=== PATIENT | male | born 1955 | race Caucasian/White ===

== ENCOUNTER 2019-11-29 09:51 | Emergency (ER) | payer MEDICARE, BC ==
[2019-11-29] MEDS: Sodium Chloride 0.9% 1,000 ML IV ONE (10:30)
--- NOTE | 2019-11-29 10:36 | EDM.PDOC ---
ED HPI GENERAL MEDICAL PROBLEM - General Chief Complaint: General Stated Complaint: NAUSEA Time Seen by Provider: 11/29/19 10:25 Source of Information: Reports: Patient History Limitations: Reports: No Limitations - History of Present Illness INITIAL COMMENTS - FREE TEXT/NARRATIVE: Comes into the emergency department with complaint of nausea secondary to chemotherapy. Patient states he had chemotherapy on Friday and started having significant amount of nausea after. He states he has had this happen before and waited approximately a week before seeking treatment however he states that he did not want to wait that long again. He does have Zofran at home and was using that however has not had any relief. He states that he is not able to keep any sort of liquid or food particles down without vomiting them up. Patient states that he concerned that he may become dehydrated so he wanted to be evaluated and nausea under control. Patient denies having any fever, cough, headache, peripheral edema or chest pain. 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 He states most of the treatments have gone fairly well however severe nausea has been 1 of the major side effects at times. Denies any COVID -19 symptoms. Has been relatively healthy throughout the whole course of his cancer diagnosis Onset: Sudden - Related Data Allergies Allergy/AdvReac Type Severity Reaction Status Date / Time No Known Allergies Allergy Verified 11/10/14 06:42 Home Meds: Home Meds Acetaminophen [Tylenol Extra Strength] 500 - 1,000 mg PO Q4H PRN 11/03/14 [ History] Acetaminophen/Diphenhydramine [Tylenol Pm Ex-Strength Caplet] 2 each PO BEDTIME PRN 11/03/14 [History] Cholecalciferol (Vitamin D3) [Vitamin D3] 2,000 unit PO DAILY 11/03/14 [History] Docusate Sodium [Colace] 100 - 200 mg PO DAILY PRN 11/03/14 [History] FLUoxetine [PROzac] 40 mg PO DAILY 11/03/14 [History] Lisinopril 40 mg PO DAILY 11/03/14 [History] Meloxicam [Mobic] 7.5 mg PO DAILY 11/03/14 [History] Metoclopramide [Reglan] 5 mg PO TIDAC 11/03/14 [History] Multivit,Calc,Mins/Iron/Folic [Thera-M] 1 each PO DAILY 11/03/14 [History] Simvastatin [Zocor] 80 mg PO BEDTIME 11/03/14 [History] Warfarin [Coumadin] 7.5 mg PO DAILY 11/03/14 [History] glipiZIDE [Glipizide Xl] 2.5 mg PO DAILY 11/03/14 [History] metFORMIN [Glucophage] 1,000 mg PO BIDMEALS 11/03/14 [History] ED ROS GENERAL - Review of Systems Review Of Systems: See Below Constitutional: Reports: Decreased Appetite. Denies: Fever, Chills HEENT: Reports: No Symptoms Respiratory: Reports: No Symptoms Cardiovascular: Reports: No Symptoms Endocrine: Reports: No Symptoms GI/Abdominal: Reports: Nausea, Vomiting : Reports: No Symptoms Musculoskeletal: Reports: No Symptoms Skin: Reports: No Symptoms Neurological: Reports: No Symptoms Psychiatric: Reports: No Symptoms Hematologic/Lymphatic: Reports: No Symptoms ED EXAM, GENERAL - Physical Exam Exam: See Below Exam Limited By: No Limitations General Appearance: Alert, WD/WN, No Apparent Distress Eye Exam: Bilateral Eye: EOMI, PERRL Throat/Mouth: Normal Inspection, Normal Lips, Normal Voice Head: Atraumatic, Normocephalic Neck: Normal Inspection, Supple, Non-Tender, Full Range of Motion Respiratory/Chest: No Respiratory Distress, Lungs Clear, Normal Breath Sounds, No Accessory Muscle Use, Chest Non-Tender Cardiovascular: Normal Peripheral Pulses, Regular Rate, Rhythm, No Edema, No Murmur GI/Abdominal: Normal Bowel Sounds, Soft, Non-Tender, No Distention, No Mass Back Exam: Normal Inspection, Full Range of Motion Extremities: Normal Inspection, Normal Range of Motion, Non-Tender, Normal Capillary Refill Neurological: Alert, Oriented, CN II-XII Intact, Normal Gait Psychiatric: Normal Affect, Normal Mood Skin Exam: Warm, Dry, Intact, Normal Color, No Rash Course - Orders/Labs/Meds Labs: Laboratory Tests 11/29/19 11/29/19 Range/Units 10:25 10:25 WBC 8.4 (4.0-10.0) x10^3/uL RBC 5.09 (4.5-6.0) x10^6/uL Hgb 14.9 (14.0-18.0) g/dL Hct 43.0 (40.0-52.0) % MCV 84.5 (78.0-93.0) fL MCH 29.3 (26.0-32.0) pg MCHC 34.7 (32.0-36.0) g/dL RDW Coeff of Phuc 15.5 H (10.0-15.0) % Plt Count 290 (130-400) x10^3/uL Neut % (Auto) 89.1 H (50.0-80.0) % Lymph % (Auto) 9.4 L (25.0-50.0) % [place] % (Auto) 0.8 L (2.0-11.0) % Eos % (Auto) 0.1 (0.0-4.0) % Baso % (Auto) 0.6 (0.2-1.2) % Sodium 132 L (136-145) mmol/L Potassium 3.8 (3.5-5.1) mmol/L Chloride 90 L (98-107) mmol/L Carbon Dioxide 28 (21-32) mmol/L Anion Gap 17.8 (10-20) mmol/L BUN 16 (7-18) mg/dL Creatinine 1.1 (0.70-1.30) mg/dL Est Cr Clr Drug Dosing TNP Estimated GFR (MDRD) > 60 Glucose 392 H (74-106) mg/dL Calcium 9.1 (8.5-10.1) mg/dL Corrected Calcium 9.42 (8.5-10.1) mg/dL Total Bilirubin 0.7 (0.2-1.0) mg/dL AST 49 H (15-37) U/L ALT 32 (16-63) U/L Alkaline Phosphatase 98 (46-116) U/L Creatine Kinase 181 (39-308) U/L Total Protein 7.4 (6.4-8.2) g/dL Albumin 3.6 (3.4-5.0) g/dL Globulin 3.8 Albumin/Globulin Ratio 0.95 Meds: Medications Discontinued Medications Generic Name Dose Route Start Last Admin Trade Name Freq PRN Reason Stop Dose Admin Diphenhydramine HCl 25 mg 11/29/19 11:27 11/29/19 11:41 Benadryl IVPUSH 11/29/19 11:28 25 mg ONETIME ONE Administration Sodium Chloride 1,000 mls @ 1,000 mls/hr 11/29/19 10:30 11/29/19 10:30 Normal Saline IV 11/29/19 11:29 1,000 mls/hr ONETIME ONE Administration Metoclopramide HCl 10 mg 11/29/19 11:10 11/29/19 11:15 Reglan IVPUSH 11/29/19 11:11 10 mg ONETIME ONE Administration Prochlorperazine Edisylate 10 mg 11/29/19 10:30 11/29/19 10:38 Compazine IV 11/29/19 10:31 10 mg ONETIME ONE Administration Departure - Departure Time of Disposition: 12:00 Disposition: Home, Self-Care 01 Clinical Impression: Chemotherapy induced nausea and vomiting - Discharge Information *PRESCRIPTION DRUG MONITORING PROGRAM REVIEWED*: Not Applicable *COPY OF PRESCRIPTION DRUG MONITORING REPORT IN PATIENT VIELKA: Not Applicable Instructions: Nausea and Vomiting, Adult, [id number] Forms: ED Department Discharge Additional Instructions: 1. rest 2. increase your water intake 3. Continue all at home medications 4. Activity and diet as tolerated 5. Can take over the counter Tylenol or ibuprofen for any pain or discomfort 6. Follow up with PCP if symptoms continue, return, or progress 7. Call with any questions or concerns Sepsis Event Note - Focused Exam Date Exam was Performed: 11/29/19 Time Exam was Performed: 12:00 - Assessment/Plan Assessment:: 1. chemotherapy induced nausea and vomiting Plan: 1. Compazine, Reglan and Benadryl IV given in the ER. 2. IV initiated in the emergency department 3. IV fluids provided 4. Labs completed in the the ER results reviewed with the patient 5. Patient and nursing staff was updated regarding the plan of care 6. Education provided the patient regarding activity, diet, rest, over-the- counter medication modalities, and follow-up care was provided 7. Patient and family are agreeable to the above plan of care 8. All questions and concerns were addressed with the patient and family prior to discharge
[2019-11-29] MEDS: Prochlorperazine 10 MG/2 ML SDV IV ONE (10:38)
[2019-11-29 11:06] LABS: ANION GAP 17.8 mmol/L (10-20); CHLORIDE,CL 90 mmol/L (98-107); SODIUM,NA 132 mmol/L (136-145)
[2019-11-29] MEDS: Metoclopramide 10 MG/2 ML SDV IVPUSH ONE (11:15)
[2019-11-29] MEDS: diphenhydrAMINE 50 MG/ML SDV IVPUSH ONE (11:41)
[2019-11-29 13:36] VITALS: BP 124/80; PULSE 90
== END 2019-11-29 12:10 | disposition home or self-care (01) ==
LOC: VM.ED 09:51
DX: R11.2 Nausea with vomiting, unspecified (principal); T45.1X5A Adverse effect of antineoplastic and immunosuppressive drugs, initial encounter; Z79.899 Other long term (current) drug therapy; Z79.01 Long term (current) use of anticoagulants
CPT/HCPCS: 80053; 82550; 85025; 96361; 96374; 96375; 99283-GF; 99284-25; J0780; J1200; J2765; J7030

== ENCOUNTER 2020-03-06 12:58 | Inpatient (IN) | payer MEDICARE, BC, MEDICAID ==
[2020-03-06] MEDS ORDERED: Acetaminophen/Diphenhydramine 500-25 MG Tab PO PRN (15:05)
[2020-03-06] MEDS ORDERED: OLANZapine 5 MG Tab PO PRN (15:05)
[2020-03-06] MEDS ORDERED: LORazepam 1 MG Tab PO PRN (15:05)
--- NOTE | 2020-03-06 15:12 | PCM.HP.2 ---
H&P History of Present Illness - General Date of Service: 03/06/20 Admit Problem/Dx: Admission Diagnosis/Problem Admission Diagnosis/Problem Carcinoma of prostate Source of Information: Patient History Limitations: Reports: No Limitations - History of Present Illness Initial Comments - Free Text/Narative: Mr. Mian is a 65 yo male with PMH of metastatic prostate cancer, HTN, h/o TIA, HLD, diabetes, obesity, and depression who is admitted to swing bed for strengthening after an acute hospitalization last week at [facility]. He was hospitalized for symptom (pain, nausea) control as well as to receive his next round of chemotherapy. His medications were adjusted and he was given the chemotherapy. Symptoms were controlled and he was discharged home at the end of last week in stable condition. By the following morning, he could tell that it was not going to go well at home. He noted significant weakness and difficulty ambulating secondary to the weakness as well as to poor balance. He has a friend that has been helping him at home but he has basically been requiring 24/7 cares over the weekend so he had reached out to see if swing bed was an option. He has had some nausea but this has been overall controlled. He has vomited a couple times today but had not been vomiting since discharge otherwise. He has some pain in his back and hip but rates this at 3/10 and says it is well controlled on the morphine. He has had some constipation with the morphine and states that his last BM was last week sometime but he cannot remember the day. He generally has a BM every day to every other day. He has not really had any bloating or abdominal pain related to this. ROS is otherwise negative. He is hoping to get stronger and increase his independence at home. - Related Data Allergies/Adverse Reactions: Allergies Allergy/AdvReac Type Severity Reaction Status Date / Time No Known Allergies Allergy Verified 11/29/19 12:39 Home Medications: Home Meds Acetaminophen [Tylenol Extra Strength] 500 - 1,000 mg PO Q4H PRN 11/03/14 [History] Acetaminophen/Diphenhydramine [Tylenol Pm Ex-Strength Caplet] 2 each PO BEDTIME PRN 11/03/14 [History] Cholecalciferol (Vitamin D3) [Vitamin D3] 2,000 unit PO DAILY 11/03/14 [History] FLUoxetine [PROzac] 40 mg PO DAILY 11/03/14 [History] Multivit,Calc,Mins/Iron/Folic [Thera-M] 1 tab PO DAILY 11/03/14 [History] Warfarin [Coumadin] 7.5 mg PO DAILY 11/03/14 [History] Calcium Carbonate/Vitamin D3 [Os-[place] 500+D] 1 each PO BID 11/29/19 [History] Insulin Degludec [Tresiba] 62 unit SQ DAILY 11/29/19 [History] LORazepam [Ativan] 1 mg PO DAILY PRN 11/29/19 [History] atorvaSTATin [Lipitor] 40 mg PO BEDTIME 11/29/19 [History] Docusate Sodium/Sennosides [Senna Plus] 1 tab PO BID PRN 03/06/20 [History] Morphine [MS Contin] 30 mg PO BID 03/06/20 [History] Naproxen Sodium [Aleve] 220 - 440 mg PO DAILY PRN 03/06/20 [History] OLANZapine [Zyprexa] 5 mg PO BEDTIME PRN 03/06/20 [History] Ondansetron [Zofran] 8 mg PO TID PRN 03/06/20 [History] Oxybutynin [Oxybutynin ER] 5 mg PO DAILY 03/06/20 [History] Phytonadione [Vitamin K] 100 mcg PO DAILY 03/06/20 [History] Prochlorperazine Maleate [Compazine] 10 mg PO QID PRN 03/06/20 [History] lisinopriL [Lisinopril] 20 mg PO DAILY 03/06/20 [History] metFORMIN [Glucophage XR] 1,000 mg PO BID 03/06/20 [History] oxyCODONE HCl [Oxycodone HCL] 10 mg PO Q6H PRN 03/06/20 [History] Past Medical History HEENT History: Reports: Other (See Below) Other HEENT History: presybyopia, astigmatism, disorder of refraction and accommodation, psychophysical visual disturbances. Cardiovascular History: Reports: Blood Clots/VTE/DVT, High Cholesterol, Hypertension Respiratory History: Reports: None Gastrointestinal History: Reports: None Genitourinary History: Reports: Prostate Disorder Musculoskeletal History: Reports: Other (See Below) Other Musculoskeletal History: DJD, plantar fasciitis Neurological History: Reports: CVA Psychiatric History: Reports: Anxiety, Depression Endocrine/Metabolic History: Reports: Diabetes, Type II, Obesity/BMI 30+ Oncologic (Cancer) History: Reports: Bone, Metastatic, Prostate - Past Surgical History Male Surgical History: Reports: Other (See Below) (hydrocelectomy) Neurological Surgical History: Reports: Lumbar Spine Musculoskeletal Surgical History: Reports: Knee Replacement Social & Family History - Family History Cardiac: Reports: Heart Failure Neurological: Reports: CVA - Tobacco Use Smoking Status *Q: Former Smoker Used Tobacco, but Quit: Yes Month/Year Tobacco Last Used: 01/2010 - Caffeine Use Caffeine Use: Reports: None - Alcohol Use Alcohol Use History: No Alcohol Use in Last Twelve Months: No - Recreational Drug Use Recreational Drug Use: Yes Drug Use in Last 12 Months: Yes Recreational Drug Type: Reports: Marijuana/Hashish Recreational Drug Use Frequency: Daily - Living Situation & Occupation Living situation: Reports: Single, Alone 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 Denies: Fever, Chills HEENT: Reports: No Symptoms Pulmonary: Reports: No Symptoms Cardiovascular: Reports: No Symptoms Gastrointestinal: Reports: No Symptoms Genitourinary: Reports: No Symptoms Musculoskeletal: Reports: Back Pain, Leg Pain Skin: Reports: No Symptoms Psychiatric: Reports: No Symptoms Neurological: Reports: No Symptoms Exam - Exam Exam: See Below - Vital Signs Vital Signs: Last Vital Signs Temp 36.6 C 03/06/20 14:38 Pulse 108 H 03/06/20 14:38 Resp 16 03/06/20 14:38 BP 98/63 03/06/20 14:38 Pulse Ox 90 L 03/06/20 14:38 Weight: 127.732 kg - Exam General: Alert, Oriented, Cooperative HEENT: Conjunctiva Clear, Mucosa Moist & [place], Posterior Pharynx Clear, Pupils Equal, Pupils Reactive Neck: Supple, Trachea Midline Lungs: Clear to Auscultation, Normal Respiratory Effort Cardiovascular: Regular Rate, Regular Rhythm, Normal S1, Normal S2 GI/Abdominal Exam: Normal Bowel Sounds, Soft, Non-Tender, No Organomegaly, No Distention, No Mass Extremities: Normal Inspection, No Pedal Edema, Normal Capillary Refill Peripheral Pulses: 2+: Radial (L), Radial (R) Skin: Warm, Dry, Intact Sepsis Event Note - Evaluation Sepsis Screening Result: No Definite Risk - Focused Exam Vital Signs: Vital Signs Temp Pulse Resp BP Pulse Ox 03/06/20 14:38 36.6 C 108 H 16 98/63 90 L *Q Meaningful Use (ADM) - VTE *Q VTE Anticoagulation Contraindications: Med/TX Not Indicated/Need - Problem List (1) Generalized weakness SNOMED Code(s): 62406516 ICD Code: R53.1 - WEAKNESS Status: Acute Current Visit: Yes (2) Prostate cancer metastatic to bone SNOMED Code(s): 879066794 ICD Code: C61 - MALIGNANT NEOPLASM OF PROSTATE; C79.51 - SECONDARY MALIGNANT NEOPLASM OF BONE Status: Chronic Current Visit: Yes (3) Constipation SNOMED Code(s): 11186399 ICD Code: K59.00 - CONSTIPATION, UNSPECIFIED Status: Acute Current Visit: Yes Qualifiers: Constipation type: drug induced constipation Qualified Code(s): K59.03 - Drug induced constipation (4) Hypertension SNOMED Code(s): 21039626 ICD Code: I10 - ESSENTIAL (PRIMARY) HYPERTENSION Status: Chronic Current Visit: Yes Qualifiers: Hypertension type: essential hypertension Qualified Code(s): I10 - Essential (primary) hypertension (5) Diabetes SNOMED Code(s): 81614032 ICD Code: E11.9 - TYPE 2 DIABETES MELLITUS WITHOUT COMPLICATIONS Status: Chronic Current Visit: Yes Qualifiers: Diabetes mellitus type: type 2 Diabetes mellitus 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 insulin use: with mcfp use Diabetes mellitus complication status: without complication Qualified Code(s): E11.9 - Type 2 diabetes mellitus without complications; Z79.4 - 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 (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) use of insulin (6) Hyperlipidemia SNOMED Code(s): 15829073 ICD Code: E78.5 - HYPERLIPIDEMIA, UNSPECIFIED Status: Chronic Current Visit: Yes Qualifiers: Hyperlipidemia type: unspecified Qualified Code(s): E78.5 - Hyperlipidemia, unspecified (7) Hx TIA/stroke w/o resid SNOMED Code(s): 661847637, 363069201, 470311620 ICD Code: Z86.73 - PRSNL HX OF TIA (TIA), AND CEREB INFRC W/O RESID DEFICITS Status: Chronic Current Visit: Yes (8) Depression SNOMED Code(s): 42828880 ICD Code: F32.9 - MAJOR DEPRESSIVE DISORDER, SINGLE EPISODE, UNSPECIFIED Status: Chronic Current Visit: Yes Qualifiers: Depression Type: unspecified Qualified Code(s): F32.9 - Major depressive disorder, single episode, unspecified Problem List Initiated/Reviewed/Updated: Yes Orders Last 24hrs: Active Orders 24 hr Category Date Time Status Admission Status [Patient Status] [ADT] Routine ADT 03/06/20 13:29 Active Notify Provider Vital Signs [RC] ASDIRECTED Care 03/06/20 15:04 Ordered Oxygen Therapy [RC] PRN Care 03/06/20 15:04 Ordered Up With Assistance [RC] ASDIRECTED Care 03/06/20 15:04 Ordered VTE/DVT Education [RC] PER UNIT ROUTINE Care 03/06/20 15:04 Ordered Vital Signs [RC] PER UNIT ROUTINE Care 03/06/20 15:04 Ordered Consult to Case Management/Fire Battalion Chief [CONS] Cons 03/06/20 14:42 Active Routine OT Evaluation and Treatment [CONS] Routine Cons 03/06/20 15:04 Ordered PT Evaluation and Treatment [CONS] Routine Cons 03/06/20 15:04 Ordered Regular Diet [DIET] Diet 03/06/20 Dinner Ordered Acetaminophen [Tylenol Extra Strength] Med 03/06/20 15:05 Ordered 500 mg PO Q4H PRN Acetaminophen/Diphenhydramine [Tylenol Pm Ex-Strength Med 03/06/20 15:05 Ordered Caplet] 2 each PO BEDTIME PRN Calcium Carbonate/Vitamin D3 [Os-[place] 500+D] Med 03/06/20 20:00 Ordered 1 each PO BID Cholecalciferol (Vitamin D3) [Vitamin D3] Med 03/07/20 08:00 Ordered 2,000 unit PO DAILY Docusate Sodium/Sennosides [Senna Plus] Med 03/06/20 20:00 Ordered 1 tab PO BID FLUoxetine [PROzac] Med 03/07/20 08:00 Ordered 40 mg PO DAILY Insulin Degludec [Tresiba] Med 03/07/20 08:00 Ordered 62 unit SQ DAILY LORazepam [Ativan] Med 03/06/20 15:05 Ordered 1 mg PO DAILY PRN Morphine [MS Contin] Med 03/06/20 20:00 Ordered 30 mg PO BID Multivit,Calc,Mins/Iron/Folic [Thera-M] Med 03/07/20 08:00 Ordered 1 tab PO DAILY Naproxen Sodium [Aleve] Med 03/06/20 15:05 Ordered 220 mg PO DAILY PRN OLANZapine [Zyprexa] Med 03/06/20 15:05 Ordered 5 mg PO BEDTIME PRN Ondansetron Med 03/06/20 15:05 Ordered 8 mg PO TID PRN Oxybutynin [Oxybutynin ER] Med 03/07/20 08:00 Ordered 5 mg PO DAILY Phytonadione [Vitamin K] Med 03/07/20 08:00 Ordered 100 mcg PO DAILY Prochlorperazine Maleate [Compazine] Med 03/06/20 15:05 Ordered 10 mg PO QID PRN Warfarin Med 03/07/20 08:00 Ordered 7.5 mg PO DAILY atorvaSTATin [Lipitor] Med 03/06/20 20:00 Ordered 40 mg PO BEDTIME lisinopriL [Lisinopril] Med 03/07/20 08:00 Ordered 20 mg PO DAILY oxyCODONE HCl Med 03/06/20 15:05 Ordered 10 mg PO Q6H PRN Anticoagulation Contraindications VTE [AST] Routine Oth 03/06/20 15:04 Ordered Resuscitation Status Routine Resus Stat 03/06/20 15:04 Ordered Medication Orders Non-Formulary Medication (Morphine [Ms Contin]) 30 mg PO BID KENZIE Non-Formulary Medication (Oxycodone Hcl) 10 mg PO Q6H PRN PRN Reason: Pain (moderate 4-6) Non-Formulary Medication (Docusate Sodium/Sennosides [Senna Plus]) 1 tab PO BID KENZIE Non-Formulary Medication (Lisinopril [Lisinopril]) 20 mg PO DAILY KENZIE Non-Formulary Medication (Prochlorperazine Maleate [Compazine]) 10 mg PO QID PRN PRN Reason: Nausea Non-Formulary Medication (Warfarin) 7.5 mg PO DAILY KENZIE Non-Formulary Medication (Phytonadione [Vitamin K]) 100 mcg PO DAILY KENZIE Non-Formulary Medication (Oxybutynin [Oxybutynin Er]) 5 mg PO DAILY KENZIE Non-Formulary Medication (Lorazepam [Ativan]) 1 mg PO DAILY PRN PRN Reason: Anxiety Non-Formulary Medication (Naproxen Sodium [Aleve]) 220 mg PO DAILY PRN PRN Reason: Pain Non-Formulary Medication (Insulin Degludec [Tresiba]) 62 unit SQ DAILY KENZIE Non-Formulary Medication (Ondansetron) 8 mg PO TID PRN PRN Reason: Nausea Non-Formulary Medication (Olanzapine [Zyprexa]) 5 mg PO BEDTIME PRN PRN Reason: Nausea Non-Formulary Medication (Fluoxetine [Prozac]) 40 mg PO DAILY KENZIE Non-Formulary Medication (Atorvastatin [Lipitor]) 40 mg PO BEDTIME KENZIE Non-Formulary Medication (Calcium Carbonate/Vitamin D3 [Os-[place] 500+D]) 1 each PO BID KENZIE Non-Formulary Medication (Acetaminophen [Tylenol Extra Strength]) 500 mg PO Q4H PRN PRN Reason: Pain (mild 1-3) Non-Formulary Medication (Acetaminophen/Diphenhydramine [Tylenol Pm Ex-Strength Caplet]) 2 each PO BEDTIME PRN PRN Reason: Sleep Non-Formulary Medication (Cholecalciferol (Vitamin D3) [Vitamin D3]) 2,000 unit PO DAILY KENZIE Non-Formulary Medication (Multivit,Calc,Mins/Iron/Folic [Thera-M]) 1 tab PO DAILY KENZIE Assessment/Plan Comment:: 65 yo male admitted to swing bed for strengthening post inpatient hospitalization at [place] last week. #1 Generalized weakness #2 Metastatic prostate cancer #3 Drug induced constipation - PT/OT consults. - Patient has follow-ups scheduled with oncology for ongoing chemotherapy. - Continue current anti-emetics and current pain regimen. - Will schedule senna-s to help with constipation. If not effective in the next 1-2 days, will add miralax. #4 Hypertension #5 Diabetes #6 Hyperlipidemia #7 s/p TIA #8 Depression - Continue home medications. - Will check glucoses fasting once/day. - Recheck INR tomorrow as plan had been for today per anticoagulation clinic. Patient will be admitted to swing bed and will remain on swing bed as long as progression with therapy goals is demonstrated. Medications continued as per hospital discharge list. Code status is DNR/DNI - discussed with patient on admission. No indication for VTE prophylaxis as he is on warfarin.
[2020-03-06] MEDS: metFORMIN 500 MG Tab PO SCH (18:28)
[2020-03-06] MEDS ORDERED: Warfarin 2.5 MG Tab PO SCH (20:00)
[2020-03-06] MEDS: atorvaSTATin 40 MG Tab PO SCH (20:34)
[2020-03-06] MEDS: Morphine 30 MG Tab.ER PO SCH (20:34)
[2020-03-06] MEDS: Calcium Carbonate/Vitamin D3 1250 MG-200 Unit Tab PO SCH (20:34)
[2020-03-06] MEDS: Prochlorperazine 5 MG Tab PO PRN (20:39)
[2020-03-06] MEDS: INSULIN DEGLUDEC SQ SCH (20:57)
[2020-03-07] MEDS: Ondansetron 4 MG Tab.DIS PO PRN (05:17)
[2020-03-07] MEDS: Phytonadione 100 MCG Tab PO SCH (07:40)
[2020-03-07] MEDS: Cholecalciferol (Vitamin D3) 25 MCG Tab PO SCH (07:40)
[2020-03-07] MEDS: Calcium Carbonate/Vitamin D3 1250 MG-200 Unit Tab PO SCH ×2 (07:40→20:42)
[2020-03-07] MEDS: Lisinopril 20 MG Tab PO SCH (07:41)
[2020-03-07] MEDS: Morphine 30 MG Tab.ER PO SCH ×2 (07:41→20:43)
[2020-03-07] MEDS: Oxybutynin 5 MG Tab.ER PO SCH (07:41)
[2020-03-07] MEDS: metFORMIN 500 MG Tab PO SCH ×2 (07:41→17:02)
[2020-03-07] MEDS: FLUoxetine 20 MG Cap PO SCH (07:41)
[2020-03-07] MEDS: Multivitamins with Iron/Calcium/Folic Acid/Minerals Tab PO SCH (07:41)
[2020-03-07] MEDS ORDERED: [UNRECOGNIZED DRUG - REMARK] SCH (13:00)
[2020-03-07] MEDS: Prochlorperazine 5 MG Tab PO PRN ×2 (17:02→21:03)
[2020-03-07] MEDS: oxyCODONE 5 MG Tab PO PRN (17:03)
[2020-03-07] MEDS: atorvaSTATin 40 MG Tab PO SCH (20:42)
[2020-03-07] MEDS: Warfarin 2.5 MG Tab PO SCH (20:44)
[2020-03-07] MEDS: INSULIN DEGLUDEC SQ SCH (21:03)
[2020-03-08] MEDS: Prochlorperazine 5 MG Tab PO PRN ×3 (08:27→20:39)
[2020-03-08] MEDS: metFORMIN 500 MG Tab PO SCH ×2 (08:28→18:06)
[2020-03-08] MEDS: Morphine 30 MG Tab.ER PO SCH ×3 (08:29→20:45)
[2020-03-08] MEDS: FLUoxetine 20 MG Cap PO SCH (08:29)
[2020-03-08] MEDS: Oxybutynin 5 MG Tab.ER PO SCH (08:31)
[2020-03-08] MEDS: Calcium Carbonate/Vitamin D3 1250 MG-200 Unit Tab PO SCH ×2 (08:31→20:38)
[2020-03-08] MEDS: Multivitamins with Iron/Calcium/Folic Acid/Minerals Tab PO SCH (08:31)
[2020-03-08] MEDS: Phytonadione 100 MCG Tab PO SCH (08:31)
[2020-03-08] MEDS: Lisinopril 20 MG Tab PO SCH (08:31)
[2020-03-08] MEDS: Cholecalciferol (Vitamin D3) 25 MCG Tab PO SCH (08:31)
[2020-03-08] MEDS: Acetaminophen 500 MG Tab PO PRN (14:59)
[2020-03-08] MEDS: Polyethylene Glycol 3350 Powder 17 GM Packet PO SCH (14:59)
[2020-03-08] MEDS: oxyCODONE 5 MG Tab PO PRN ×2 (14:59→20:40)
[2020-03-08] MEDS: Ondansetron 4 MG Tab.DIS PO PRN (18:06)
[2020-03-08] MEDS: atorvaSTATin 40 MG Tab PO SCH (20:39)
[2020-03-08] MEDS: Warfarin 2.5 MG Tab PO SCH (20:40)
[2020-03-08] MEDS: INSULIN DEGLUDEC SQ SCH (20:45)
--- NOTE | 2020-03-08 21:29 | PCM.SN.2 ---
- Free Text/Narrative Note: S: Patient seen for follow-up after admission to swing bed 2 days ago. States that today is not a good day. Yesterday was a good day but today not so much. He is having more nausea but no vomiting. His strength is also not as good. He has not had a bowel movement yet. O: Vitals reviewed. Mucous membranes moist. Heart with RRR, normal S1 and S2. Lungs CTAB. Abdomen with normoactive bowel sounds, nontender, nondistended. Skin is warm and dry. A/P: #1 Generalized weakness - Continue PT and OT. #2 Constipation #3 Nausea - Suspect at least part of his nausea issue is the constipation. - Will add miralax today and reassess in 2 days. - No other medication changes. Continue swing bed cares. Will reassess later this week.
[2020-03-09] MEDS: oxyCODONE 5 MG Tab PO PRN ×3 (05:47→17:07)
[2020-03-09] MEDS: Ondansetron 4 MG Tab.DIS PO PRN ×3 (05:48→17:06)
[2020-03-09] MEDS: Prochlorperazine 5 MG Tab PO PRN ×3 (08:30→21:05)
[2020-03-09] MEDS: FLUoxetine 20 MG Cap PO SCH (08:30)
[2020-03-09] MEDS: Morphine 30 MG Tab.ER PO SCH ×2 (08:30→20:59)
[2020-03-09] MEDS: Phytonadione 100 MCG Tab PO SCH (08:32)
[2020-03-09] MEDS: metFORMIN 500 MG Tab PO SCH ×2 (08:32→18:53)
[2020-03-09] MEDS: Cholecalciferol (Vitamin D3) 25 MCG Tab PO SCH (08:32)
[2020-03-09] MEDS: Lisinopril 20 MG Tab PO SCH (08:33)
[2020-03-09] MEDS: Calcium Carbonate/Vitamin D3 1250 MG-200 Unit Tab PO SCH ×2 (08:33→21:00)
[2020-03-09] MEDS: Oxybutynin 5 MG Tab.ER PO SCH (08:33)
[2020-03-09] MEDS: Multivitamins with Iron/Calcium/Folic Acid/Minerals Tab PO SCH (08:33)
[2020-03-09] MEDS: Polyethylene Glycol 3350 Powder 17 GM Packet PO SCH (08:34)
[2020-03-09] MEDS: atorvaSTATin 40 MG Tab PO SCH (20:59)
[2020-03-09] MEDS: Warfarin 2.5 MG Tab PO SCH (20:59)
[2020-03-09] MEDS: INSULIN DEGLUDEC SQ SCH (21:02)
[2020-03-10] MEDS: Prochlorperazine 5 MG Tab PO PRN ×2 (05:53→16:27)
[2020-03-10] MEDS: oxyCODONE 5 MG Tab PO PRN (05:53)
[2020-03-10] MEDS: Cholecalciferol (Vitamin D3) 25 MCG Tab PO SCH (08:21)
[2020-03-10] MEDS: Multivitamins with Iron/Calcium/Folic Acid/Minerals Tab PO SCH (08:21)
[2020-03-10] MEDS: Morphine 30 MG Tab.ER PO SCH ×2 (08:21→20:16)
[2020-03-10] MEDS: Oxybutynin 5 MG Tab.ER PO SCH (08:21)
[2020-03-10] MEDS: Lisinopril 20 MG Tab PO SCH (08:22)
[2020-03-10] MEDS: Phytonadione 100 MCG Tab PO SCH (08:22)
[2020-03-10] MEDS: Polyethylene Glycol 3350 Powder 17 GM Packet PO SCH ×2 (08:22→20:17)
[2020-03-10] MEDS: metFORMIN 500 MG Tab PO SCH ×2 (08:22→18:02)
[2020-03-10] MEDS: Calcium Carbonate/Vitamin D3 1250 MG-200 Unit Tab PO SCH ×2 (08:22→20:15)
[2020-03-10] MEDS: FLUoxetine 20 MG Cap PO SCH (08:22)
[2020-03-10] MEDS: Ondansetron 4 MG Tab.DIS PO PRN ×2 (08:30→20:17)
--- NOTE | 2020-03-10 11:10 | PCM.SN.2 ---
- Free Text/Narrative Note: S: Patient seen for swing bed follow-up. He is doing much better than 2 days ago. His nausea is better controlled and he is vomiting less. He still has not had a bowel movement. He is passing gas. He does not feel overly bloated and is not having stomach pain. His energy level is better today as well. O: Vitals reviewed. Resting comfortably in bed in no distress. Lungs CTAB. Heart RRR with normal S1 and S2, no murmurs. Abdomen with normal bowel sounds, soft, nontender, nondistended. A/P #1 Constipation #2 Nausea - Nausea now much better controlled. - Still no BM. Will increase miralax to BID. #3 Diabetes - Had low glucose again this am, which makes 2 this week. - Will decrease tresiba to 56 units daily.
[2020-03-10] MEDS: atorvaSTATin 40 MG Tab PO SCH (20:16)
[2020-03-10] MEDS: Warfarin 2.5 MG Tab PO SCH (20:24)
[2020-03-11] MEDS: Phytonadione 100 MCG Tab PO SCH (08:18)
[2020-03-11] MEDS: Oxybutynin 5 MG Tab.ER PO SCH (08:18)
[2020-03-11] MEDS: metFORMIN 500 MG Tab PO SCH ×2 (08:18→18:12)
[2020-03-11] MEDS: Polyethylene Glycol 3350 Powder 17 GM Packet PO SCH ×2 (08:18→20:05)
[2020-03-11] MEDS: FLUoxetine 20 MG Cap PO SCH (08:18)
[2020-03-11] MEDS: Calcium Carbonate/Vitamin D3 1250 MG-200 Unit Tab PO SCH ×2 (08:18→20:04)
[2020-03-11] MEDS: Multivitamins with Iron/Calcium/Folic Acid/Minerals Tab PO SCH (08:18)
[2020-03-11] MEDS: Lisinopril 20 MG Tab PO SCH (08:18)
[2020-03-11] MEDS: Morphine 30 MG Tab.ER PO SCH ×2 (08:18→20:05)
[2020-03-11] MEDS: Cholecalciferol (Vitamin D3) 25 MCG Tab PO SCH (08:18)
[2020-03-11] MEDS: Prochlorperazine 5 MG Tab PO PRN (08:25)
[2020-03-11] MEDS: oxyCODONE 5 MG Tab PO PRN (18:11)
[2020-03-11] MEDS: Warfarin 2.5 MG Tab PO SCH (20:04)
[2020-03-11] MEDS: atorvaSTATin 40 MG Tab PO SCH (20:05)
[2020-03-11] MEDS: Ondansetron 4 MG Tab.DIS PO PRN (20:05)
[2020-03-12] MEDS: Prochlorperazine 5 MG Tab PO PRN ×2 (03:56→16:56)
[2020-03-12] MEDS: Ondansetron 4 MG Tab.DIS PO PRN ×2 (05:38→19:34)
[2020-03-12] MEDS: Acetaminophen 500 MG Tab PO PRN (05:41)
[2020-03-12] MEDS: Morphine 30 MG Tab.ER PO SCH ×2 (08:05→19:33)
[2020-03-12] MEDS: Lisinopril 20 MG Tab PO SCH (08:05)
[2020-03-12] MEDS: Polyethylene Glycol 3350 Powder 17 GM Packet PO SCH ×2 (08:05→19:32)
[2020-03-12] MEDS: Oxybutynin 5 MG Tab.ER PO SCH (08:06)
[2020-03-12] MEDS: Calcium Carbonate/Vitamin D3 1250 MG-200 Unit Tab PO SCH ×2 (08:06→19:34)
[2020-03-12] MEDS: metFORMIN 500 MG Tab PO SCH ×2 (08:06→17:57)
[2020-03-12] MEDS: Cholecalciferol (Vitamin D3) 25 MCG Tab PO SCH (08:06)
[2020-03-12] MEDS: FLUoxetine 20 MG Cap PO SCH (08:06)
[2020-03-12] MEDS: Phytonadione 100 MCG Tab PO SCH (08:06)
[2020-03-12] MEDS: Multivitamins with Iron/Calcium/Folic Acid/Minerals Tab PO SCH (08:06)
[2020-03-12] MEDS: Warfarin 2.5 MG Tab PO SCH (19:33)
[2020-03-12] MEDS: atorvaSTATin 40 MG Tab PO SCH (19:34)
[2020-03-13] MEDS: Ondansetron 4 MG Tab.DIS PO PRN ×2 (04:17→21:06)
[2020-03-13] MEDS: Acetaminophen 500 MG Tab PO PRN ×2 (04:17→22:52)
[2020-03-13] MEDS: Phytonadione 100 MCG Tab PO SCH (07:57)
[2020-03-13] MEDS: Calcium Carbonate/Vitamin D3 1250 MG-200 Unit Tab PO SCH ×2 (07:57→20:44)
[2020-03-13] MEDS: Multivitamins with Iron/Calcium/Folic Acid/Minerals Tab PO SCH (07:57)
[2020-03-13] MEDS: Lisinopril 20 MG Tab PO SCH (07:57)
[2020-03-13] MEDS: Cholecalciferol (Vitamin D3) 25 MCG Tab PO SCH (07:58)
[2020-03-13] MEDS: Morphine 30 MG Tab.ER PO SCH ×2 (07:58→20:44)
[2020-03-13] MEDS: metFORMIN 500 MG Tab PO SCH ×2 (07:58→18:02)
[2020-03-13] MEDS: Polyethylene Glycol 3350 Powder 17 GM Packet PO SCH ×2 (07:58→20:44)
[2020-03-13] MEDS: Oxybutynin 5 MG Tab.ER PO SCH (07:58)
[2020-03-13] MEDS: FLUoxetine 20 MG Cap PO SCH (07:58)
[2020-03-13] MEDS: oxyCODONE 5 MG Tab PO PRN (17:05)
[2020-03-13] MEDS: Prochlorperazine 5 MG Tab PO PRN ×2 (17:07→22:53)
[2020-03-13] MEDS ORDERED: Magnesium Citrate Solution 296 ML Bottle PO ONE (18:11)
[2020-03-13] MEDS: atorvaSTATin 40 MG Tab PO SCH (20:44)
[2020-03-13] MEDS: Warfarin 2.5 MG Tab PO SCH (20:48)
[2020-03-13] MEDS ORDERED: Calcium Carbonate 750 MG Tab.Chew PO PRN (21:18)
[2020-03-14] MEDS: Ondansetron 4 MG Tab.DIS PO PRN (05:54)
[2020-03-14] MEDS: Calcium Carbonate/Vitamin D3 1250 MG-200 Unit Tab PO SCH ×2 (08:02→21:02)
[2020-03-14] MEDS: Polyethylene Glycol 3350 Powder 17 GM Packet PO SCH ×2 (08:02→21:04)
[2020-03-14] MEDS: Oxybutynin 5 MG Tab.ER PO SCH (08:03)
[2020-03-14] MEDS: Cholecalciferol (Vitamin D3) 25 MCG Tab PO SCH (08:03)
[2020-03-14] MEDS: Phytonadione 100 MCG Tab PO SCH (08:03)
[2020-03-14] MEDS: Morphine 30 MG Tab.ER PO SCH ×2 (08:03→21:00)
[2020-03-14] MEDS: Multivitamins with Iron/Calcium/Folic Acid/Minerals Tab PO SCH (08:03)
[2020-03-14] MEDS: metFORMIN 500 MG Tab PO SCH ×2 (08:04→18:00)
[2020-03-14] MEDS: FLUoxetine 20 MG Cap PO SCH (08:06)
[2020-03-14] MEDS: Lisinopril 20 MG Tab PO SCH (08:11)
[2020-03-14] MEDS: oxyCODONE 5 MG Tab PO PRN (15:40)
[2020-03-14] MEDS: Prochlorperazine 5 MG Tab PO PRN ×2 (15:40→21:01)
--- NOTE | 2020-03-14 17:20 | PCM.SN.2 ---
- Free Text/Narrative Note: Patient is doing much better today. Had 2 BM's in the past 24 hours. Nausea and pain are controlled. Will continue current regimen. Anticipate d/c home later this week but will check in with PT.
[2020-03-14] MEDS: atorvaSTATin 40 MG Tab PO SCH (20:59)
[2020-03-14] MEDS: Warfarin 2.5 MG Tab PO SCH (20:59)
[2020-03-15 05:52] VITALS: PULSE 96
[2020-03-15] MEDS: Prochlorperazine 5 MG Tab PO PRN ×2 (06:30→16:22)
[2020-03-15] MEDS: Morphine 30 MG Tab.ER PO SCH ×3 (06:30→20:33)
[2020-03-15] MEDS: Ondansetron 4 MG Tab.DIS PO PRN ×2 (08:30→20:36)
[2020-03-15] MEDS: FLUoxetine 20 MG Cap PO SCH (08:30)
[2020-03-15] MEDS: Calcium Carbonate/Vitamin D3 1250 MG-200 Unit Tab PO SCH ×2 (08:31→20:38)
[2020-03-15] MEDS: Cholecalciferol (Vitamin D3) 25 MCG Tab PO SCH (08:31)
[2020-03-15] MEDS: Polyethylene Glycol 3350 Powder 17 GM Packet PO SCH ×2 (08:31→20:39)
[2020-03-15] MEDS: metFORMIN 500 MG Tab PO SCH ×2 (08:31→18:11)
[2020-03-15] MEDS: Oxybutynin 5 MG Tab.ER PO SCH (08:31)
[2020-03-15] MEDS: Lisinopril 20 MG Tab PO SCH (08:31)
[2020-03-15] MEDS: Phytonadione 100 MCG Tab PO SCH (08:31)
[2020-03-15] MEDS: Multivitamins with Iron/Calcium/Folic Acid/Minerals Tab PO SCH (08:31)
[2020-03-15] MEDS: oxyCODONE 5 MG Tab PO PRN (16:23)
[2020-03-15] MEDS: Acetaminophen 500 MG Tab PO PRN (16:23)
[2020-03-15] MEDS: Warfarin 2.5 MG Tab PO SCH (20:32)
[2020-03-15] MEDS: atorvaSTATin 40 MG Tab PO SCH (20:33)
[2020-03-16] MEDS: Polyethylene Glycol 3350 Powder 17 GM Packet PO SCH (07:52)
[2020-03-16] MEDS: Cholecalciferol (Vitamin D3) 25 MCG Tab PO SCH (07:53)
[2020-03-16] MEDS: Morphine 30 MG Tab.ER PO SCH (07:53)
[2020-03-16] MEDS: Phytonadione 100 MCG Tab PO SCH (07:53)
[2020-03-16] MEDS: Oxybutynin 5 MG Tab.ER PO SCH (07:53)
[2020-03-16] MEDS: Calcium Carbonate/Vitamin D3 1250 MG-200 Unit Tab PO SCH (07:53)
[2020-03-16] MEDS: FLUoxetine 20 MG Cap PO SCH (07:53)
[2020-03-16] MEDS: Multivitamins with Iron/Calcium/Folic Acid/Minerals Tab PO SCH (07:53)
[2020-03-16] MEDS: Lisinopril 20 MG Tab PO SCH (07:54)
[2020-03-16] MEDS: metFORMIN 500 MG Tab PO SCH (07:54)
[2020-03-16 07:59] VITALS: BP 124/75
--- NOTE | 2020-03-16 10:51 | PCM.DCSUM1 ---
Discharge Summary - Hospital Course Brief History: Mr. Mina is a 65 yo male who was admitted to swing bed for strengthening and further symptom control after returning home following his acute hospitalization in [place] did not go well. - Discharge Data Discharge Date: 03/16/20 Discharge Disposition: Home, Self-Care 01 Condition: Good - Referral to Home Health Primary Care Physician: Sara Malin MD - Discharge Diagnosis/Problem(s) (1) Generalized weakness SNOMED Code(s): 37756398 ICD Code: R53.1 - WEAKNESS Status: Acute Current Visit: Yes (2) Prostate cancer metastatic to bone SNOMED Code(s): 899105898 ICD Code: C61 - MALIGNANT NEOPLASM OF PROSTATE; C79.51 - SECONDARY MALIGNANT NEOPLASM OF BONE Status: Chronic Current Visit: Yes (3) Constipation SNOMED Code(s): 39636762 ICD Code: K59.00 - CONSTIPATION, UNSPECIFIED Status: Acute Current Visit: Yes Qualifiers: Constipation type: drug induced constipation Qualified Code(s): K59.03 - Drug induced constipation (4) Hypertension SNOMED Code(s): 64858017 ICD Code: I10 - ESSENTIAL (PRIMARY) HYPERTENSION Status: Chronic Current Visit: Yes Qualifiers: Hypertension type: essential hypertension Qualified Code(s): I10 - Essential (primary) hypertension (5) Diabetes SNOMED Code(s): 39772313 ICD Code: E11.9 - TYPE 2 DIABETES MELLITUS WITHOUT COMPLICATIONS Status: Chronic Current Visit: Yes Qualifiers: Diabetes mellitus type: type 2 Diabetes mellitus skilled nursing insulin use: with skilled nursing use Diabetes mellitus complication status: without complication Qualified Code(s): E11.9 - Type 2 diabetes mellitus without complications; Z79.4 - senior living (current) use of insulin (6) Hyperlipidemia SNOMED Code(s): 41593865 ICD Code: E78.5 - HYPERLIPIDEMIA, UNSPECIFIED Status: Chronic Current Visit: Yes Qualifiers: Hyperlipidemia type: unspecified Qualified Code(s): E78.5 - Hyperlipidemia, unspecified (7) Hx TIA/stroke w/o resid SNOMED Code(s): 195322778, 803416919, 002606011 ICD Code: Z86.73 - PRSNL HX OF TIA (TIA), AND CEREB INFRC W/O RESID DEFICITS Status: Chronic Current Visit: Yes (8) Depression SNOMED Code(s): 63012100 ICD Code: F32.9 - MAJOR DEPRESSIVE DISORDER, SINGLE EPISODE, UNSPECIFIED Status: Chronic Current Visit: Yes Qualifiers: Depression Type: unspecified Qualified Code(s): F32.9 - Major depressive disorder, single episode, unspecified - Patient Summary/Data Operative Procedure(s) Performed: none Complications: none Consults: Consultations 03/06/20 14:42 Consult to Case Management/High Lift Mule Operator [CONS] Routine 03/06/20 15:04 OT Evaluation and Treatment [CONS] Routine PT Evaluation and Treatment [CONS] Routine Labs Pending at D/C: none Recommended Follow-up Testing/Procedures: none Planned Operative Procedure(s) after DC: none Hospital Course: He was admitted and continued on scheduled nausea and pain medications. These worked well for symptom control once his dosing was consistent. He has continued to work with PT and has had "good days and bad days." Overall, they feel he has progressed to the point that returning home would be reasonable. Did discuss with the patient that it is likely he will have the same issues after chemotherapy next week and that we can certainly keep him admitted to swing bed through that time. He prefers to be discharged today and then admitted again after chemotherapy in 1 week. Therefore, this will be the plan at this time. His hospitalization was complicated by relatively frequent am hypoglycemia and his insulin doses were decreased. He also had trouble with constipation, which has improved with a scheduled bowel regimen. No other complications during his hospital stay. He will follow-up in clinic on Friday and then plan for admission back to swing bed next . - Patient Instructions Diet: Usual Diet as Tolerated - Discharge Plan *PRESCRIPTION DRUG MONITORING PROGRAM REVIEWED*: No *COPY OF PRESCRIPTION DRUG MONITORING REPORT IN PATIENT VIELKA: No Home Medications: Home Meds Acetaminophen [Tylenol Extra Strength] 500 - 1,000 mg PO Q4H PRN 11/03/14 [History] Acetaminophen/Diphenhydramine [Tylenol Pm Ex-Strength Caplet] 2 each PO BEDTIME PRN 11/03/14 [History] Cholecalciferol (Vitamin D3) [Vitamin D3] 2,000 unit PO DAILY 11/03/14 [History] FLUoxetine [PROzac] 40 mg PO DAILY 11/03/14 [History] Multivit,Calc,Mins/Iron/Folic [Thera-M] 1 tab PO DAILY 11/03/14 [History] Calcium Carbonate/Vitamin D3 [[place] 500+D] 1 each PO BID 11/29/19 [History] LORazepam [Ativan] 1 mg PO DAILY PRN 11/29/19 [History] atorvaSTATin [Lipitor] 40 mg PO BEDTIME 11/29/19 [History] Docusate Sodium/Sennosides [Senna Plus] 1 tab PO BID PRN 03/06/20 [History] Morphine [MS Contin] 30 mg PO BID 03/06/20 [History] Naproxen Sodium [Aleve] 220 - 440 mg PO DAILY PRN 03/06/20 [History] OLANZapine [Zyprexa] 5 mg PO BEDTIME PRN 03/06/20 [History] Ondansetron [Zofran] 8 mg PO TID PRN 03/06/20 [History] Oxybutynin [Oxybutynin ER] 5 mg PO DAILY 03/06/20 [History] Phytonadione [Vitamin K] 100 mcg PO DAILY 03/06/20 [History] Prochlorperazine Maleate [Compazine] 10 mg PO QID PRN 03/06/20 [History] lisinopriL [Lisinopril] 20 mg PO DAILY 03/06/20 [History] metFORMIN [Glucophage XR] 1,000 mg PO BID 03/06/20 [History] oxyCODONE HCl [Oxycodone HCL] 10 mg PO Q6H PRN 03/06/20 [History] Insulin Degludec [Tresiba] 54 unit SQ DAILY #0 03/16/20 [Rx] Warfarin [Coumadin] 3.75 mg PO MoFr@1999 tablet 03/16/20 [Rx] Warfarin [Coumadin] 7.5 mg PO SuTuWeThSa@2000 tablet 03/16/20 [Rx] polyethylene glycoL 3350 [MiraLAX] 17 gm PO BID packet 03/16/20 [Rx] - Discharge Summary/Plan Comment DC Time >30 min.: No - General Info Date of Service: 03/16/20 Subjective Update: Patient states today is a good day and he would really like to be discharged home until his chemotherapy next week. He feels his nausea and pain are well controlled. His strength is adequate to get around his home and do what he needs to do. - Review of Systems General: Reports: No Symptoms HEENT: Reports: No Symptoms Pulmonary: Reports: No Symptoms Cardiovascular: Reports: No Symptoms Gastrointestinal: Reports: No Symptoms Genitourinary: Reports: No Symptoms Musculoskeletal: Reports: No Symptoms Skin: Reports: No Symptoms Neurological: Reports: No Symptoms Psychiatric: Reports: No Symptoms - Patient Data Vitals - Most Recent: Last Vital Signs Temp 36.2 C 03/15/20 05:52 Pulse 96 03/15/20 05:52 Resp 18 03/15/20 05:52 BP 124/75 03/16/20 07:54 Pulse Ox 95 03/15/20 05:52 Weight - Most Recent: 127.732 kg I&O - Last 24 hours: Intake & Output 03/15/20 03/16/20 03/16/20 22:59 06:59 14:59 Intake Total 240 320 Balance 240 320 Lab Results - Last 24 hrs: Laboratory Results - last 24 hr 03/16/20 Range/Units 06:12 POC Glucose 64 L (74-106) mg/dL Med Orders - Current: Current Medications Acetaminophen (Tylenol Extra Strength) 500 mg PO Q4H PRN PRN Reason: Pain (mild 1-3) Last Admin: 03/15/20 16:23 Dose: 500 mg Documented by: Acetaminophen/Diphenhydramine HCl (Tylenol Pm Extra Strength) 2 tab PO BEDTIME PRN PRN Reason: Sleep Atorvastatin Calcium (Lipitor) 40 mg PO BEDTIME [facility] Last Admin: 03/15/20 20:33 Dose: 40 mg Documented by: Calcium Carbonate (Calcium Carbonate/Vitamin D 1250 Mg-200 Unit) 1 tab PO BID [facility] Last Admin: 03/16/20 07:53 Dose: 1 tab Documented by: Calcium Carbonate/Glycine (Tums Extra Strength) 750 mg PO Q2H PRN PRN Reason: Dyspepsia Last Admin: 03/13/20 21:32 Dose: 750 mg Documented by: Cholecalciferol (Vitamin D3) 50 mcg PO DAILY [facility] Last Admin: 03/16/20 07:53 Dose: 50 mcg Documented by: Fluoxetine HCl (Prozac) 40 mg PO DAILY [facility] Last Admin: 03/16/20 07:53 Dose: 40 mg Documented by: Lisinopril (Prinivil) 20 mg PO DAILY [facility] Last Admin: 03/16/20 07:54 Dose: 20 mg Documented by: Lorazepam (Ativan) 1 mg PO DAILY PRN PRN Reason: Anxiety Metformin HCl (Glucophage) 1,000 mg PO BIDMEALS [facility] Last Admin: 03/16/20 07:54 Dose: 1,000 mg Documented by: Morphine Sulfate (Ms Contin) 30 mg PO BID [facility] Last Admin: 03/16/20 07:53 Dose: 30 mg Documented by: Multivitamins/Minerals (Thera M Plus) 1 tab PO DAILY [facility] Last Admin: 03/16/20 07:53 Dose: 1 tab Documented by: Naproxen (Naproxen Sodium) 220 mg PO DAILY PRN PRN Reason: Pain Insulin Degludec [ Tresiba] (Own Supply ) 0 unit SQ DAILY@1999 [facility] Last Admin: 03/15/20 20:39 Dose: 56 unit Documented by: Olanzapine (Zyprexa) 5 mg PO BEDTIME PRN PRN Reason: Nausea Ondansetron HCl (Zofran Odt) 8 mg PO TID PRN PRN Reason: Nausea Last Admin: 03/15/20 20:36 Dose: 8 mg Documented by: Oxybutynin Chloride (Oxybutynin Er) 5 mg PO DAILY [facility] Last Admin: 03/16/20 07:53 Dose: 5 mg Documented by: Oxycodone HCl (Oxycodone) 10 mg PO Q6H PRN PRN Reason: Pain (moderate 4-6) Last Admin: 03/15/20 16:23 Dose: 10 mg Documented by: Pharmacy Consult (Consult To Pharmacy) 1 each .XX ASDIRECTED [facility] Phytonadione (Vitamin K) 100 mcg PO DAILY [facility] Last Admin: 03/16/20 07:53 Dose: 100 mcg Documented by: Polyethylene Glycol (Miralax) 17 gm PO BID [facility] Last Admin: 03/16/20 07:52 Dose: 17 gm Documented by: Prochlorperazine Maleate (Compazine) 10 mg PO QID PRN PRN Reason: Nausea Last Admin: 03/15/20 16:22 Dose: 10 mg Documented by: Senna/Docusate Sodium (Senna Plus) 1 tab PO BID [facility] Last Admin: 03/16/20 07:54 Dose: 1 tab Documented by: Warfarin Sodium (Coumadin) 7.5 mg PO SuTuWeThSa@1999 [facility] Last Admin: 03/15/20 20:32 Dose: 7.5 mg Documented by: Warfarin Sodium (Coumadin) 3.75 mg PO MoFr@1999 [facility] Last Admin: 03/13/20 20:48 Dose: 3.75 mg Documented by: Discontinued Medications Magnesium Citrate (Citrate Of Magnesia) 296 ml PO ONETIME ONE Stop: 03/13/20 18:12 Last Admin: 03/13/20 18:40 Dose: 296 ml Documented by: Insulin Degludec [ Tresiba] Syringe Own Med 62 unit SQ DAILY@1999 [facility] Last Admin: 03/09/20 21:02 Dose: 62 unit Documented by: Polyethylene Glycol (Miralax) 17 gm PO DAILY [facility] Last Admin: 03/10/20 08:22 Dose: 17 gm Documented by: Warfarin Sodium (Coumadin) 7.5 mg PO DAILY@1999 [facility] Stop: 03/06/20 20:01 Last Admin: 03/06/20 20:34 Dose: 7.5 mg Documented by: - Exam General: Reports: Alert, Oriented, Cooperative, No Acute Distress HEENT: Reports: Mucous Membr. Moist/[place] Neck: Reports: Supple, Trachea Midline, No Thyromegaly. Denies: Lymphadenopathy Lungs: Reports: Clear to Auscultation, Normal Respiratory Effort Cardiovascular: Reports: Regular Rate, Regular Rhythm, No Murmurs GI/Abdominal Exam: Normal Bowel Sounds, Soft, Non-Tender, No Organomegaly, No Distention, No Mass Extremities: Non-Tender, No Pedal Edema, Normal Capillary Refill Skin: Reports: Warm, Dry, Intact *Q Meaningful Use (DIS) - VTE *Q VTE Anticoagulation Contraindications: Med/TX Not Indicated/Need
== END 2020-03-16 12:25 | disposition home or self-care (01) | DRG 948 ==
LOC: VM.MS 13:41
PROVIDERS: ADMIT Family Medicine; ATTEND Family Medicine
DX: R53.1 Weakness (principal); C79.51 Secondary malignant neoplasm of bone; C61 Malignant neoplasm of prostate; K59.03 Drug induced constipation; I10 Essential (primary) hypertension; E11.9 Type 2 diabetes mellitus without complications; Z66 Do not resuscitate; F32.9 Major depressive disorder, single episode, unspecified; E78.5 Hyperlipidemia, unspecified; F41.9 Anxiety disorder, unspecified; E66.9 Obesity, unspecified; E78.00 Pure hypercholesterolemia, unspecified; Z86.73 Personal history of transient ischemic attack (TIA), and cerebral infarction without residual deficits; Z86.718 Personal history of other venous thrombosis and embolism; Z79.01 Long term (current) use of anticoagulants; Z79.4 Long term (current) use of insulin; Z79.899 Other long term (current) drug therapy; Z87.891 Personal history of nicotine dependence
CPT/HCPCS: 36415; 82962; 85610; 97110-GO; 97110-GP; 97116-GP; 97161-GP; 97165-GO; 97530-GP; A9270-GY; Q0164

== ENCOUNTER 2020-03-20 09:23 | Inpatient (IN) | payer BC, MEDICAID, MEDICARE ==
[2020-03-20] MEDS ORDERED: LORazepam 1 MG Tab PO PRN (10:04)
[2020-03-20] MEDS ORDERED: OLANZapine 5 MG Tab PO PRN (10:04)
[2020-03-20] MEDS ORDERED: Acetaminophen/Diphenhydramine 500-25 MG Tab PO PRN (10:04)
--- NOTE | 2020-03-20 10:14 | PCM.HP.2 ---
H&P History of Present Illness - General Date of Service: 03/20/20 Admit Problem/Dx: Admission Diagnosis/Problem Admission Diagnosis/Problem Weakness Source of Information: Patient History Limitations: Reports: No Limitations - History of Present Illness Initial Comments - Free Text/Narative: Mr. Mina is a 65 yo male with PMH of metastatic prostate cancer, HTN, h/o TIA, HLD, diabetes, obesity, and depression who is admitted to swing bed for further cares/strengthening after things did not go well this weekend. He was discharged from a swing bed stay end of last week due to feeling that he had progressed to the point that he wanted to try seeing how it went at home. He states that this did not go well. His balance has been good and he has not fallen. That being said, he has been very weak. He states that there were times that he could not even get up off the floor and he was getting himself dressed while laying on his floor. His appetite has not been good and he has been nauseous; as a result, he has not really been eating well. He has not been vomiting. He is having regular soft bowel movements. His pain remains controlled. He has chemotherapy later this week and had planned to get admitted again after that was completed; however, based on how it went this weekend at home, he was hoping to get admitted again today. He states that his goal is to remain on swing bed for as long as it takes to get him strong enough to return home independently. - Related Data Allergies/Adverse Reactions: Allergies Allergy/AdvReac Type Severity Reaction Status Date / Time No Known Allergies Allergy Verified 11/29/19 12:39 Home Medications: Home Meds Acetaminophen [Tylenol Extra Strength] 500 - 1,000 mg PO Q4H PRN 11/03/14 [History] Acetaminophen/Diphenhydramine [Tylenol Pm Ex-Strength Caplet] 2 each PO BEDTIME PRN 11/03/14 [History] Cholecalciferol (Vitamin D3) [Vitamin D3] 2,000 unit PO DAILY 11/03/14 [History] FLUoxetine [PROzac] 40 mg PO DAILY 11/03/14 [History] Multivit,Calc,Mins/Iron/Folic [Thera-M] 1 tab PO DAILY 11/03/14 [History] Calcium Carbonate/Vitamin D3 [Os-[place] 500+D] 1 each PO BID 11/29/19 [History] LORazepam [Ativan] 1 mg PO DAILY PRN 11/29/19 [History] atorvaSTATin [Lipitor] 40 mg PO BEDTIME 11/29/19 [History] Docusate Sodium/Sennosides [Senna Plus] 1 tab PO BID PRN 03/06/20 [History] Morphine [MS Contin] 30 mg PO BID 03/06/20 [History] Naproxen Sodium [Aleve] 220 - 440 mg PO DAILY PRN 03/06/20 [History] OLANZapine [Zyprexa] 5 mg PO BEDTIME PRN 03/06/20 [History] Ondansetron [Zofran] 8 mg PO TID PRN 03/06/20 [History] Oxybutynin [Oxybutynin ER] 5 mg PO DAILY 03/06/20 [History] Phytonadione [Vitamin K] 100 mcg PO DAILY 03/06/20 [History] Prochlorperazine Maleate [Compazine] 10 mg PO QID PRN 03/06/20 [History] lisinopriL [Lisinopril] 20 mg PO DAILY 03/06/20 [History] metFORMIN [Glucophage XR] 1,000 mg PO BID 03/06/20 [History] oxyCODONE HCl [Oxycodone HCL] 10 mg PO Q6H PRN 03/06/20 [History] Insulin Degludec [Tresiba] 54 unit SQ DAILY #0 03/16/20 [Rx] Warfarin [Coumadin] 3.75 mg PO MoFr@1999 tablet 03/16/20 [Rx] Warfarin [Coumadin] 7.5 mg PO SuTuWeThSa@2000 tablet 03/16/20 [Rx] polyethylene glycoL 3350 [MiraLAX] 17 gm PO BID packet 03/16/20 [Rx] Past Medical History HEENT History: Reports: Other (See Below) Other HEENT History: presybyopia, astigmatism, disorder of refraction and accommodation, psychophysical visual disturbances. Cardiovascular History: Reports: Blood Clots/VTE/DVT, High Cholesterol, Hypertension Respiratory History: Reports: None Gastrointestinal History: Reports: None Genitourinary History: Reports: Prostate Disorder Musculoskeletal History: Reports: Other (See Below) Other Musculoskeletal History: DJD, plantar fasciitis Neurological History: Reports: CVA Psychiatric History: Reports: Anxiety, Depression Endocrine/Metabolic History: Reports: Diabetes, Type II, Obesity/BMI 30+ Oncologic (Cancer) History: Reports: Bone, Metastatic, Prostate - Past Surgical History Male Surgical History: Reports: Other (See Below) (hydrocelectomy) Neurological Surgical History: Reports: Lumbar Spine Musculoskeletal Surgical History: Reports: Knee Replacement Social & Family History - Family History Cardiac: Reports: Heart Failure Neurological: Reports: CVA - Tobacco Use Smoking Status *Q: Former Smoker - Caffeine Use Caffeine Use: Reports: None - Alcohol Use Alcohol Use History: No Alcohol Use in Last Twelve Months: No - Recreational Drug Use Recreational Drug Use: No - Living Situation & Occupation Living situation: Reports: Single, Alone 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 Denies: Fever, Chills HEENT: Reports: No Symptoms Pulmonary: Reports: No Symptoms Cardiovascular: Reports: No Symptoms Gastrointestinal: Reports: Decreased Appetite, Nausea. Denies: Abdominal Pain, Constipation, Diarrhea, Vomiting Genitourinary: Reports: No Symptoms Musculoskeletal: Reports: No Symptoms Skin: Reports: No Symptoms Psychiatric: Reports: No Symptoms Neurological: Reports: No Symptoms Exam - Exam Exam: See Below - Exam General: Alert, Cooperative HEENT: Conjunctiva Clear, Mucosa Moist & [place], Normal Nasal Septum, Posterior Pharynx Clear, Pupils Equal, Pupils Reactive Neck: Supple, Trachea Midline. No: Lymphadenopathy, Thyromegaly Lungs: Clear to Auscultation, Normal Respiratory Effort Cardiovascular: Regular Rate, Regular Rhythm, Normal S1, Normal S2 GI/Abdominal Exam: Normal Bowel Sounds, Soft, Non-Tender, No Organomegaly, No Distention, No Mass Extremities: No Pedal Edema, Normal Capillary Refill, Pedal Edema Peripheral Pulses: 2+: Radial (L), Radial (R) Skin: Warm, Dry, Intact *Q Meaningful Use (ADM) - VTE *Q VTE Anticoagulation Contraindications: Med/TX Not Indicated/Need - Problem List (1) Generalized weakness SNOMED Code(s): 20770551 ICD Code: R53.1 - WEAKNESS Status: Acute Current Visit: No (2) Prostate cancer metastatic to bone SNOMED Code(s): 916548299 ICD Code: C61 - MALIGNANT NEOPLASM OF PROSTATE; C79.51 - SECONDARY MALIGNANT NEOPLASM OF BONE Status: Chronic Current Visit: No (3) Constipation SNOMED Code(s): 97936203 ICD Code: K59.00 - CONSTIPATION, UNSPECIFIED Status: Acute Current Visit: No Qualifiers: Constipation type: drug induced constipation Qualified Code(s): K59.03 - Drug induced constipation (4) Hypertension SNOMED Code(s): 93472975 ICD Code: I10 - ESSENTIAL (PRIMARY) HYPERTENSION Status: Chronic Current Visit: No Qualifiers: Hypertension type: essential hypertension Qualified Code(s): I10 - Essential (primary) hypertension (5) Diabetes SNOMED Code(s): 23157279 ICD Code: E11.9 - TYPE 2 DIABETES MELLITUS WITHOUT COMPLICATIONS Status: Chronic Current Visit: No Qualifiers: Diabetes mellitus type: type 2 Diabetes mellitus assisted insulin use: with termite control servicer use Diabetes mellitus complication status: without complication Qualified Code(s): E11.9 - Type 2 diabetes mellitus without complications; Z79.4 - senior living (current) use of insulin (6) Hyperlipidemia SNOMED Code(s): 92977647 ICD Code: E78.5 - HYPERLIPIDEMIA, UNSPECIFIED Status: Chronic Current Visit: No Qualifiers: Hyperlipidemia type: unspecified Qualified Code(s): E78.5 - Hyperlipidemia, unspecified (7) Hx TIA/stroke w/o resid SNOMED Code(s): 505503814, 326578423, 620422364 ICD Code: Z86.73 - PRSNL HX OF TIA (TIA), AND CEREB INFRC W/O RESID DEFICITS Status: Chronic Current Visit: No (8) Depression SNOMED Code(s): 98484756 ICD Code: F32.9 - MAJOR DEPRESSIVE DISORDER, SINGLE EPISODE, UNSPECIFIED Status: Chronic Current Visit: No Qualifiers: Depression Type: unspecified Qualified Code(s): F32.9 - Major depressive disorder, single episode, unspecified Problem List Initiated/Reviewed/Updated: Yes Orders Last 24hrs: Active Orders 24 hr Category Date Time Status Admission Status [Patient Status] [ADT] Routine ADT 03/20/20 09:37 Active Notify Provider Vital Signs [RC] ASDIRECTED Care 03/20/20 10:03 Ordered Oxygen Therapy [RC] PRN Care 03/20/20 10:02 Ordered Up With Assistance [RC] ASDIRECTED Care 03/20/20 10:02 Ordered VTE/DVT Education [RC] PER UNIT ROUTINE Care 03/20/20 10:02 Ordered Vital Signs [RC] Q4H Care 03/20/20 10:02 Ordered OT Evaluation and Treatment [CONS] Routine Cons 03/20/20 10:02 Ordered PT Evaluation and Treatment [CONS] Routine Cons 03/20/20 10:02 Ordered Regular Diet [DIET] Diet 03/20/20 Lunch Ordered Acetaminophen [Tylenol Extra Strength] Med 03/20/20 10:04 Ordered 500 mg PO Q4H PRN Acetaminophen/Diphenhydramine [Tylenol PM Extra Med 03/20/20 10:04 Ordered Strength] 2 each PO BEDTIME PRN Calcium Carbonate/Vitamin D3 [Calcium Carbonate/Vitamin Med 03/20/20 20:00 Ordered D 1250 MG-200 Unit] 1 each PO BID Cholecalciferol (Vitamin D3) [Vitamin D3] Med 03/21/20 08:00 Ordered 2,000 unit PO DAILY Docusate Sodium/Sennosides [Senna Plus] Med 03/20/20 10:04 Ordered 1 tab PO BID PRN FLUoxetine [PROzac] Med 03/21/20 08:00 Ordered 40 mg PO DAILY Insulin Degludec [Tresiba] Med 03/21/20 08:00 Ordered 54 unit SQ DAILY LORazepam [Ativan] Med 03/20/20 10:04 Ordered 1 mg PO DAILY PRN Morphine [MS Contin] Med 03/20/20 20:00 Ordered 30 mg PO BID Multivit,Calc,Mins/Iron/Folic [Thera-M] Med 03/21/20 08:00 Ordered 1 tab PO DAILY Naproxen Sodium [Aleve] Med 03/20/20 10:04 Ordered 220 mg PO DAILY PRN OLANZapine [ZyPREXA] Med 03/20/20 10:04 Ordered 5 mg PO BEDTIME PRN Ondansetron Med 03/20/20 10:04 Ordered 8 mg PO TID PRN Oxybutynin [Oxybutynin ER] Med 03/21/20 08:00 Ordered 5 mg PO DAILY Phytonadione [Vitamin K] Med 03/21/20 08:00 Ordered 100 mcg PO DAILY Prochlorperazine Maleate [Compazine] Med 03/20/20 10:04 Ordered 10 mg PO QID PRN Warfarin [Coumadin] Med 03/20/20 20:00 Ordered 3.75 mg PO MoFr@1999 Warfarin [Coumadin] Med 03/21/20 20:00 Ordered 7.5 mg PO SuTuWeThSa@1999 atorvaSTATin [Lipitor] Med 03/20/20 20:00 Ordered 40 mg PO BEDTIME lisinopriL [Prinivil] Med 03/21/20 08:00 Ordered 20 mg PO DAILY metFORMIN [Glucophage XR] Med 03/20/20 20:00 Ordered 1,000 mg PO BID oxyCODONE HCl Med 03/20/20 10:04 Ordered 10 mg PO Q6H PRN polyethylene glycoL 3350 [MiraLAX] Med 03/20/20 20:00 Ordered 17 gm PO BID Anticoagulation Contraindications VTE [AST] Per Unit Oth 03/20/20 10:02 Ordered Routine Resuscitation Status Routine Resus Stat 03/20/20 10:02 Ordered Medication Orders Acetaminophen (Tylenol Extra Strength) 500 mg PO Q4H PRN PRN Reason: Pain (mild 1-3) Acetaminophen/Diphenhydramine HCl (Tylenol Pm Extra Strength) tab PO BEDTIME PRN PRN Reason: Sleep Atorvastatin Calcium (Lipitor) 40 mg PO BEDTIME KENZIE Calcium Carbonate (Calcium Carbonate/Vitamin D 1250 Mg-200 Unit) tab PO BID KENZIE Fluoxetine HCl (Prozac) 40 mg PO DAILY KENZIE Lisinopril (Prinivil) 20 mg PO DAILY KENZIE Lorazepam (Ativan) 1 mg PO DAILY PRN PRN Reason: Anxiety Morphine Sulfate (Ms Contin) 30 mg PO BID [facility] Non-Formulary Medication (Cholecalciferol (Vitamin D3) [Vitamin D3]) 2,000 unit PO DAILY KENZIE Non-Formulary Medication (Insulin Degludec [Tresiba]) 54 unit SQ DAILY KENZIE Non-Formulary Medication (Metformin [Glucophage Xr]) 1,000 mg PO BID KENZIE Non-Formulary Medication (Multivit,Calc,Mins/Iron/Folic [Thera-M]) 1 tab PO DAILY KENZIE Non-Formulary Medication (Naproxen Sodium [Aleve]) 220 mg PO DAILY PRN PRN Reason: Pain Non-Formulary Medication (Ondansetron) 8 mg PO TID PRN PRN Reason: Nausea Non-Formulary Medication (Oxycodone Hcl) 10 mg PO Q6H PRN PRN Reason: Pain (moderate 4-6) Non-Formulary Medication (Prochlorperazine Maleate [Compazine]) 10 mg PO QID PRN PRN Reason: Nausea Olanzapine (Zyprexa) 5 mg PO BEDTIME PRN PRN Reason: Nausea Oxybutynin Chloride (Oxybutynin Er) 5 mg PO DAILY [facility] Phytonadione (Vitamin K) 100 mcg PO DAILY [facility] Polyethylene Glycol (Miralax) 17 gm PO BID [facility] Senna/Docusate Sodium (Senna Plus) 1 tab PO BID PRN PRN Reason: Constipation Warfarin Sodium (Coumadin) 3.75 mg PO MoFr@1999 [facility] Warfarin Sodium (Coumadin) 7.5 mg PO SuTuWeThSa@1999 [facility] Assessment/Plan Comment:: 65 yo male admitted to swing bed for strengthening due to weakness related to deconditioning from metastatic cancer and associated chemotherapy treatments. #1 Generalized weakness #2 Metastatic prostate cancer #3 Drug induced constipation - PT/OT consults. - Patient has follow-up scheduled with oncology this week. Depending on his lab results then, they will be discussing continuing chemotherapy vs pursuing more palliative care. - Continue current anti-emetics and current pain regimen. - Continue current bowel regimen as this seems to be working well. #4 Hypertension #5 Diabetes #6 Hyperlipidemia #7 s/p TIA #8 Depression - Insulin dose decreased during last hospitalization. - Will continue home medications as ordered upon hospital discharge. - Will check glucoses fasting once/day. - INR checked today. Warfarin to be managed per anticoagulation clinic. Patient will be admitted to swing bed and will remain on swing bed as long as progression with therapy goals is demonstrated, perhaps indefinitely if a palliative care approach is taken. Code status is DNR/DNI - discussed with patient on admission. No indication for VTE prophylaxis as he is on warfarin.
[2020-03-20] MEDS ORDERED: [UNRECOGNIZED DRUG - REMARK] PRN (10:54)
[2020-03-20] MEDS: Ondansetron 4 MG Tab.DIS PO PRN (15:05)
[2020-03-20] MEDS: metFORMIN 500 MG Tab PO SCH (18:06)
[2020-03-20] MEDS: Calcium Carbonate/Vitamin D3 1250 MG-200 Unit Tab PO SCH (20:26)
[2020-03-20] MEDS: Morphine 30 MG Tab.ER PO SCH (20:26)
[2020-03-20] MEDS: Polyethylene Glycol 3350 Powder 17 GM Packet PO SCH (20:26)
[2020-03-20] MEDS: atorvaSTATin 40 MG Tab PO SCH (20:26)
[2020-03-20] MEDS: Warfarin 2.5 MG Tab PO SCH (20:27)
[2020-03-20] MEDS: Prochlorperazine 5 MG Tab PO PRN (20:40)
[2020-03-21] MEDS: Ondansetron 4 MG Tab.DIS PO PRN ×2 (05:27→16:01)
[2020-03-21] MEDS: FLUoxetine 20 MG Cap PO SCH (08:06)
[2020-03-21] MEDS: Oxybutynin 5 MG Tab.ER PO SCH (08:06)
[2020-03-21] MEDS: Morphine 30 MG Tab.ER PO SCH ×2 (08:06→20:18)
[2020-03-21] MEDS: Prochlorperazine 5 MG Tab PO PRN ×2 (08:06→20:27)
[2020-03-21] MEDS: Calcium Carbonate/Vitamin D3 1250 MG-200 Unit Tab PO SCH ×2 (08:06→20:17)
[2020-03-21] MEDS: Phytonadione 100 MCG Tab PO SCH (08:06)
[2020-03-21] MEDS: Cholecalciferol (Vitamin D3) 25 MCG Tab PO SCH (08:06)
[2020-03-21] MEDS: metFORMIN 500 MG Tab PO SCH ×2 (08:06→18:01)
[2020-03-21] MEDS: Multivitamins with Iron/Calcium/Folic Acid/Minerals Tab PO SCH (08:06)
[2020-03-21] MEDS: Lisinopril 20 MG Tab PO SCH (08:07)
[2020-03-21] MEDS: Polyethylene Glycol 3350 Powder 17 GM Packet PO SCH ×2 (08:07→20:21)
[2020-03-21] MEDS: oxyCODONE 5 MG Tab PO PRN (16:01)
[2020-03-21] MEDS: Warfarin 2.5 MG Tab PO SCH (20:16)
[2020-03-21] MEDS: atorvaSTATin 40 MG Tab PO SCH (20:17)
[2020-03-22] MEDS: Ondansetron 4 MG Tab.DIS PO PRN (06:15)
[2020-03-22] MEDS: oxyCODONE 5 MG Tab PO PRN ×2 (06:16→13:30)
[2020-03-22] MEDS: Polyethylene Glycol 3350 Powder 17 GM Packet PO SCH ×2 (08:38→19:49)
[2020-03-22] MEDS: Oxybutynin 5 MG Tab.ER PO SCH (08:38)
[2020-03-22] MEDS: FLUoxetine 20 MG Cap PO SCH (08:38)
[2020-03-22] MEDS: Morphine 30 MG Tab.ER PO SCH ×2 (08:39→19:50)
[2020-03-22] MEDS: Multivitamins with Iron/Calcium/Folic Acid/Minerals Tab PO SCH (08:39)
[2020-03-22] MEDS: Lisinopril 20 MG Tab PO SCH (08:39)
[2020-03-22] MEDS: metFORMIN 500 MG Tab PO SCH ×2 (08:39→18:13)
[2020-03-22] MEDS: Calcium Carbonate/Vitamin D3 1250 MG-200 Unit Tab PO SCH ×2 (08:39→19:50)
[2020-03-22] MEDS: Phytonadione 100 MCG Tab PO SCH (08:39)
[2020-03-22] MEDS: Cholecalciferol (Vitamin D3) 25 MCG Tab PO SCH (08:39)
[2020-03-22] MEDS: Prochlorperazine 5 MG Tab PO PRN (18:13)
[2020-03-22] MEDS: atorvaSTATin 40 MG Tab PO SCH (19:52)
[2020-03-22] MEDS: Warfarin 2.5 MG Tab PO SCH (20:13)
[2020-03-23] MEDS: Ondansetron 4 MG Tab.DIS PO PRN (05:30)
[2020-03-23] MEDS: Acetaminophen 500 MG Tab PO PRN (05:30)
[2020-03-23] MEDS: Phytonadione 100 MCG Tab PO SCH (08:16)
[2020-03-23] MEDS: Calcium Carbonate/Vitamin D3 1250 MG-200 Unit Tab PO SCH ×2 (08:16→19:53)
[2020-03-23] MEDS: Cholecalciferol (Vitamin D3) 25 MCG Tab PO SCH (08:16)
[2020-03-23] MEDS: Polyethylene Glycol 3350 Powder 17 GM Packet PO SCH ×2 (08:16→19:53)
[2020-03-23] MEDS: Lisinopril 20 MG Tab PO SCH (08:16)
[2020-03-23] MEDS: Morphine 30 MG Tab.ER PO SCH ×2 (08:16→19:54)
[2020-03-23] MEDS: FLUoxetine 20 MG Cap PO SCH (08:17)
[2020-03-23] MEDS: metFORMIN 500 MG Tab PO SCH ×2 (08:17→18:46)
[2020-03-23] MEDS: Oxybutynin 5 MG Tab.ER PO SCH (08:17)
[2020-03-23] MEDS: Multivitamins with Iron/Calcium/Folic Acid/Minerals Tab PO SCH (08:17)
[2020-03-23] MEDS: Prochlorperazine 5 MG Tab PO PRN (09:44)
[2020-03-23] MEDS: oxyCODONE 5 MG Tab PO PRN (09:45)
--- NOTE | 2020-03-23 18:29 | PCM.SN.2 ---
- Free Text/Narrative Note: S: Patient seen on return from [facility]. Did not get his chemo today due to weakness and hypotension. Notably, he was 1 hour early for his appointment and had to sit in the wheelchair for an extended period of time. This resulted in increased pain for which he received dilaudid. He then became hypotensive and was given IV fluids. He improved and returned to swing bed in stable condition. He will be following up with his oncologist next week. The patient states that his pain is now minimal. He has been doing fine ot herwise since admission back to swing bed and denies any vomiting or diarrhea. He is still slightly lightheaded but notes this is much better than earlier today. O: Vitals reviewed. Patient is resting comfortably in bed in no acute distress. Is answering questions appropriately. Heart RRR with normal S1 and S2. No murmurs. Lungs CTAB. Abdomen soft, nontender, nondistended. A/P: #1 Hypotension - BP still low here but patient is not tachycardic. - Suspect this is related to pain medication. - Will monitor for now and give additional IV fluids if not coming up by ~6 pm this evening. #2 Generalized Weakness - Encouraged him to work with therapies and he agrees to work on this. Will plan for swing bed admission at least through oncology appointment next week. Next steps after that. Patient in agreement.
[2020-03-23] MEDS: Warfarin 2.5 MG Tab PO SCH (19:52)
[2020-03-23] MEDS: atorvaSTATin 40 MG Tab PO SCH (19:52)
[2020-03-23] MEDS: INSULIN DEGLUDEC SQ SCH (19:55)
[2020-03-24] MEDS: Ondansetron 4 MG Tab.DIS PO PRN ×2 (05:39→19:39)
[2020-03-24] MEDS: oxyCODONE 5 MG Tab PO PRN (05:39)
[2020-03-24] MEDS: FLUoxetine 20 MG Cap PO SCH (08:41)
[2020-03-24] MEDS: Polyethylene Glycol 3350 Powder 17 GM Packet PO SCH ×2 (08:41→19:38)
[2020-03-24] MEDS: metFORMIN 500 MG Tab PO SCH ×2 (08:41→19:07)
[2020-03-24] MEDS: Lisinopril 20 MG Tab PO SCH (08:42)
[2020-03-24] MEDS: Phytonadione 100 MCG Tab PO SCH (08:42)
[2020-03-24] MEDS: Prochlorperazine 5 MG Tab PO PRN (08:42)
[2020-03-24] MEDS: Multivitamins with Iron/Calcium/Folic Acid/Minerals Tab PO SCH (08:42)
[2020-03-24] MEDS: Morphine 30 MG Tab.ER PO SCH ×2 (08:42→19:38)
[2020-03-24] MEDS: Calcium Carbonate/Vitamin D3 1250 MG-200 Unit Tab PO SCH ×2 (08:42→19:38)
[2020-03-24] MEDS: Oxybutynin 5 MG Tab.ER PO SCH (08:42)
[2020-03-24] MEDS: Cholecalciferol (Vitamin D3) 25 MCG Tab PO SCH (08:42)
[2020-03-24] MEDS ORDERED: Magnesium Hydroxide 400 MG/5 ML Susp 30 ML Cup PO PRN (17:56)
[2020-03-24] MEDS: atorvaSTATin 40 MG Tab PO SCH (19:38)
[2020-03-24] MEDS: Warfarin 2.5 MG Tab PO SCH (19:41)
[2020-03-24] MEDS: INSULIN DEGLUDEC SQ SCH (19:41)
[2020-03-25] MEDS: Ondansetron 4 MG Tab.DIS PO PRN ×2 (02:12→17:25)
[2020-03-25] MEDS: Prochlorperazine 5 MG Tab PO PRN ×2 (06:20→20:14)
[2020-03-25] MEDS: metFORMIN 500 MG Tab PO SCH ×2 (08:07→17:26)
[2020-03-25] MEDS: Calcium Carbonate/Vitamin D3 1250 MG-200 Unit Tab PO SCH ×2 (08:08→20:14)
[2020-03-25] MEDS: FLUoxetine 20 MG Cap PO SCH (08:08)
[2020-03-25] MEDS: Morphine 30 MG Tab.ER PO SCH ×2 (08:08→20:14)
[2020-03-25] MEDS: Cholecalciferol (Vitamin D3) 25 MCG Tab PO SCH (08:09)
[2020-03-25] MEDS: Oxybutynin 5 MG Tab.ER PO SCH (08:09)
[2020-03-25] MEDS: Phytonadione 100 MCG Tab PO SCH (08:10)
[2020-03-25] MEDS: Multivitamins with Iron/Calcium/Folic Acid/Minerals Tab PO SCH (08:10)
[2020-03-25] MEDS: Lisinopril 20 MG Tab PO SCH (08:11)
[2020-03-25] MEDS: Polyethylene Glycol 3350 Powder 17 GM Packet PO SCH ×2 (08:12→21:03)
[2020-03-25] MEDS: Acetaminophen 500 MG Tab PO PRN (17:26)
[2020-03-25] MEDS: atorvaSTATin 40 MG Tab PO SCH (20:14)
[2020-03-25] MEDS: Warfarin 2.5 MG Tab PO SCH (20:15)
[2020-03-25] MEDS: INSULIN DEGLUDEC SQ SCH (20:17)
[2020-03-26] MEDS: Phytonadione 100 MCG Tab PO SCH (07:56)
[2020-03-26] MEDS: metFORMIN 500 MG Tab PO SCH ×2 (07:56→17:50)
[2020-03-26] MEDS: Cholecalciferol (Vitamin D3) 25 MCG Tab PO SCH (07:58)
[2020-03-26] MEDS: FLUoxetine 20 MG Cap PO SCH (07:58)
[2020-03-26] MEDS: Morphine 30 MG Tab.ER PO SCH ×2 (07:59→19:50)
[2020-03-26] MEDS: Calcium Carbonate/Vitamin D3 1250 MG-200 Unit Tab PO SCH ×2 (08:00→19:49)
[2020-03-26] MEDS: Oxybutynin 5 MG Tab.ER PO SCH (08:00)
[2020-03-26] MEDS: Multivitamins with Iron/Calcium/Folic Acid/Minerals Tab PO SCH (08:00)
[2020-03-26] MEDS: Lisinopril 20 MG Tab PO SCH (08:00)
[2020-03-26] MEDS: Ondansetron 4 MG Tab.DIS PO PRN ×2 (08:01→16:57)
[2020-03-26] MEDS: Polyethylene Glycol 3350 Powder 17 GM Packet PO SCH ×2 (08:01→22:49)
[2020-03-26] MEDS: oxyCODONE 5 MG Tab PO PRN (16:57)
[2020-03-26] MEDS: atorvaSTATin 40 MG Tab PO SCH (19:49)
[2020-03-26] MEDS: Warfarin 2.5 MG Tab PO SCH (19:49)
[2020-03-26] MEDS: Prochlorperazine 5 MG Tab PO PRN (19:49)
[2020-03-26] MEDS: INSULIN DEGLUDEC SQ SCH (19:53)
[2020-03-27] MEDS: Acetaminophen 500 MG Tab PO PRN (06:05)
[2020-03-27] MEDS: Ondansetron 4 MG Tab.DIS PO PRN ×2 (06:05→21:41)
[2020-03-27] MEDS: FLUoxetine 20 MG Cap PO SCH (08:29)
[2020-03-27] MEDS: Prochlorperazine 5 MG Tab PO PRN ×2 (08:32→21:44)
[2020-03-27] MEDS: metFORMIN 500 MG Tab PO SCH ×2 (08:32→17:33)
[2020-03-27] MEDS: Multivitamins with Iron/Calcium/Folic Acid/Minerals Tab PO SCH (08:33)
[2020-03-27] MEDS: Phytonadione 100 MCG Tab PO SCH (08:33)
[2020-03-27] MEDS: Morphine 30 MG Tab.ER PO SCH ×2 (08:33→21:42)
[2020-03-27] MEDS: Oxybutynin 5 MG Tab.ER PO SCH (08:33)
[2020-03-27] MEDS: Lisinopril 20 MG Tab PO SCH (08:33)
[2020-03-27] MEDS: Cholecalciferol (Vitamin D3) 25 MCG Tab PO SCH (08:33)
[2020-03-27] MEDS: Calcium Carbonate/Vitamin D3 1250 MG-200 Unit Tab PO SCH ×2 (08:34→21:44)
[2020-03-27] MEDS: Polyethylene Glycol 3350 Powder 17 GM Packet PO SCH (08:35)
--- NOTE | 2020-03-27 18:05 | PCM.PN ---
- General Info Date of Service: 03/27/20 Subjective Update: Patient seen today for swing bed follow-up. States he is weak and tired but otherwise doing well. Nausea and pain remain well controlled. He does state that his bowels are now quite loose and he does not feel he needs the stool softeners at this point. He will see his oncologist later this week. No other concerns. - Review of Systems General: Reports: No Symptoms HEENT: Reports: No Symptoms Pulmonary: Reports: No Symptoms Cardiovascular: Reports: No Symptoms Gastrointestinal: Reports: No Symptoms Genitourinary: Reports: No Symptoms Musculoskeletal: Reports: No Symptoms Skin: Reports: No Symptoms Neurological: Reports: No Symptoms Psychiatric: Reports: No Symptoms - Patient Data Vitals - Most Recent: Last Vital Signs Temp 36.5 C 03/27/20 05:46 Pulse 100 03/27/20 05:46 Resp 19 03/27/20 05:46 BP 130/70 03/27/20 08:33 Pulse Ox 97 03/27/20 05:46 Weight - Most Recent: 122.651 kg I&O - Last 24 Hours: Intake & Output 03/27/20 03/27/20 03/27/20 06:59 14:59 22:59 Intake Total 600 Balance 600 Lab Results Last 24 Hours: Laboratory Results - last 24 hr 03/26/20 03/27/20 03/27/20 Range/Units 19:53 06:01 08:29 POC Glucose 182 H 67 L 122 H (74-106) mg/dL 03/27/20 03/27/20 Range/Units 11:46 17:31 POC Glucose 106 88 (74-106) mg/dL Med Orders - Current: Current Medications Acetaminophen (Tylenol Extra Strength) 500 mg PO Q4H PRN PRN Reason: Pain (mild 1-3) Last Admin: 03/27/20 06:05 Dose: 500 mg Documented by: Acetaminophen/Diphenhydramine HCl (Tylenol Pm Extra Strength) 2 tab PO BEDTIME PRN PRN Reason: Sleep Atorvastatin Calcium (Lipitor) 40 mg PO BEDTIME [facility] Last Admin: 03/26/20 19:49 Dose: 40 mg Documented by: Calcium Carbonate (Calcium Carbonate/Vitamin D 1250 Mg-200 Unit) 1 tab PO BID KENZIE Last Admin: 03/27/20 08:34 Dose: 1 tab Documented by: Cholecalciferol (Vitamin D3) 50 mcg PO DAILY [facility] Last Admin: 03/27/20 08:33 Dose: 50 mcg Documented by: Fluoxetine HCl (Prozac) 40 mg PO DAILY [facility] Last Admin: 03/27/20 08:29 Dose: 40 mg Documented by: Lisinopril (Prinivil) 20 mg PO DAILY [facility] Last Admin: 03/27/20 08:33 Dose: 20 mg Documented by: Lorazepam (Ativan) 1 mg PO DAILY PRN PRN Reason: Anxiety Magnesium Hydroxide (Milk Of Magnesia) 30 ml PO BID PRN PRN Reason: Constipation Metformin HCl (Glucophage) 1,000 mg PO BIDMEALS [facility] Last Admin: 03/27/20 17:33 Dose: 1,000 mg Documented by: Morphine Sulfate (Ms Contin) 30 mg PO BID [facility] Last Admin: 03/27/20 08:33 Dose: 30 mg Documented by: Multivitamins/Minerals (Thera M Plus) 1 tab PO DAILY [facility] Last Admin: 03/27/20 08:33 Dose: 1 tab Documented by: Naproxen (Naproxen Sodium) 220 mg PO DAILY PRN PRN Reason: Pain Non-Formulary Medication (Insulin Degludec [Tresiba]) 0 unit SQ BEDTIME [facility] Last Admin: 03/26/20 19:53 Dose: 50 unit Documented by: Spencer Young (Monitor Inrs) 1 each .XX ASDIRECTED PRN PRN Reason: Keep Vein Open Olanzapine (Zyprexa) 5 mg PO BEDTIME PRN PRN Reason: Nausea Ondansetron HCl (Zofran Odt) 8 mg PO TID PRN PRN Reason: Nausea Last Admin: 03/27/20 06:05 Dose: 8 mg Documented by: Oxybutynin Chloride (Oxybutynin Er) 5 mg PO DAILY [facility] Last Admin: 03/27/20 08:33 Dose: 5 mg Documented by: Oxycodone HCl (Oxycodone) 10 mg PO Q6H PRN PRN Reason: Pain (moderate 4-6) Last Admin: 03/26/20 16:57 Dose: 10 mg Documented by: Phytonadione (Vitamin K) 100 mcg PO DAILY [facility] Last Admin: 03/27/20 08:33 Dose: 100 mcg Documented by: Polyethylene Glycol (Miralax) 17 gm PO BID [facility] Last Admin: 03/27/20 08:35 Dose: Not Given Documented by: Prochlorperazine Maleate (Compazine) 10 mg PO QID PRN PRN Reason: Nausea Last Admin: 03/27/20 08:32 Dose: 10 mg Documented by: Senna/Docusate Sodium (Senna Plus) 1 tab PO BID PRN PRN Reason: Constipation Last Admin: 03/24/20 08:41 Dose: 1 tab Documented by: Warfarin Sodium (Coumadin) 3.75 mg PO MoFr@1999 [facility] Last Admin: 03/24/20 19:41 Dose: 3.75 mg Documented by: Warfarin Sodium (Coumadin) 7.5 mg PO SuTuWeThSa@1999 [facility] Last Admin: 03/26/20 19:49 Dose: 7.5 mg Documented by: Discontinued Medications Insulin Degludec [ Tresiba] (Own Supply ) 0 unit SQ BEDTIME [facility] Last Admin: 03/22/20 19:54 Dose: 54 unit Documented by: - Exam General: Alert, Oriented, Cooperative, No Acute Distress HEENT: Mucous Membr. Moist/[place] Neck: Supple, Trachea Midline, No Thyromegaly. No: Lymphadenopathy Lungs: Clear to Auscultation, Normal Respiratory Effort Cardiovascular: Regular Rate, Regular Rhythm, No Murmurs GI/Abdominal Exam: Normal Bowel Sounds, Soft, Non-Tender, No Organomegaly, No Distention, No Mass Extremities: Non-Tender, No Pedal Edema, Normal Capillary Refill Peripheral Pulses: 2+: Radial (L), Radial (R) Skin: Warm, Dry, Intact Sepsis Event Note - Evaluation Sepsis Screening Result: No Definite Risk - Focused Exam Vital Signs: Vital Signs BP 03/27/20 08:33 130/70 - Problem List & Annotations (1) Generalized weakness SNOMED Code(s): 68934242 Code(s): R53.1 - WEAKNESS Status: Acute Current Visit: No (2) Prostate cancer metastatic to bone SNOMED Code(s): 208528766 Code(s): C61 - MALIGNANT NEOPLASM OF PROSTATE; C79.51 - SECONDARY MALIGNANT NEOPLASM OF BONE Status: Chronic Current Visit: No (3) Constipation SNOMED Code(s): 54788937 Code(s): K59.00 - CONSTIPATION, UNSPECIFIED Status: Acute Current Visit: No Qualifiers: Constipation type: drug induced constipation Qualified Code(s): K59.03 - Drug induced constipation (4) Hypertension SNOMED Code(s): 10948941 Code(s): I10 - ESSENTIAL (PRIMARY) HYPERTENSION Status: Chronic Current Visit: No Qualifiers: Hypertension type: essential hypertension Qualified Code(s): I10 - Es sential (primary) hypertension (5) Diabetes SNOMED Code(s): 37781333 Code(s): E11.9 - TYPE 2 DIABETES MELLITUS WITHOUT COMPLICATIONS Status: Chronic Current Visit: No Qualifiers: Diabetes mellitus type: type 2 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 mellitus 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: with snf use Diabetes mellitus complication status: without complication Qualified Code(s): E11.9 - Type 2 diabetes mellitus without complications; Z79.4 - 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) use of insulin (6) Hyperlipidemia SNOMED Code(s): 41851090 Code(s): E78.5 - HYPERLIPIDEMIA, UNSPECIFIED Status: Chronic Current Visit: No Qualifiers: Hyperlipidemia type: unspecified Qualified Code(s): E78.5 - Hyperlipidemia, unspecified (7) Hx TIA/stroke w/o resid SNOMED Code(s): 190732348, 120428123, 849325375 Code(s): Z86.73 - PRSNL HX OF TIA (TIA), AND CEREB INFRC W/O RESID DEFICITS Status: Chronic Current Visit: No (8) Depression SNOMED Code(s): 57419242 Code(s): F32.9 - MAJOR DEPRESSIVE DISORDER, SINGLE EPISODE, UNSPECIFIED St atus: Chronic Current Visit: No Qualifiers: Depression Type: unspecified Qualified Code(s): F32.9 - Major depressive disorder, single episode, unspecified - Problem List Review Problem List Initiated/Reviewed/Updated: Yes - My Orders Last 24 Hours: My Active Orders 03/30/20 05:11 CBC WITH AUTO DIFF [HEME] Routine CMP [COMPREHENSIVE METABOLIC PN,CMP] [CHEM] Routine PSA TOTAL%EE [REF] Routine 04/23/20 05:11 CBC WITH AUTO DIFF [HEME] Routine CMP [COMPREHENSIVE METABOLIC PN,CMP] [CHEM] Routine PSA TOTAL%EE [REF] Routine - Assessment Assessment:: 65 yo male admitted to swing bed for symptom control and strengthening related to weakness secondary to his metastatic cancer and related treatments. - Plan Plan:: #1 Generalized weakness #2 Metastatic prostate cancer #3 Drug induced constipation - PT/OT following. - Patient has follow-up scheduled with oncology later this week. Next steps to be determined based on labs/assessment at that time. - Continue current anti-emetics and current pain regimen. - Will change bowel regimen to PRN since he feels this is overly controlled at this point. #4 Hypertension #5 Diabetes #6 Hyperlipidemia #7 s/p TIA #8 Depression - Glucoses have been acceptable. - Continue home medications. - Will check glucoses fasting once/day. - Warfarin to be managed per anticoagulation clinic. Patient will be admitted to swing bed and will remain on swing bed as long as progression with therapy goals is demonstrated, perhaps indefinitely if a palliative care approach is taken. Code status is DNR/DNI - discussed with patient on admission. No indication for VTE prophylaxis as he is on warfarin.
[2020-03-27] MEDS: atorvaSTATin 40 MG Tab PO SCH (21:47)
[2020-03-27] MEDS: INSULIN DEGLUDEC SQ SCH (21:47)
[2020-03-27] MEDS ORDERED: Warfarin 2.5 MG Tab PO SCH (22:00)
[2020-03-28] MEDS: Warfarin 2.5 MG Tab PO SCH ×2 (01:23→20:03)
[2020-03-28] MEDS: oxyCODONE 5 MG Tab PO PRN ×2 (05:36→17:27)
[2020-03-28] MEDS: Ondansetron 4 MG Tab.DIS PO PRN (05:37)
[2020-03-28] MEDS: Prochlorperazine 5 MG Tab PO PRN ×2 (08:36→17:27)
[2020-03-28] MEDS: Phytonadione 100 MCG Tab PO SCH (08:36)
[2020-03-28] MEDS: Morphine 30 MG Tab.ER PO SCH ×2 (08:36→19:58)
[2020-03-28] MEDS: Multivitamins with Iron/Calcium/Folic Acid/Minerals Tab PO SCH (08:37)
[2020-03-28] MEDS: Calcium Carbonate/Vitamin D3 1250 MG-200 Unit Tab PO SCH ×2 (08:37→20:00)
[2020-03-28] MEDS: metFORMIN 500 MG Tab PO SCH ×2 (08:37→17:28)
[2020-03-28] MEDS: Lisinopril 20 MG Tab PO SCH (08:37)
[2020-03-28] MEDS: FLUoxetine 20 MG Cap PO SCH (08:37)
[2020-03-28] MEDS: Cholecalciferol (Vitamin D3) 25 MCG Tab PO SCH (08:37)
[2020-03-28] MEDS: Oxybutynin 5 MG Tab.ER PO SCH (08:37)
[2020-03-28] MEDS: Acetaminophen 500 MG Tab PO PRN (17:27)
[2020-03-28] MEDS: INSULIN DEGLUDEC SQ SCH (19:57)
[2020-03-28] MEDS: atorvaSTATin 40 MG Tab PO SCH (19:59)
[2020-03-29] MEDS: Ondansetron 4 MG Tab.DIS PO PRN (05:12)
[2020-03-29] MEDS: FLUoxetine 20 MG Cap PO SCH (08:54)
[2020-03-29] MEDS: Phytonadione 100 MCG Tab PO SCH (08:55)
[2020-03-29] MEDS: Acetaminophen 500 MG Tab PO PRN ×2 (08:55→18:12)
[2020-03-29] MEDS: metFORMIN 500 MG Tab PO SCH ×2 (08:55→18:12)
[2020-03-29] MEDS: Prochlorperazine 5 MG Tab PO PRN ×2 (08:55→18:11)
[2020-03-29] MEDS: Multivitamins with Iron/Calcium/Folic Acid/Minerals Tab PO SCH (08:55)
[2020-03-29] MEDS: Morphine 30 MG Tab.ER PO SCH ×2 (08:55→20:04)
[2020-03-29] MEDS: Calcium Carbonate/Vitamin D3 1250 MG-200 Unit Tab PO SCH ×2 (08:55→20:06)
[2020-03-29] MEDS: Oxybutynin 5 MG Tab.ER PO SCH (08:55)
[2020-03-29] MEDS: Cholecalciferol (Vitamin D3) 25 MCG Tab PO SCH (08:55)
[2020-03-29] MEDS: Lisinopril 20 MG Tab PO SCH (08:56)
[2020-03-29] MEDS: oxyCODONE 5 MG Tab PO PRN (18:11)
[2020-03-29] MEDS: atorvaSTATin 40 MG Tab PO SCH (20:06)
[2020-03-29] MEDS: Warfarin 2.5 MG Tab PO SCH (20:06)
[2020-03-29] MEDS: INSULIN DEGLUDEC SQ SCH (20:08)
[2020-03-30] MEDS: Ondansetron 4 MG Tab.DIS PO PRN ×2 (06:15→19:51)
[2020-03-30] MEDS: oxyCODONE 5 MG Tab PO PRN (06:16)
[2020-03-30] MEDS: Lisinopril 20 MG Tab PO SCH (07:53)
[2020-03-30] MEDS: Phytonadione 100 MCG Tab PO SCH (07:53)
[2020-03-30] MEDS: Oxybutynin 5 MG Tab.ER PO SCH (07:53)
[2020-03-30] MEDS: Morphine 30 MG Tab.ER PO SCH ×2 (07:53→19:54)
[2020-03-30] MEDS: FLUoxetine 20 MG Cap PO SCH (07:53)
[2020-03-30] MEDS: Calcium Carbonate/Vitamin D3 1250 MG-200 Unit Tab PO SCH ×2 (07:53→19:53)
[2020-03-30] MEDS: Cholecalciferol (Vitamin D3) 25 MCG Tab PO SCH (07:53)
[2020-03-30] MEDS: metFORMIN 500 MG Tab PO SCH ×2 (07:53→19:56)
[2020-03-30] MEDS: Multivitamins with Iron/Calcium/Folic Acid/Minerals Tab PO SCH (07:53)
[2020-03-30] MEDS: Warfarin 2.5 MG Tab PO SCH (19:52)
[2020-03-30] MEDS: atorvaSTATin 40 MG Tab PO SCH (19:53)
[2020-03-30] MEDS: INSULIN DEGLUDEC SQ SCH (19:55)
[2020-03-31] MEDS: Ondansetron 4 MG Tab.DIS PO PRN ×2 (06:10→17:37)
[2020-03-31] MEDS: oxyCODONE 5 MG Tab PO PRN (06:10)
[2020-03-31] MEDS: Morphine 30 MG Tab.ER PO SCH ×2 (08:20→20:03)
[2020-03-31] MEDS: FLUoxetine 20 MG Cap PO SCH (08:20)
[2020-03-31] MEDS: Cholecalciferol (Vitamin D3) 25 MCG Tab PO SCH (08:21)
[2020-03-31] MEDS: metFORMIN 500 MG Tab PO SCH ×2 (08:21→17:36)
[2020-03-31] MEDS: Calcium Carbonate/Vitamin D3 1250 MG-200 Unit Tab PO SCH ×2 (08:21→20:02)
[2020-03-31] MEDS: Oxybutynin 5 MG Tab.ER PO SCH (08:21)
[2020-03-31] MEDS: Multivitamins with Iron/Calcium/Folic Acid/Minerals Tab PO SCH (08:21)
[2020-03-31] MEDS: Lisinopril 20 MG Tab PO SCH (08:22)
[2020-03-31] MEDS: Phytonadione 100 MCG Tab PO SCH (08:24)
[2020-03-31] MEDS: atorvaSTATin 40 MG Tab PO SCH (20:02)
[2020-03-31] MEDS: Warfarin 2.5 MG Tab PO SCH (20:02)
[2020-03-31] MEDS: Prochlorperazine 5 MG Tab PO PRN (20:03)
[2020-03-31] MEDS: INSULIN DEGLUDEC SQ SCH (20:04)
[2020-04-01] MEDS: Ondansetron 4 MG Tab.DIS PO PRN (05:50)
[2020-04-01] MEDS: Acetaminophen 500 MG Tab PO PRN (05:50)
[2020-04-01] MEDS: Multivitamins with Iron/Calcium/Folic Acid/Minerals Tab PO SCH (07:45)
[2020-04-01] MEDS: Phytonadione 100 MCG Tab PO SCH (07:45)
[2020-04-01] MEDS: Oxybutynin 5 MG Tab.ER PO SCH (07:46)
[2020-04-01] MEDS: FLUoxetine 20 MG Cap PO SCH (07:46)
[2020-04-01] MEDS: Lisinopril 20 MG Tab PO SCH (07:46)
[2020-04-01] MEDS: Calcium Carbonate/Vitamin D3 1250 MG-200 Unit Tab PO SCH ×2 (07:46→19:41)
[2020-04-01] MEDS: Morphine 30 MG Tab.ER PO SCH ×2 (07:46→19:41)
[2020-04-01] MEDS: metFORMIN 500 MG Tab PO SCH ×2 (07:46→17:43)
[2020-04-01] MEDS: Cholecalciferol (Vitamin D3) 25 MCG Tab PO SCH (07:46)
[2020-04-01] MEDS: atorvaSTATin 40 MG Tab PO SCH (19:41)
[2020-04-01] MEDS: Warfarin 2.5 MG Tab PO SCH (19:41)
[2020-04-01] MEDS: Prochlorperazine 5 MG Tab PO PRN (19:42)
[2020-04-01] MEDS: INSULIN DEGLUDEC SQ SCH (20:34)
[2020-04-02] MEDS: Acetaminophen 500 MG Tab PO PRN (00:38)
[2020-04-02] MEDS: Ondansetron 4 MG Tab.DIS PO PRN ×2 (00:40→17:50)
[2020-04-02] MEDS: metFORMIN 500 MG Tab PO SCH ×2 (08:05→17:43)
[2020-04-02] MEDS: FLUoxetine 20 MG Cap PO SCH (08:05)
[2020-04-02] MEDS: Multivitamins with Iron/Calcium/Folic Acid/Minerals Tab PO SCH (08:06)
[2020-04-02] MEDS: Morphine 30 MG Tab.ER PO SCH ×2 (08:06→19:52)
[2020-04-02] MEDS: Lisinopril 20 MG Tab PO SCH (08:06)
[2020-04-02] MEDS: Oxybutynin 5 MG Tab.ER PO SCH (08:06)
[2020-04-02] MEDS: Phytonadione 100 MCG Tab PO SCH (08:07)
[2020-04-02] MEDS: Cholecalciferol (Vitamin D3) 25 MCG Tab PO SCH (08:07)
[2020-04-02] MEDS: Calcium Carbonate/Vitamin D3 1250 MG-200 Unit Tab PO SCH ×2 (08:07→19:54)
[2020-04-02] MEDS: Prochlorperazine 5 MG Tab PO PRN (19:53)
[2020-04-02] MEDS: atorvaSTATin 40 MG Tab PO SCH (19:54)
[2020-04-02] MEDS: Warfarin 2.5 MG Tab PO SCH (19:54)
[2020-04-02] MEDS: INSULIN DEGLUDEC SQ SCH (22:09)
[2020-04-02] MEDS: TRESIBA SQ SCH (22:09)
[2020-04-03] MEDS: metFORMIN 500 MG Tab PO SCH ×2 (07:56→18:46)
[2020-04-03] MEDS: Oxybutynin 5 MG Tab.ER PO SCH (07:56)
[2020-04-03] MEDS: Ondansetron 4 MG Tab.DIS PO PRN ×2 (07:57→20:46)
[2020-04-03] MEDS: Cholecalciferol (Vitamin D3) 25 MCG Tab PO SCH (07:57)
[2020-04-03] MEDS: FLUoxetine 20 MG Cap PO SCH (07:57)
[2020-04-03] MEDS: Phytonadione 100 MCG Tab PO SCH (07:58)
[2020-04-03] MEDS: Morphine 30 MG Tab.ER PO SCH ×2 (07:58→20:46)
[2020-04-03] MEDS: Calcium Carbonate/Vitamin D3 1250 MG-200 Unit Tab PO SCH ×2 (07:58→20:46)
[2020-04-03] MEDS: Multivitamins with Iron/Calcium/Folic Acid/Minerals Tab PO SCH (07:58)
[2020-04-03] MEDS: Lisinopril 20 MG Tab PO SCH (08:16)
[2020-04-03] MEDS: Prochlorperazine 5 MG Tab PO PRN (14:20)
[2020-04-03] MEDS: Acetaminophen 500 MG Tab PO PRN (14:20)
[2020-04-03] MEDS ORDERED: Warfarin 2.5 MG Tab PO SCH (20:00)
[2020-04-03] MEDS: atorvaSTATin 40 MG Tab PO SCH (20:46)
[2020-04-03] MEDS: INSULIN DEGLUDEC SQ SCH (20:47)
[2020-04-03] MEDS: TRESIBA SQ SCH (20:47)
[2020-04-04] MEDS: Acetaminophen 500 MG Tab PO PRN ×3 (04:24→16:18)
[2020-04-04] MEDS: Ondansetron 4 MG Tab.DIS PO PRN ×2 (04:25→11:31)
[2020-04-04] MEDS: Multivitamins with Iron/Calcium/Folic Acid/Minerals Tab PO SCH (09:15)
[2020-04-04] MEDS: FLUoxetine 20 MG Cap PO SCH (09:15)
[2020-04-04] MEDS: Calcium Carbonate/Vitamin D3 1250 MG-200 Unit Tab PO SCH ×2 (09:15→19:51)
[2020-04-04] MEDS: metFORMIN 500 MG Tab PO SCH (09:15)
[2020-04-04] MEDS: Oxybutynin 5 MG Tab.ER PO SCH (09:15)
[2020-04-04] MEDS: Cholecalciferol (Vitamin D3) 25 MCG Tab PO SCH (09:15)
[2020-04-04] MEDS: Morphine 30 MG Tab.ER PO SCH (09:16)
[2020-04-04] MEDS: Prochlorperazine 5 MG Tab PO PRN (09:16)
[2020-04-04] MEDS: Phytonadione 100 MCG Tab PO SCH (09:25)
[2020-04-04] MEDS ORDERED: LORazepam 1 MG Tab (OWN SUPPLY) PO PRN (11:39)
[2020-04-04] MEDS ORDERED: PROCHLORPERAZINE 5 MG PO PRN (11:42)
[2020-04-04] MEDS ORDERED: oxyCODONE 5 MG Tab (OWN SUPPLY) PO PRN (11:42)
[2020-04-04] MEDS: Calcium Carbonate 750 MG Tab.Chew PO PRN ×2 (12:03→16:23)
[2020-04-04] MEDS: PROCHLORPERAZINE 10 MG PO PRN (16:20)
[2020-04-04] MEDS: metFORMIN 500 MG Tab (OWN SUPPLY) PO SCH (18:53)
[2020-04-04] MEDS: atorvaSTATin 40 MG Tab (OWN SUPPLY) PO SCH (19:50)
[2020-04-04] MEDS: WARFARIN 7.5 MG PO SCH (19:51)
[2020-04-04] MEDS: MORPHINE 30 MG PO SCH (19:54)
[2020-04-04] MEDS: TRESIBA SQ SCH (20:11)
[2020-04-05] MEDS: ONDANSETRON 8 MG PO PRN ×2 (06:11→19:26)
[2020-04-05] MEDS: OXYBUTYNIN 5 MG PO SCH (08:21)
[2020-04-05] MEDS: metFORMIN 500 MG Tab (OWN SUPPLY) PO SCH ×2 (08:21→19:22)
[2020-04-05] MEDS: FLUOXETINE 20 MG PO SCH (08:21)
[2020-04-05] MEDS: MORPHINE 30 MG PO SCH ×2 (08:22→19:24)
[2020-04-05] MEDS: Calcium Carbonate/Vitamin D3 1250 MG-200 Unit Tab PO SCH ×2 (08:26→19:23)
[2020-04-05] MEDS: Multivitamins with Iron/Calcium/Folic Acid/Minerals Tab PO SCH (08:26)
[2020-04-05] MEDS: Cholecalciferol (Vitamin D3) 25 MCG Tab PO SCH (08:26)
[2020-04-05] MEDS: Phytonadione 100 MCG Tab PO SCH (08:26)
[2020-04-05] MEDS: PROCHLORPERAZINE 10 MG PO PRN (11:53)
[2020-04-05] MEDS: atorvaSTATin 40 MG Tab (OWN SUPPLY) PO SCH (19:23)
[2020-04-05] MEDS: WARFARIN 7.5 MG PO SCH (19:23)
[2020-04-05] MEDS: TRESIBA SQ SCH (19:30)
[2020-04-05] MEDS: Calcium Carbonate 750 MG Tab.Chew PO PRN (19:44)
[2020-04-06] MEDS: ONDANSETRON 8 MG PO PRN ×2 (05:40→17:09)
[2020-04-06] MEDS: PROCHLORPERAZINE 10 MG PO PRN ×2 (06:01→19:54)
[2020-04-06] MEDS: MORPHINE 30 MG PO SCH ×2 (07:51→19:55)
[2020-04-06] MEDS: FLUOXETINE 20 MG PO SCH (07:51)
[2020-04-06] MEDS: OXYBUTYNIN 5 MG PO SCH (07:51)
[2020-04-06] MEDS: metFORMIN 500 MG Tab (OWN SUPPLY) PO SCH ×2 (07:51→17:45)
[2020-04-06] MEDS: Phytonadione 100 MCG Tab PO SCH (07:52)
[2020-04-06] MEDS: Calcium Carbonate/Vitamin D3 1250 MG-200 Unit Tab PO SCH ×2 (07:52→19:51)
[2020-04-06] MEDS: Multivitamins with Iron/Calcium/Folic Acid/Minerals Tab PO SCH (07:52)
[2020-04-06] MEDS: Cholecalciferol (Vitamin D3) 25 MCG Tab PO SCH (07:52)
[2020-04-06] MEDS: atorvaSTATin 40 MG Tab (OWN SUPPLY) PO SCH (19:52)
[2020-04-06] MEDS: WARFARIN 7.5 MG PO SCH (19:52)
[2020-04-06] MEDS: TRESIBA SQ SCH (22:11)
[2020-04-06] MEDS: Acetaminophen 500 MG Tab PO PRN (22:14)
[2020-04-07] MEDS: ONDANSETRON 8 MG PO PRN (03:09)
[2020-04-07] MEDS: FLUOXETINE 20 MG PO SCH (07:53)
[2020-04-07] MEDS: MORPHINE 30 MG PO SCH ×2 (07:53→21:23)
[2020-04-07] MEDS: metFORMIN 500 MG Tab (OWN SUPPLY) PO SCH ×2 (07:53→18:02)
[2020-04-07] MEDS: OXYBUTYNIN 5 MG PO SCH (07:53)
[2020-04-07] MEDS: PROCHLORPERAZINE 10 MG PO PRN (07:54)
[2020-04-07] MEDS: Calcium Carbonate/Vitamin D3 1250 MG-200 Unit Tab PO SCH ×2 (07:54→21:22)
[2020-04-07] MEDS: Phytonadione 100 MCG Tab PO SCH (07:54)
[2020-04-07] MEDS: Multivitamins with Iron/Calcium/Folic Acid/Minerals Tab PO SCH (07:54)
[2020-04-07] MEDS: Cholecalciferol (Vitamin D3) 25 MCG Tab PO SCH (07:54)
--- NOTE | 2020-04-07 16:04 | PCM.PN ---
- General Info Date of Service: 04/07/20 Subjective Update: 65 yo male on swing bed due to difficulty with ADL's in the setting of metastatic cancer is seen today for swing bed follow-up. He went out on pass today and enjoyed this very much. He saw some friends and went out to the field while they were combining. He also went home and took care of some things and took a nap. He is tired now but knows this is due to the busy day. His pain is otherwise well controlled. His nausea is also controlled and he has not been vomiting. His appetite has been ok. He is having regular bowel movements and is voiding without any issues. He spoke briefly with his oncologist yesterday and there has been no change in plans since his last visit with them. - Review of Systems General: Reports: No Symptoms HEENT: Reports: No Symptoms Pulmonary: Reports: No Symptoms Cardiovascular: Reports: No Symptoms Gastrointestinal: Reports: No Symptoms Genitourinary: Reports: No Symptoms Musculoskeletal: Reports: No Symptoms Skin: Reports: No Symptoms Neurological: Reports: No Symptoms - Patient Data Vitals - Most Recent: Last Vital Signs Temp 36.1 C 04/07/20 06:00 Pulse 74 04/07/20 06:00 Resp 16 04/07/20 06:00 BP 151/94 H 04/07/20 06:00 Pulse Ox 93 L 04/07/20 06:00 Weight - Most Recent: 122.651 kg I&O - Last 24 Hours: Intake & Output 04/07/20 04/07/20 04/07/20 06:59 14:59 22:59 Intake Total 120 Balance 120 Lab Results Last 24 Hours: Laboratory Results - last 24 hr 04/06/20 04/06/20 04/06/20 Range/Units 17:15 19:49 22:11 POC Glucose 117 H 151 H 116 H (74-106) mg/dL 04/07/20 04/07/20 Range/Units 03:12 06:17 POC Glucose 132 H 133 H (74-106) mg/dL Med Orders - Current: Current Medications Acetaminophen (Tylenol Extra Strength) 500 mg PO Q4H PRN PRN Reason: Pain (mild 1-3) Last Admin: 04/06/20 22:14 Dose: 500 mg Documented by: Acetaminophen/Diphenhydramine HCl (Tylenol Pm Extra Strength) 2 tab PO BEDTIME PRN PRN Reason: Sleep Atorvastatin Calcium (Lipitor) 40 mg PO BEDTIME [facility] Last Admin: 04/06/20 19:52 Dose: 40 mg Documented by: Calcium Carbonate (Calcium Carbonate/Vitamin D 1250 Mg-200 Unit) 1 tab PO BID [facility] Last Admin: 04/07/20 07:54 Dose: 1 tab Documented by: Calcium Carbonate/Glycine (Tums Extra Strength) 750 mg PO Q2H PRN PRN Reason: Dyspepsia Last Admin: 04/05/20 19:44 Dose: 750 mg Documented by: Cholecalciferol (Vitamin D3) 50 mcg PO DAILY [facility] Last Admin: 04/07/20 07:54 Dose: 50 mcg Documented by: Fluoxetine HCl (Prozac) 40 mg PO DAILY [facility] Last Admin: 04/07/20 07:53 Dose: 40 mg Documented by: Lorazepam (Ativan) 1 mg PO DAILY PRN PRN Reason: Anxiety Magnesium Hydroxide (Milk Of Magnesia) 30 ml PO BID PRN PRN Reason: Constipation Metformin HCl (Glucophage) 1,000 mg PO BIDMEALS [facility] Last Admin: 04/07/20 07:53 Dose: 1,000 mg Documented by: Morphine Sulfate (Ms Contin) 30 mg PO BID [facility] Last Admin: 04/07/20 07:53 Dose: 30 mg Documented by: Multivitamins/Minerals (Thera M Plus) 1 tab PO DAILY [facility] Last Admin: 04/07/20 07:54 Dose: 1 tab Documented by: Naproxen (Naproxen Sodium) 220 mg PO DAILY PRN PRN Reason: Pain Tresiba Own Med 0 unit SQ BEDTIME [facility] Last Admin: 04/06/20 22:11 Dose: Not Given Documented by: Warfarin 3.75mg (1/2 (X 7.5mg Tab)) 0 each PO MO@1999 [facility] Warfarin 7.5mg (Own (Supply)) 0 each PO SUTUWETHFRSA@1999 [facility] Last Admin: 04/06/20 19:52 Dose: 1 each Documented by: Ondansetron 8mg (Own (Supply)) 1 each PO TID PRN PRN Reason: Nausea Last Admin: 04/07/20 03:09 Dose: 1 each Documented by: Oxycodone 10mg (Own (Supply)) 1 each PO Q6H PRN PRN Reason: Pain (moderate 4-6) Last Admin: 04/07/20 03:08 Dose: 1 each Documented by: Prochlorperazine 10mg Tab (Own Supply ) 1 each PO QID PRN PRN Reason: nausea/vomiting Last Admin: 04/07/20 07:54 Dose: 1 each Documented by: Spencer Celaya To (Monitor Inrs) 1 each .XX ASDIRECTED PRN PRN Reason: other Olanzapine (Zyprexa) 5 mg PO BEDTIME PRN PRN Reason: Nausea Oxybutynin Chloride (Oxybutynin Er) 5 mg PO DAILY [facility] Last Admin: 04/07/20 07:53 Dose: 5 mg Documented by: Phytonadione (Vitamin K) 100 mcg PO DAILY [facility] Last Admin: 04/07/20 07:54 Dose: 100 mcg Documented by: Polyethylene Glycol (Miralax) 17 gm PO BID PRN PRN Reason: Constipation Senna/Docusate Sodium (Senna Plus) 1 tab PO BID PRN PRN Reason: Constipation Last Admin: 03/24/20 08:41 Dose: 1 tab Documented by: Discontinued Medications Atorvastatin Calcium (Lipitor) 40 mg PO BEDTIME [facility] Last Admin: 04/03/20 20:46 Dose: 40 mg Documented by: Fluoxetine HCl (Prozac) 40 mg PO DAILY [facility] Last Admin: 04/04/20 09:15 Dose: 40 mg Documented by: Lisinopril (Prinivil) 20 mg PO DAILY [facility] Last Admin: 04/03/20 08:16 Dose: Not Given Documented by: Lorazepam (Ativan) 1 mg PO DAILY PRN PRN Reason: Anxiety Metformin HCl (Glucophage) 1,000 mg PO BIDMEALS [facility] Last Admin: 04/04/20 09:15 Dose: 1,000 mg Documented by: Morphine Sulfate (Ms Contin) 30 mg PO BID [facility] Last Admin: 04/04/20 09:16 Dose: 30 mg Documented by: Non-Formulary Medication (Insulin Degludec [Tresiba]) 0 unit SQ BEDTIME [facility] Last Admin: 04/01/20 20:34 Dose: 50 unit Documented by: Non-Formulary Medication (Insulin Degludec [Tresiba]) 0 unit SQ BEDTIME [facility] Last Admin: 04/03/20 20:47 Dose: Not Given Documented by: Insulin Degludec [ Tresiba] (Own Supply ) 0 unit SQ BEDTIME [facility] Last Admin: 03/22/20 19:54 Dose: 54 unit Documented by: Olanzapine (Zyprexa) 5 mg PO BEDTIME PRN PRN Reason: Nausea Ondansetron HCl (Zofran Odt) 8 mg PO TID PRN PRN Reason: Nausea Ondansetron HCl (Zofran Odt) 8 mg PO TID PRN PRN Reason: Nausea Last Admin: 04/04/20 11:31 Dose: 8 mg Documented by: Oxybutynin Chloride (Oxybutynin Er) 5 mg PO DAILY [facility] Last Admin: 04/04/20 09:15 Dose: 5 mg Documented by: Oxycodone HCl (Oxycodone) 10 mg PO Q6H PRN PRN Reason: Pain (moderate 4-6) Oxycodone HCl (Oxycodone) 10 mg PO Q6H PRN PRN Reason: Pain (moderate 4-6) Last Admin: 03/31/20 06:10 Dose: 10 mg Documented by: Polyethylene Glycol (Miralax) 17 gm PO BID [facility] Last Admin: 03/27/20 08:35 Dose: Not Given Documented by: Prochlorperazine Maleate (Compazine) 10 mg PO QID PRN PRN Reason: Nausea Prochlorperazine Maleate (Compazine) 10 mg PO QID PRN PRN Reason: Nausea Last Admin: 04/04/20 09:16 Dose: 10 mg Documented by: Warfarin Sodium (Coumadin) 3.75 mg PO MoFr@1999 [facility] Last Admin: 03/27/20 22:06 Dose: 3.75 mg Documented by: Warfarin Sodium (Coumadin) 5 mg PO MO@1999 [facility] Last Admin: 04/03/20 20:46 Dose: 5 mg Documented by: Warfarin Sodium (Coumadin) 7.5 mg PO SUTUWETHFRSA@1999 [facility] Last Admin: 04/02/20 19:54 Dose: 7.5 mg Documented by: Warfarin Sodium (Coumadin) 3.75 mg PO MoFr@1999 [facility] Last Admin: 03/28/20 01:23 Dose: Not Given Documented by: Warfarin Sodium (Coumadin) 7.5 mg PO SuTuWeThSa@1999 [facility] Last Admin: 03/26/20 19:49 Dose: 7.5 mg Documented by: - Exam General: Alert, Oriented, Cooperative, No Acute Distress HEENT: Mucous Membr. Moist/[place] Neck: Supple, Trachea Midline, No Thyromegaly. No: Lymphadenopathy Lungs: Clear to Auscultation, Normal Respiratory Effort Cardiovascular: Regular Rate, Regular Rhythm, No Murmurs GI/Abdominal Exam: Normal Bowel Sounds, Soft, Non-Tender, No Organomegaly, No Distention, No Mass Extremities: Non-Tender, No Pedal Edema Peripheral Pulses: 2+: Radial (L), Radial (R) Skin: Warm, Dry, Intact Sepsis Event Note - Evaluation Sepsis Screening Result: No Definite Risk - Focused Exam Vital Signs: Vital Signs Temp Pulse Resp BP Pulse Ox 04/07/20 06:00 36.1 C 74 16 151/94 H 93 L - Problem List & Annotations (1) Generalized weakness SNOMED Code(s): 17838453 Code(s): R53.1 - WEAKNESS Status: Acute Current Visit: No (2) Prostate cancer metastatic to bone SNOMED Code(s): 995368047 Code(s): C61 - MALIGNANT NEOPLASM OF PROSTATE; C79.51 - SECONDARY MALIGNANT NEOPLASM OF BONE Status: Chronic Current Visit: No (3) Constipation SNOMED Code(s): 99796742 Code(s): K59.00 - CONSTIPATION, UNSPECIFIED Status: Acute Current Visit: No Qualifiers: Constipation type: drug induced constipation Qualified Code(s): K59.03 - Drug induced constipation (4) Hypertension SNOMED Code(s): 34562615 Code(s): I10 - ESSENTIAL (PRIMARY) HYPERTENSION Status: Chronic Current Visit: No Qualifiers: Hypertension type: essential hypertension Qualified Code(s): I10 - Essential (primary) hypertension (5) Diabetes SNOMED Code(s): 78708100 Code(s): E11.9 - TYPE 2 DIABETES MELLITUS WITHOUT COMPLICATIONS Status: Chronic Current Visit: No Qualifiers: Diabetes mellitus type: type 2 Diabetes mellitus 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 Diabetes mellitus complication status: without complication Qualified Code(s): E11.9 - Type 2 diabetes mellitus without complications; Z79.4 - rn long term care (current) use of insulin (6) Hyperlipidemia SNOMED Code(s): 44939725 Code(s): E78.5 - HYPERLIPIDEMIA, UNSPECIFIED Status: Chronic Current Visit: No Qualifiers: Hyperlipidemia type: unspecified Qualified Code(s): E78.5 - Hyperlipidemia, unspecified (7) Hx TIA/stroke w/o resid SNOMED Code(s): 415857369, 381435201, 755587699 Code(s): Z86.73 - PRSNL HX OF TIA (TIA), AND CEREB INFRC W/O RESID DEFICITS Status: Chronic Current Visit: No (8) Depression SNOMED Code(s): 54046955 Code(s): F32.9 - MAJOR DEPRESSIVE DISORDER, SINGLE EPISODE, UNSPECIFIED Status: Chronic Current Visit: No Qualifiers: Depression Type: unspecified Qualified Code(s): F32.9 - Major depressive disorder, single episode, unspecified - Problem List Review Problem List Initiated/Reviewed/Updated: Yes - My Orders Last 24 Hours: My Active Orders 04/10/20 20:00 Non-Formulary Medication [NF Drug] 0 each PO MO@199904/11/20 05:11 INR,PT,PROTHROMBIN TIME [COAG] WEEKLY 04/18/20 05:11 INR,PT,PROTHROMBIN TIME [COAG] WEEKLY 04/23/20 05:11 CBC WITH AUTO DIFF [HEME] Routine CMP [COMPREHENSIVE METABOLIC PN,CMP] [CHEM] Routine PSA TOTAL%EE [REF] Routine 04/25/20 05:11 INR,PT,PROTHROMBIN TIME [COAG] WEEKLY 05/02/20 05:11 INR,PT,PROTHROMBIN TIME [COAG] WEEKLY 05/09/20 05:11 INR,PT,PROTHROMBIN TIME [COAG] WEEKLY 05/16/20 05:11 INR,PT,PROTHROMBIN TIME [COAG] WEEKLY 05/23/20 05:11 INR,PT,PROTHROMBIN TIME [COAG] WEEKLY 05/30/20 05:11 INR,PT,PROTHROMBIN TIME [COAG] WEEKLY - Assessment Assessment:: 65 yo male admitted to swing bed for symptom control and strengthening related to weakness secondary to his metastatic cancer and related treatments. No longer planning any further cancer treatments. Symptoms are well controlled. - Plan Plan:: #1 Generalized weakness #2 Metastatic prostate cancer #3 Drug induced constipation - PT/OT no longer following. - No further plans for cancer treatments. - Case management is working with patient for longer term plans. He feels he is doing well at [facility] and his symptoms are controlled; therefore, he does not really want to change anything at this time. He is not ready to pursue hospice. - Continue current anti-emetics and current pain regimen. - Continue bowel regimen PRN. #4 Hypertension #5 Diabetes #6 Hyperlipidemia #7 s/p TIA #8 Depression - Glucoses have been acceptable. - Continue current medications. - Will check glucoses fasting once/day. - Warfarin to be managed per anticoagulation clinic. Patient will be admitted to swing bed and will remain on swing bed indefinitely at this time given plan is for palliative care - can consider hospice if/when he is ready for this. Code status is DNR/DNI - discussed with patient on admission. No indication for VTE prophylaxis as he is on warfarin.
[2020-04-07] MEDS: atorvaSTATin 40 MG Tab (OWN SUPPLY) PO SCH (21:23)
[2020-04-07] MEDS: WARFARIN 7.5 MG PO SCH (21:25)
[2020-04-07] MEDS: TRESIBA SQ SCH (21:25)
[2020-04-08] MEDS: OXYBUTYNIN 5 MG PO SCH (08:35)
[2020-04-08] MEDS: metFORMIN 500 MG Tab (OWN SUPPLY) PO SCH ×2 (08:35→17:55)
[2020-04-08] MEDS: FLUOXETINE 20 MG PO SCH (08:35)
[2020-04-08] MEDS: MORPHINE 30 MG PO SCH ×2 (08:35→20:58)
[2020-04-08] MEDS: Cholecalciferol (Vitamin D3) 25 MCG Tab PO SCH (08:35)
[2020-04-08] MEDS: PROCHLORPERAZINE 10 MG PO PRN (08:35)
[2020-04-08] MEDS: Phytonadione 100 MCG Tab PO SCH (08:36)
[2020-04-08] MEDS: Multivitamins with Iron/Calcium/Folic Acid/Minerals Tab PO SCH (08:36)
[2020-04-08] MEDS: Calcium Carbonate/Vitamin D3 1250 MG-200 Unit Tab PO SCH ×2 (08:36→20:05)
[2020-04-08] MEDS: OLANZAPINE 5 MG PO PRN (17:55)
[2020-04-08] MEDS: atorvaSTATin 40 MG Tab (OWN SUPPLY) PO SCH (20:04)
[2020-04-08] MEDS: TRESIBA SQ SCH (20:06)
[2020-04-08] MEDS: WARFARIN 7.5 MG PO SCH (21:01)
[2020-04-09] MEDS: Phytonadione 100 MCG Tab PO SCH (08:21)
[2020-04-09] MEDS: MORPHINE 30 MG PO SCH ×2 (08:21→21:00)
[2020-04-09] MEDS: Calcium Carbonate/Vitamin D3 1250 MG-200 Unit Tab PO SCH ×2 (08:21→21:00)
[2020-04-09] MEDS: Cholecalciferol (Vitamin D3) 25 MCG Tab PO SCH (08:21)
[2020-04-09] MEDS: OXYBUTYNIN 5 MG PO SCH (08:21)
[2020-04-09] MEDS: PROCHLORPERAZINE 10 MG PO PRN ×2 (08:21→18:20)
[2020-04-09] MEDS: FLUOXETINE 20 MG PO SCH (08:21)
[2020-04-09] MEDS: metFORMIN 500 MG Tab (OWN SUPPLY) PO SCH ×2 (08:21→18:20)
[2020-04-09] MEDS: Multivitamins with Iron/Calcium/Folic Acid/Minerals Tab PO SCH (08:22)
[2020-04-09] MEDS: TRESIBA SQ SCH (21:00)
[2020-04-09] MEDS: WARFARIN 7.5 MG PO SCH (21:00)
[2020-04-09] MEDS: atorvaSTATin 40 MG Tab (OWN SUPPLY) PO SCH (21:00)
[2020-04-10] MEDS: Multivitamins with Iron/Calcium/Folic Acid/Minerals Tab PO SCH (09:33)
[2020-04-10] MEDS: Phytonadione 100 MCG Tab PO SCH (09:33)
[2020-04-10] MEDS: Calcium Carbonate/Vitamin D3 1250 MG-200 Unit Tab PO SCH ×2 (09:33→20:44)
[2020-04-10] MEDS: Cholecalciferol (Vitamin D3) 25 MCG Tab PO SCH (09:33)
[2020-04-10] MEDS: metFORMIN 500 MG Tab (OWN SUPPLY) PO SCH ×2 (09:34→17:51)
[2020-04-10] MEDS: MORPHINE 30 MG PO SCH ×2 (09:34→20:44)
[2020-04-10] MEDS: FLUOXETINE 20 MG PO SCH (09:36)
[2020-04-10] MEDS: OXYBUTYNIN 5 MG PO SCH (09:38)
[2020-04-10] MEDS ORDERED: WARFARIN PO SCH (20:00)
[2020-04-10] MEDS: atorvaSTATin 40 MG Tab (OWN SUPPLY) PO SCH (20:45)
[2020-04-10] MEDS: TRESIBA SQ SCH (20:49)
[2020-04-11] MEDS: PROCHLORPERAZINE 10 MG PO PRN ×2 (05:14→20:10)
[2020-04-11] MEDS: metFORMIN 500 MG Tab (OWN SUPPLY) PO SCH ×2 (08:48→20:09)
[2020-04-11] MEDS: Calcium Carbonate/Vitamin D3 1250 MG-200 Unit Tab PO SCH ×2 (08:48→20:08)
[2020-04-11] MEDS: Phytonadione 100 MCG Tab PO SCH (08:48)
[2020-04-11] MEDS: Multivitamins with Iron/Calcium/Folic Acid/Minerals Tab PO SCH (08:48)
[2020-04-11] MEDS: Cholecalciferol (Vitamin D3) 25 MCG Tab PO SCH (08:48)
[2020-04-11] MEDS: MORPHINE 30 MG PO SCH ×2 (08:49→20:10)
[2020-04-11] MEDS: FLUOXETINE 20 MG PO SCH (08:49)
[2020-04-11] MEDS: OXYBUTYNIN 5 MG PO SCH (08:49)
[2020-04-11] MEDS ORDERED: WARFARIN PO ONE (20:00)
[2020-04-11] MEDS: atorvaSTATin 40 MG Tab (OWN SUPPLY) PO SCH (20:09)
[2020-04-11] MEDS: TRESIBA SQ SCH (20:13)
[2020-04-12] MEDS: ONDANSETRON 8 MG PO PRN (05:53)
[2020-04-12] MEDS: Calcium Carbonate/Vitamin D3 1250 MG-200 Unit Tab PO SCH ×2 (08:29→19:27)
[2020-04-12] MEDS: Phytonadione 100 MCG Tab PO SCH (08:29)
[2020-04-12] MEDS: metFORMIN 500 MG Tab (OWN SUPPLY) PO SCH ×2 (08:29→17:39)
[2020-04-12] MEDS: Cholecalciferol (Vitamin D3) 25 MCG Tab PO SCH (08:29)
[2020-04-12] MEDS: Multivitamins with Iron/Calcium/Folic Acid/Minerals Tab PO SCH (08:29)
[2020-04-12] MEDS: FLUOXETINE 20 MG PO SCH (08:29)
[2020-04-12] MEDS: MORPHINE 30 MG PO SCH ×2 (08:30→19:26)
[2020-04-12] MEDS: OXYBUTYNIN 5 MG PO SCH (08:30)
[2020-04-12] MEDS: PROCHLORPERAZINE 10 MG PO PRN ×2 (11:37→19:27)
[2020-04-12] MEDS: atorvaSTATin 40 MG Tab (OWN SUPPLY) PO SCH (19:27)
[2020-04-12] MEDS: WARFARIN 7.5 MG PO SCH (19:28)
[2020-04-12] MEDS: TRESIBA SQ SCH (19:29)
[2020-04-13] MEDS: PROCHLORPERAZINE 10 MG PO PRN ×2 (05:32→09:57)
[2020-04-13] MEDS: ONDANSETRON 8 MG PO PRN (06:38)
[2020-04-13] MEDS: metFORMIN 500 MG Tab (OWN SUPPLY) PO SCH ×2 (08:26→18:03)
[2020-04-13] MEDS: FLUOXETINE 20 MG PO SCH (08:27)
[2020-04-13] MEDS: Cholecalciferol (Vitamin D3) 25 MCG Tab PO SCH (08:27)
[2020-04-13] MEDS: Calcium Carbonate/Vitamin D3 1250 MG-200 Unit Tab PO SCH ×2 (08:27→20:24)
[2020-04-13] MEDS: Phytonadione 100 MCG Tab PO SCH (08:27)
[2020-04-13] MEDS: OXYBUTYNIN 5 MG PO SCH (08:27)
[2020-04-13] MEDS: MORPHINE 30 MG PO SCH ×2 (08:28→20:22)
[2020-04-13] MEDS: Multivitamins with Iron/Calcium/Folic Acid/Minerals Tab PO SCH (08:28)
[2020-04-13] MEDS: OLANZAPINE 5 MG PO PRN (18:04)
[2020-04-13] MEDS: atorvaSTATin 40 MG Tab (OWN SUPPLY) PO SCH (20:24)
[2020-04-13] MEDS: WARFARIN 7.5 MG PO SCH (20:24)
[2020-04-13] MEDS: TRESIBA SQ SCH (20:25)
[2020-04-14] MEDS: MORPHINE 30 MG PO SCH ×2 (07:58→19:18)
[2020-04-14] MEDS: FLUOXETINE 20 MG PO SCH (08:00)
[2020-04-14] MEDS: metFORMIN 500 MG Tab (OWN SUPPLY) PO SCH ×2 (08:00→17:34)
[2020-04-14] MEDS: Cholecalciferol (Vitamin D3) 25 MCG Tab PO SCH (08:01)
[2020-04-14] MEDS: PROCHLORPERAZINE 10 MG PO PRN (08:01)
[2020-04-14] MEDS: OXYBUTYNIN 5 MG PO SCH (08:01)
[2020-04-14] MEDS: Phytonadione 100 MCG Tab PO SCH (08:01)
[2020-04-14] MEDS: Calcium Carbonate/Vitamin D3 1250 MG-200 Unit Tab PO SCH ×2 (08:02→19:22)
[2020-04-14] MEDS: Multivitamins with Iron/Calcium/Folic Acid/Minerals Tab PO SCH (08:02)
[2020-04-14] MEDS: OLANZAPINE 5 MG PO PRN (17:34)
[2020-04-14] MEDS: WARFARIN 7.5 MG PO SCH (19:20)
[2020-04-14] MEDS: atorvaSTATin 40 MG Tab (OWN SUPPLY) PO SCH (19:21)
[2020-04-14] MEDS: TRESIBA SQ SCH (19:22)
[2020-04-15] MEDS: MORPHINE 30 MG PO SCH ×2 (08:28→20:15)
[2020-04-15] MEDS: Phytonadione 100 MCG Tab PO SCH (08:29)
[2020-04-15] MEDS: Calcium Carbonate/Vitamin D3 1250 MG-200 Unit Tab PO SCH ×2 (08:29→20:12)
[2020-04-15] MEDS: Cholecalciferol (Vitamin D3) 25 MCG Tab PO SCH (08:29)
[2020-04-15] MEDS: FLUOXETINE 20 MG PO SCH (08:30)
[2020-04-15] MEDS: metFORMIN 500 MG Tab (OWN SUPPLY) PO SCH ×2 (08:30→18:42)
[2020-04-15] MEDS: OXYBUTYNIN 5 MG PO SCH (08:30)
[2020-04-15] MEDS: ONDANSETRON 8 MG PO PRN (08:30)
[2020-04-15] MEDS: Polyethylene Glycol 3350 Powder 17 GM Packet PO PRN (08:30)
[2020-04-15] MEDS: Multivitamins with Iron/Calcium/Folic Acid/Minerals Tab PO SCH (10:27)
[2020-04-15] MEDS: OLANZAPINE 5 MG PO PRN (18:43)
[2020-04-15] MEDS: atorvaSTATin 40 MG Tab (OWN SUPPLY) PO SCH (20:12)
[2020-04-15] MEDS: WARFARIN 7.5 MG PO SCH (20:13)
[2020-04-15] MEDS: TRESIBA SQ SCH (20:18)
[2020-04-16] MEDS: MORPHINE 30 MG PO SCH ×2 (08:29→20:05)
[2020-04-16] MEDS: metFORMIN 500 MG Tab (OWN SUPPLY) PO SCH ×2 (08:30→17:45)
[2020-04-16] MEDS: FLUOXETINE 20 MG PO SCH (08:30)
[2020-04-16] MEDS: OXYBUTYNIN 5 MG PO SCH (08:31)
[2020-04-16] MEDS: PROCHLORPERAZINE 10 MG PO PRN (08:31)
[2020-04-16] MEDS: Multivitamins with Iron/Calcium/Folic Acid/Minerals Tab PO SCH (08:32)
[2020-04-16] MEDS: Calcium Carbonate/Vitamin D3 1250 MG-200 Unit Tab PO SCH ×2 (08:32→20:05)
[2020-04-16] MEDS: Phytonadione 100 MCG Tab PO SCH (08:32)
[2020-04-16] MEDS: Cholecalciferol (Vitamin D3) 25 MCG Tab PO SCH (08:32)
[2020-04-16] MEDS: ONDANSETRON 8 MG PO PRN (11:25)
[2020-04-16] MEDS: OLANZAPINE 5 MG PO PRN (17:45)
[2020-04-16] MEDS: WARFARIN 7.5 MG PO SCH (20:04)
[2020-04-16] MEDS: atorvaSTATin 40 MG Tab (OWN SUPPLY) PO SCH (20:05)
[2020-04-17] MEDS: metFORMIN 500 MG Tab (OWN SUPPLY) PO SCH (08:15)
[2020-04-17] MEDS: Phytonadione 100 MCG Tab PO SCH (08:15)
[2020-04-17] MEDS: Acetaminophen 500 MG Tab PO PRN (08:15)
[2020-04-17] MEDS: FLUOXETINE 20 MG PO SCH (08:15)
[2020-04-17] MEDS: Multivitamins with Iron/Calcium/Folic Acid/Minerals Tab PO SCH (08:15)
[2020-04-17] MEDS: Calcium Carbonate/Vitamin D3 1250 MG-200 Unit Tab PO SCH ×2 (08:15→20:12)
[2020-04-17] MEDS: Cholecalciferol (Vitamin D3) 25 MCG Tab PO SCH (08:15)
[2020-04-17] MEDS: MORPHINE 30 MG PO SCH ×2 (08:16→20:10)
[2020-04-17] MEDS: OXYBUTYNIN 5 MG PO SCH (08:16)
[2020-04-17] MEDS: PROCHLORPERAZINE 10 MG PO PRN (08:16)
--- NOTE | 2020-04-17 11:29 | PCM.PN ---
- General Info Date of Service: 04/17/20 Subjective Update: 65 yo male seen today for swing bed follow-up. He denies any concerns today. He is feeling more generally weak. His nausea is controlled but he does not have much of an appetite. He has not had any vomiting. No constipation. Voiding without any issues. Pain is well controlled. Was able to go home on pass last weekend and get some things done at home. - Review of Systems General: Reports: No Symptoms HEENT: Reports: No Symptoms Pulmonary: Reports: No Symptoms Cardiovascular: Reports: No Symptoms Gastrointestinal: Reports: No Symptoms Genitourinary: Reports: No Symptoms Musculoskeletal: Reports: No Symptoms Skin: Reports: No Symptoms Neurological: Reports: No Symptoms Psychiatric: Reports: No Symptoms - Patient Data Vitals - Most Recent: Last Vital Signs Temp 36.6 C 04/17/20 05:41 Pulse 87 04/17/20 05:41 Resp 17 04/17/20 05:41 BP 138/95 H 04/17/20 05:41 Pulse Ox 93 L 04/17/20 05:41 Weight - Most Recent: 93.44 kg I&O - Last 24 Hours: Intake & Output 04/16/20 04/17/20 04/17/20 22:59 06:59 14:59 Intake Total 260 Balance 260 Lab Results Last 24 Hours: Laboratory Results - last 24 hr 04/17/20 Range/Units 05:18 POC Glucose 69 L (74-106) mg/dL Med Orders - Current: Current Medications Acetaminophen (Tylenol Extra Strength) 500 mg PO Q4H PRN PRN Reason: Pain (mild 1-3) Last Admin: 04/17/20 08:15 Dose: 500 mg Documented by: Acetaminophen/Diphenhydramine HCl (Tylenol Pm Extra Strength) 2 tab PO BEDTIME PRN PRN Reason: Sleep Atorvastatin Calcium (Lipitor) 40 mg PO BEDTIME KENZIE Last Admin: 04/16/20 20:05 Dose: 40 mg Documented by: Calcium Carbonate (Calcium Carbonate/Vitamin D 1250 Mg-200 Unit) 1 tab PO BID KENZIE Last Admin: 04/17/20 08:15 Dose: 1 tab Documented by: Calcium Carbonate/Glycine (Tums Extra Strength) 750 mg PO Q2H PRN PRN Reason: Dyspepsia Last Admin: 04/05/20 19:44 Dose: 750 mg Documented by: Cholecalciferol (Vitamin D3) 50 mcg PO DAILY [facility] Last Admin: 04/17/20 08:15 Dose: 50 mcg Documented by: Fluoxetine HCl (Prozac) 40 mg PO DAILY [facility] Last Admin: 04/17/20 08:15 Dose: 40 mg Documented by: Lorazepam (Ativan) 1 mg PO DAILY PRN PRN Reason: Anxiety Magnesium Hydroxide (Milk Of Magnesia) 30 ml PO BID PRN PRN Reason: Constipation Morphine Sulfate (Ms Contin) 30 mg PO BID [facility] Last Admin: 04/17/20 08:16 Dose: 30 mg Documented by: Multivitamins/Minerals (Thera M Plus) 1 tab PO DAILY [facility] Last Admin: 04/17/20 08:15 Dose: 1 tab Documented by: Naproxen (Naproxen Sodium) 220 mg PO DAILY PRN PRN Reason: Pain Ondansetron 8mg (Own (Supply)) 1 each PO TID PRN PRN Reason: Nausea Last Admin: 04/16/20 11:25 Dose: 1 each Documented by: Oxycodone 10mg (Own (Supply)) 1 each PO Q6H PRN PRN Reason: Pain (moderate 4-6) Last Admin: 04/14/20 17:33 Dose: 1 each Documented by: Prochlorperazine 10mg Tab (Own Supply ) 1 each PO QID PRN PRN Reason: nausea/vomiting Last Admin: 04/17/20 08:16 Dose: 1 each Documented by: Warfarin 7.5mg (Own (Supply)) 0 each PO BEDTIME [facility] Last Admin: 04/16/20 20:04 Dose: 1 each Documented by: Spencer Young (Monitor Inrs) 1 each .XX ASDIRECTED PRN PRN Reason: other Olanzapine (Zyprexa) 5 mg PO BEDTIME PRN PRN Reason: Nausea Last Admin: 04/16/20 17:45 Dose: 5 mg Documented by: Oxybutynin Chloride (Oxybutynin Er) 5 mg PO DAILY [facility] Last Admin: 04/17/20 08:16 Dose: 5 mg Documented by: Phytonadione (Vitamin K) 100 mcg PO DAILY [facility] Last Admin: 04/17/20 08:15 Dose: 100 mcg Documented by: Polyethylene Glycol (Miralax) 17 gm PO BID PRN PRN Reason: Constipation Last Admin: 04/15/20 08:30 Dose: 17 gm Documented by: Senna/Docusate Sodium (Senna Plus) 1 tab PO BID PRN PRN Reason: Constipation Last Admin: 04/15/20 08:29 Dose: 1 tab Documented by: Discontinued Medications Atorvastatin Calcium (Lipitor) 40 mg PO BEDTIME [facility] Last Admin: 04/03/20 20:46 Dose: 40 mg Documented by: Fluoxetine HCl (Prozac) 40 mg PO DAILY [facility] Last Admin: 04/04/20 09:15 Dose: 40 mg Documented by: Lisinopril (Prinivil) 20 mg PO DAILY [facility] Last Admin: 04/03/20 08:16 Dose: Not Given Documented by: Lorazepam (Ativan) 1 mg PO DAILY PRN PRN Reason: Anxiety Metformin HCl (Glucophage) 1,000 mg PO BIDMEALS [facility] Last Admin: 04/17/20 08:15 Dose: 1,000 mg Documented by: Metformin HCl (Glucophage) 1,000 mg PO BIDMEALS [facility] Last Admin: 04/04/20 09:15 Dose: 1,000 mg Documented by: Morphine Sulfate (Ms Contin) 30 mg PO BID [facility] Last Admin: 04/04/20 09:16 Dose: 30 mg Documented by: Non-Formulary Medication (Insulin Degludec [Tresiba]) 0 unit SQ BEDTIME [facility] Last Admin: 04/01/20 20:34 Dose: 50 unit Documented by: Non-Formulary Medication (Insulin Degludec [Tresiba]) 0 unit SQ BEDTIME [facility] Last Admin: 04/03/20 20:47 Dose: Not Given Documented by: [place] Own Med 0 unit SQ BEDTIME [facility] Last Admin: 04/15/20 20:18 Dose: 30 unit Documented by: Warfarin 3.75mg (1/2 (X 7.5mg Tab)) 0 each PO MO@1999 [facility] Last Admin: 04/10/20 20:47 Dose: 1 each Documented by: Warfarin 7.5mg (Own (Supply)) 0 each PO SUTUWETHFRSA@1999 [facility] Last Admin: 04/09/20 21:00 Dose: 1 each Documented by: Warfarin 11.25mg (1 (& 1/2 X 7.5mg Tab)) 0 each PO ONETIME ONE Stop: 04/11/20 20:01 Last Admin: 04/11/20 20:17 Dose: 11.25 each Documented by: Insulin Degludec [ Tresiba] (Own Supply ) 0 unit SQ BEDTIME [facility] Last Admin: 03/22/20 19:54 Dose: 54 unit Documented by: Olanzapine (Zyprexa) 5 mg PO BEDTIME PRN PRN Reason: Nausea Ondansetron HCl (Zofran Odt) 8 mg PO TID PRN PRN Reason: Nausea Ondansetron HCl (Zofran Odt) 8 mg PO TID PRN PRN Reason: Nausea Last Admin: 04/04/20 11:31 Dose: 8 mg Documented by: Oxybutynin Chloride (Oxybutynin Er) 5 mg PO DAILY [facility] Last Admin: 04/04/20 09:15 Dose: 5 mg Documented by: Oxycodone HCl (Oxycodone) 10 mg PO Q6H PRN PRN Reason: Pain (moderate 4-6) Oxycodone HCl (Oxycodone) 10 mg PO Q6H PRN PRN Reason: Pain (moderate 4-6) Last Admin: 03/31/20 06:10 Dose: 10 mg Documented by: Polyethylene Glycol (Miralax) 17 gm PO BID [facility] Last Admin: 03/27/20 08:35 Dose: Not Given Documented by: Prochlorperazine Maleate (Compazine) 10 mg PO QID PRN PRN Reason: Nausea Prochlorperazine Maleate (Compazine) 10 mg PO QID PRN PRN Reason: Nausea Last Admin: 04/04/20 09:16 Dose: 10 mg Documented by: Warfarin Sodium (Coumadin) 3.75 mg PO MoFr@1999 [facility] Last Admin: 03/27/20 22:06 Dose: 3.75 mg Documented by: Warfarin Sodium (Coumadin) 5 mg PO MO@1999 [facility] Last Admin: 04/03/20 20:46 Dose: 5 mg Documented by: Warfarin Sodium (Coumadin) 7.5 mg PO SUTUWETHFRSA@1999 [facility] Last Admin: 04/02/20 19:54 Dose: 7.5 mg Documented by: Warfarin Sodium (Coumadin) 3.75 mg PO MoFr@1999 [facility] Last Admin: 03/28/20 01:23 Dose: Not Given Documented by: Warfarin Sodium (Coumadin) 7.5 mg PO SuTuWeThSa@2000 [facility] Last Admin: 03/26/20 19:49 Dose: 7.5 mg Documented by: - Exam General: Alert, Oriented, Cooperative, No Acute Distress HEENT: Mucous Membr. Moist/[place] Neck: Supple, Trachea Midline, No Thyromegaly. No: Lymphadenopathy Lungs: Clear to Auscultation, Normal Respiratory Effort Cardiovascular: Regular Rate, Regular Rhythm, No Murmurs GI/Abdominal Exam: Normal Bowel Sounds, Soft, Non-Tender, No Organomegaly, No Distention, No Mass Extremities: Normal Inspection, Non-Tender, No Pedal Edema Peripheral Pulses: 2+: Radial (L), Radial (R) Skin: Warm, Dry, Intact Sepsis Event Note - Evaluation Sepsis Screening Result: No Definite Risk - Focused Exam Vital Signs: Vital Signs Temp Pulse Resp BP Pulse Ox 04/17/20 05:41 36.6 C 87 17 138/95 H 93 L - Problem List & Annotations (1) Generalized weakness SNOMED Code(s): 47167818 Code(s): R53.1 - WEAKNESS Status: Acute Current Visit: No (2) Prostate cancer metastatic to bone SNOMED Code(s): 486799410 Code(s): C61 - MALIGNANT NEOPLASM OF PROSTATE; C79.51 - SECONDARY MALIGNANT NEOPLASM OF BONE Status: Chronic Current Visit: No (3) Constipation SNOMED Code(s): 32736622 Code(s): K59.00 - CONSTIPATION, UNSPECIFIED Status: Acute Current Visit: No Qualifiers: Constipation type: drug induced constipation Qualified Code(s): K59.03 - Drug induced constipation (4) Hypertension SNOMED Code(s): 66019579 Code(s): I10 - ESSENTIAL (PRIMARY) HYPERTENSION Status: Chronic Current Visit: No Qualifiers: Hypertension type: essential hypertension Qualified Code(s): I10 - Essential (primary) hypertension (5) Diabetes SNOMED Code(s): 92491049 Code(s): E11.9 - TYPE 2 DIABETES MELLITUS WITHOUT COMPLICATIONS Status: Chronic Current Visit: No Qualifiers: Diabetes mellitus type: type 2 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 insulin use: with shelter use Diabetes mellitus complication status: without complication Qualified Code(s): E11.9 - Type 2 diabetes mellitus without complications; Z79.4 - rn long term care (current) use of insulin (6) Hyperlipidemia SNOMED Code(s): 63275154 Code(s): E78.5 - HYPERLIPIDEMIA, UNSPECIFIED Status: Chronic Current Visit: No Qualifiers: Hyperlipidemia type: unspecified Qualified Code(s): E78.5 - Hyperlipidemia, unspecified (7) Hx TIA/stroke w/o resid SNOMED Code(s): 184652633, 183796528, 408392322 Code(s): Z86.73 - PRSNL HX OF TIA (TIA), AND CEREB INFRC W/O RESID DEFICITS Status: Chronic Current Visit: No (8) Depression SNOMED Code(s): 88392354 Code(s): F32.9 - MAJOR DEPRESSIVE DISORDER, SINGLE EPISODE, UNSPECIFIED Status: Chronic Current Visit: No Qualifiers: Depression Type: unspecified Qualified Code(s): F32.9 - Major depressive disorder, single episode, unspecified - Problem List Review Problem List Initiated/Reviewed/Updated: Yes - My Orders Last 24 Hours: My Active Orders 04/18/20 05:11 BASIC METABOLIC PANEL,BMP [CHEM] Routine INR,PT,PROTHROMBIN TIME [COAG] WEEKLY 04/23/20 05:11 CBC WITH AUTO DIFF [HEME] Routine CMP [COMPREHENSIVE METABOLIC PN,CMP] [CHEM] Routine PSA TOTAL%EE [REF] Routine 04/25/20 05:11 INR,PT,PROTHROMBIN TIME [COAG] WEEKLY 05/02/20 05:11 INR,PT,PROTHROMBIN TIME [COAG] WEEKLY 05/09/20 05:11 INR,PT,PROTHROMBIN TIME [COAG] WEEKLY 05/16/20 05:11 INR,PT,PROTHROMBIN TIME [COAG] WEEKLY 05/23/20 05:11 INR,PT,PROTHROMBIN TIME [COAG] WEEKLY 05/30/20 05:11 INR,PT,PROTHROMBIN TIME [COAG] WEEKLY - Assessment Assessment:: 65 yo male admitted to swing bed for assistance with ADL's and symptom management related to weakness/symptoms secondary to his metastatic cancer and related treatments. No longer planning any further cancer treatments. Symptoms are well controlled. - Plan Plan:: #1 Generalized weakness #2 Metastatic prostate cancer #3 Drug induced constipation - PT/OT no longer following. - No further plans for cancer treatments. - Case management is working with patient for longer term plans. At this point, patient will remain under current cares at [facility]. He is not really interested in hospice for now as he does not see the need. - Continue current anti-emetics and current pain regimen. - Continue bowel regimen PRN. #4 Hypertension #5 Diabetes #6 Hyperlipidemia #7 s/p TIA #8 Depression - Glucoses persistently low. - Therefore, insulin and metformin discontinued. - Will discontinue glucose checks. - Continue other medications. - Warfarin to be managed per anticoagulation clinic. Patient will be admitted to swing bed and will remain on swing bed indefinitely at this time given plan is for palliative care - can consider hospice if/when he is ready for this. Code status is DNR/DNI - discussed with patient on admission. No indication for VTE prophylaxis as he is on warfarin.
[2020-04-17] MEDS: ONDANSETRON 8 MG PO PRN (19:27)
[2020-04-17] MEDS: atorvaSTATin 40 MG Tab (OWN SUPPLY) PO SCH (20:12)
[2020-04-17] MEDS: WARFARIN 7.5 MG PO SCH (20:12)
[2020-04-18] MEDS: ONDANSETRON 8 MG PO PRN (04:59)
[2020-04-18] MEDS: MORPHINE 30 MG PO SCH ×2 (07:50→20:01)
[2020-04-18] MEDS: OXYBUTYNIN 5 MG PO SCH (07:50)
[2020-04-18] MEDS: Phytonadione 100 MCG Tab PO SCH (07:50)
[2020-04-18] MEDS: FLUOXETINE 20 MG PO SCH (07:50)
[2020-04-18] MEDS: PROCHLORPERAZINE 10 MG PO PRN ×2 (07:51→17:20)
[2020-04-18] MEDS: Multivitamins with Iron/Calcium/Folic Acid/Minerals Tab PO SCH (07:51)
[2020-04-18] MEDS: Cholecalciferol (Vitamin D3) 25 MCG Tab PO SCH (07:51)
[2020-04-18] MEDS: Calcium Carbonate/Vitamin D3 1250 MG-200 Unit Tab PO SCH ×2 (07:51→19:59)
[2020-04-18] MEDS: atorvaSTATin 40 MG Tab (OWN SUPPLY) PO SCH (20:00)
[2020-04-18] MEDS: WARFARIN 7.5 MG PO SCH (20:00)
[2020-04-18] MEDS: Acetaminophen 500 MG Tab PO PRN (22:16)
[2020-04-19] MEDS: Cholecalciferol (Vitamin D3) 25 MCG Tab PO SCH (08:30)
[2020-04-19] MEDS: Calcium Carbonate/Vitamin D3 1250 MG-200 Unit Tab PO SCH ×2 (08:30→19:58)
[2020-04-19] MEDS: Multivitamins with Iron/Calcium/Folic Acid/Minerals Tab PO SCH (08:31)
[2020-04-19] MEDS: Phytonadione 100 MCG Tab PO SCH (08:31)
[2020-04-19] MEDS: OXYBUTYNIN 5 MG PO SCH (08:31)
[2020-04-19] MEDS: FLUOXETINE 20 MG PO SCH (08:31)
[2020-04-19] MEDS: Polyethylene Glycol 3350 Powder 17 GM Packet PO PRN (08:32)
[2020-04-19] MEDS: PROCHLORPERAZINE 10 MG PO PRN ×2 (08:32→17:53)
[2020-04-19] MEDS: MORPHINE 30 MG PO SCH ×2 (08:38→19:59)
[2020-04-19] MEDS: ONDANSETRON 8 MG PO PRN ×2 (11:10→20:01)
[2020-04-19] MEDS: Acetaminophen 500 MG Tab PO PRN ×2 (15:03→22:34)
[2020-04-19] MEDS: WARFARIN 7.5 MG PO SCH (19:58)
[2020-04-19] MEDS: atorvaSTATin 40 MG Tab (OWN SUPPLY) PO SCH (19:59)
[2020-04-19] MEDS: Calcium Carbonate 750 MG Tab.Chew PO PRN (22:33)
[2020-04-20] MEDS: Calcium Carbonate/Vitamin D3 1250 MG-200 Unit Tab PO SCH ×2 (08:04→20:25)
[2020-04-20] MEDS: Phytonadione 100 MCG Tab PO SCH (08:04)
[2020-04-20] MEDS: MORPHINE 30 MG PO SCH ×2 (08:05→20:27)
[2020-04-20] MEDS: FLUOXETINE 20 MG PO SCH (08:07)
[2020-04-20] MEDS: PROCHLORPERAZINE 10 MG PO PRN (08:07)
[2020-04-20] MEDS: OXYBUTYNIN 5 MG PO SCH (08:08)
--- NOTE | 2020-04-20 10:52 | PCM.SN.2 ---
- Free Text/Narrative Note: Patient seen today for follow-up due to changes in status this week. He was noted to have lost 70 pounds since his last weight. He also has been more weak and has not really been able to sit up without assistance. He has been eating very poorly. Patient states his nausea and pain are controlled. He has gotten his affairs in order and does not feel he has any tasks left to complete from this regard. He is looking forward to seeing his sisters next week. He states that he knows what is coming but is just taking it 1 day at a time. Given decline over the past week, it is reasonable now to institute the compassionate care policy. It is expected he will pass away in the next month for sure, more likely in the next few weeks. Nursing and case management aware. Did discuss with the patient whether he still wants to stay at [facility] or if he would rather be home. He states he is comfortable here and he does not want to make any changes in location at this time. He would also like to continue with myself managing his medications and does not want to involve hospice at this point.
[2020-04-20] MEDS: atorvaSTATin 40 MG Tab (OWN SUPPLY) PO SCH (20:25)
[2020-04-20] MEDS: WARFARIN 7.5 MG PO SCH (20:26)
[2020-04-20] MEDS: ONDANSETRON 8 MG PO PRN (20:27)
[2020-04-21] MEDS: PROCHLORPERAZINE 10 MG PO PRN ×3 (05:19→20:24)
[2020-04-21] MEDS: Phytonadione 100 MCG Tab PO SCH (09:13)
[2020-04-21] MEDS: Calcium Carbonate/Vitamin D3 1250 MG-200 Unit Tab PO SCH ×2 (09:13→20:20)
[2020-04-21] MEDS: OXYBUTYNIN 5 MG PO SCH (09:15)
[2020-04-21] MEDS: ONDANSETRON 8 MG PO PRN (09:15)
[2020-04-21] MEDS: FLUOXETINE 20 MG PO SCH (09:15)
[2020-04-21] MEDS: MORPHINE 30 MG PO SCH ×2 (09:16→20:20)
[2020-04-21] MEDS: OXYCODONE 10 MG PO PRN ×2 (16:14→20:20)
[2020-04-21] MEDS: WARFARIN 7.5 MG PO SCH (20:21)
[2020-04-21] MEDS: atorvaSTATin 40 MG Tab (OWN SUPPLY) PO SCH (20:23)
[2020-04-22] MEDS: OXYCODONE 10 MG PO PRN ×3 (04:57→16:06)
[2020-04-22] MEDS: ONDANSETRON 8 MG PO PRN (04:57)
[2020-04-22] MEDS: PROCHLORPERAZINE 10 MG PO PRN ×2 (08:00→16:07)
[2020-04-22] MEDS: MORPHINE 30 MG PO SCH ×2 (08:01→20:18)
[2020-04-22] MEDS: OXYBUTYNIN 5 MG PO SCH (08:02)
[2020-04-22] MEDS: FLUOXETINE 20 MG PO SCH (08:02)
[2020-04-22] MEDS: Phytonadione 100 MCG Tab PO SCH (08:03)
[2020-04-22] MEDS: Calcium Carbonate/Vitamin D3 1250 MG-200 Unit Tab PO SCH ×2 (08:03→20:17)
[2020-04-22] MEDS: Calcium Carbonate 750 MG Tab.Chew PO PRN (10:23)
[2020-04-22] MEDS: atorvaSTATin 40 MG Tab (OWN SUPPLY) PO SCH (20:17)
[2020-04-22] MEDS: WARFARIN 7.5 MG PO SCH (20:17)
[2020-04-23] MEDS: OXYCODONE 10 MG PO PRN ×4 (01:04→20:15)
[2020-04-23] MEDS: ONDANSETRON 8 MG PO PRN ×2 (01:04→08:47)
[2020-04-23] MEDS: PROCHLORPERAZINE 10 MG PO PRN ×3 (06:44→20:15)
[2020-04-23 08:34] LABS: ANION GAP 11.5 mmol/L (10-20)
[2020-04-23] MEDS: MORPHINE 30 MG PO SCH ×2 (08:45→20:15)
[2020-04-23] MEDS: OXYBUTYNIN 5 MG PO SCH (08:45)
[2020-04-23] MEDS: FLUOXETINE 20 MG PO SCH (08:45)
[2020-04-23] MEDS: Phytonadione 100 MCG Tab PO SCH (08:47)
[2020-04-23] MEDS: Calcium Carbonate/Vitamin D3 1250 MG-200 Unit Tab PO SCH ×2 (08:48→20:15)
[2020-04-23] MEDS: atorvaSTATin 40 MG Tab (OWN SUPPLY) PO SCH (20:17)
[2020-04-23] MEDS: WARFARIN 7.5 MG PO SCH (20:18)
[2020-04-24] MEDS: OXYCODONE 10 MG PO PRN ×2 (04:48→17:12)
[2020-04-24] MEDS: ONDANSETRON 8 MG PO PRN ×2 (04:48→20:35)
[2020-04-24] MEDS: PROCHLORPERAZINE 10 MG PO PRN ×2 (08:59→17:12)
[2020-04-24] MEDS: Phytonadione 100 MCG Tab PO SCH (08:59)
[2020-04-24] MEDS: Calcium Carbonate/Vitamin D3 1250 MG-200 Unit Tab PO SCH ×2 (08:59→20:36)
[2020-04-24] MEDS: MORPHINE 30 MG PO SCH ×2 (09:00→20:36)
[2020-04-24] MEDS: OXYBUTYNIN 5 MG PO SCH (09:01)
[2020-04-24] MEDS: FLUOXETINE 20 MG PO SCH (09:02)
[2020-04-24] MEDS: WARFARIN 7.5 MG PO SCH (20:36)
[2020-04-24] MEDS: atorvaSTATin 40 MG Tab (OWN SUPPLY) PO SCH (20:36)
[2020-04-25] MEDS: FLUOXETINE 20 MG PO SCH (08:06)
[2020-04-25] MEDS: Phytonadione 100 MCG Tab PO SCH (08:07)
[2020-04-25] MEDS: Calcium Carbonate/Vitamin D3 1250 MG-200 Unit Tab PO SCH ×2 (08:07→20:07)
[2020-04-25] MEDS: OXYBUTYNIN 5 MG PO SCH (08:07)
[2020-04-25] MEDS: MORPHINE 30 MG PO SCH ×2 (08:08→20:09)
[2020-04-25] MEDS: PROCHLORPERAZINE 10 MG PO PRN (08:09)
[2020-04-25] MEDS: ONDANSETRON 8 MG PO PRN (17:46)
[2020-04-25] MEDS: OXYCODONE 10 MG PO PRN (17:47)
[2020-04-25] MEDS: atorvaSTATin 40 MG Tab (OWN SUPPLY) PO SCH (20:08)
[2020-04-26] MEDS: FLUOXETINE 20 MG PO SCH (08:04)
[2020-04-26] MEDS: OXYBUTYNIN 5 MG PO SCH (08:04)
[2020-04-26] MEDS: Phytonadione 100 MCG Tab PO SCH (08:04)
[2020-04-26] MEDS: PROCHLORPERAZINE 10 MG PO PRN ×2 (08:04→16:36)
[2020-04-26] MEDS: Calcium Carbonate/Vitamin D3 1250 MG-200 Unit Tab PO SCH ×2 (08:04→20:23)
[2020-04-26] MEDS: Polyethylene Glycol 3350 Powder 17 GM Packet PO PRN (08:05)
[2020-04-26] MEDS: MORPHINE 30 MG PO SCH ×2 (08:05→20:23)
[2020-04-26] MEDS: ONDANSETRON 8 MG PO PRN (13:10)
[2020-04-26] MEDS: OXYCODONE 10 MG PO PRN (13:10)
[2020-04-26] MEDS: Acetaminophen 500 MG Tab PO PRN (16:37)
[2020-04-26] MEDS: atorvaSTATin 40 MG Tab (OWN SUPPLY) PO SCH (20:24)
[2020-04-26] MEDS: WARFARIN 7.5 MG PO SCH (20:25)
[2020-04-27] MEDS: PROCHLORPERAZINE 10 MG PO PRN ×3 (00:01→16:32)
[2020-04-27] MEDS: OXYCODONE 10 MG PO PRN ×4 (00:01→16:32)
[2020-04-27] MEDS: ONDANSETRON 8 MG PO PRN ×2 (03:17→11:26)
[2020-04-27] MEDS: OLANZAPINE 5 MG PO PRN (03:44)
[2020-04-27] MEDS: Acetaminophen 500 MG Tab PO PRN (03:44)
[2020-04-27] MEDS: Phytonadione 100 MCG Tab PO SCH (07:22)
[2020-04-27] MEDS: FLUOXETINE 20 MG PO SCH (07:22)
[2020-04-27] MEDS: OXYBUTYNIN 5 MG PO SCH (07:22)
[2020-04-27] MEDS: Calcium Carbonate/Vitamin D3 1250 MG-200 Unit Tab PO SCH ×2 (07:22→19:59)
[2020-04-27] MEDS: MORPHINE 30 MG PO SCH ×2 (07:23→19:59)
[2020-04-27] MEDS: PROCHLORPERAZINE 10 MG PO SCH (18:09)
[2020-04-27] MEDS: WARFARIN 7.5 MG PO SCH (19:59)
[2020-04-27] MEDS: atorvaSTATin 40 MG Tab (OWN SUPPLY) PO SCH (19:59)
[2020-04-27] MEDS: ONDANSETRON 8 MG PO SCH (20:03)
[2020-04-27] MEDS: OLANZAPINE 5 MG PO SCH (20:04)
[2020-04-28] MEDS: PROCHLORPERAZINE 10 MG PO SCH ×4 (01:20→18:30)
[2020-04-28] MEDS: OXYCODONE 10 MG PO PRN ×4 (01:20→15:43)
[2020-04-28] MEDS: Phytonadione 100 MCG Tab PO SCH (08:14)
[2020-04-28] MEDS: Calcium Carbonate/Vitamin D3 1250 MG-200 Unit Tab PO SCH ×2 (08:14→19:29)
[2020-04-28] MEDS: OXYBUTYNIN 5 MG PO SCH (08:15)
[2020-04-28] MEDS: MORPHINE 30 MG PO SCH ×2 (08:15→19:28)
[2020-04-28] MEDS: FLUOXETINE 20 MG PO SCH (08:15)
[2020-04-28] MEDS: ONDANSETRON 8 MG PO SCH ×3 (08:16→19:30)
[2020-04-28] MEDS: atorvaSTATin 40 MG Tab (OWN SUPPLY) PO SCH (19:29)
[2020-04-28] MEDS: WARFARIN 7.5 MG PO SCH (19:29)
[2020-04-28] MEDS: OLANZAPINE 5 MG PO SCH (19:30)
[2020-04-29] MEDS: PROCHLORPERAZINE 10 MG PO SCH ×4 (02:13→18:44)
[2020-04-29] MEDS: Phytonadione 100 MCG Tab PO SCH (07:38)
[2020-04-29] MEDS: Calcium Carbonate/Vitamin D3 1250 MG-200 Unit Tab PO SCH ×2 (07:38→19:28)
[2020-04-29] MEDS: FLUOXETINE 20 MG PO SCH (07:39)
[2020-04-29] MEDS: ONDANSETRON 8 MG PO SCH ×3 (07:39→19:30)
[2020-04-29] MEDS: OXYBUTYNIN 5 MG PO SCH (07:39)
[2020-04-29] MEDS: MORPHINE 30 MG PO SCH ×2 (07:39→19:30)
[2020-04-29] MEDS: OXYCODONE 10 MG PO PRN ×2 (11:31→18:44)
[2020-04-29] MEDS: atorvaSTATin 40 MG Tab (OWN SUPPLY) PO SCH (19:29)
[2020-04-29] MEDS: WARFARIN 7.5 MG PO SCH (19:29)
[2020-04-29] MEDS: OLANZAPINE 5 MG PO SCH (19:30)
[2020-04-30] MEDS: PROCHLORPERAZINE 10 MG PO SCH ×4 (00:15→17:32)
[2020-04-30] MEDS: Phytonadione 100 MCG Tab PO SCH (09:20)
[2020-04-30] MEDS: Calcium Carbonate/Vitamin D3 1250 MG-200 Unit Tab PO SCH ×2 (09:20→19:14)
[2020-04-30] MEDS: FLUOXETINE 20 MG PO SCH (09:21)
[2020-04-30] MEDS: OXYBUTYNIN 5 MG PO SCH (09:21)
[2020-04-30] MEDS: MORPHINE 30 MG PO SCH ×2 (09:22→19:16)
[2020-04-30] MEDS: ONDANSETRON 8 MG PO SCH (09:22)
[2020-04-30] MEDS: Ondansetron 4 MG Tab.DIS PO SCH ×3 (10:46→21:10)
[2020-04-30] MEDS: atorvaSTATin 40 MG Tab (OWN SUPPLY) PO SCH (19:20)
[2020-04-30] MEDS: WARFARIN 7.5 MG PO SCH (19:21)
[2020-04-30] MEDS: OLANZAPINE 5 MG PO SCH (21:18)
[2020-05-01] MEDS: Acetaminophen 500 MG Tab PO PRN ×2 (05:17→13:58)
[2020-05-01] MEDS: PROCHLORPERAZINE 10 MG PO SCH ×4 (05:17→17:00)
[2020-05-01] MEDS: Ondansetron 4 MG Tab.DIS PO SCH ×2 (08:23→11:20)
[2020-05-01] MEDS: Phytonadione 100 MCG Tab PO SCH (08:23)
[2020-05-01] MEDS: Calcium Carbonate/Vitamin D3 1250 MG-200 Unit Tab PO SCH ×2 (08:23→20:46)
[2020-05-01] MEDS: Polyethylene Glycol 3350 Powder 17 GM Packet PO PRN (08:23)
[2020-05-01] MEDS: FLUOXETINE 20 MG PO SCH (08:24)
[2020-05-01] MEDS: OXYBUTYNIN 5 MG PO SCH (08:24)
[2020-05-01] MEDS: MORPHINE 30 MG PO SCH ×2 (08:25→20:46)
[2020-05-01] MEDS: OXYCODONE 10 MG PO PRN ×2 (11:21→16:54)
[2020-05-01] MEDS: WARFARIN 7.5 MG PO SCH (20:46)
[2020-05-01] MEDS: atorvaSTATin 40 MG Tab (OWN SUPPLY) PO SCH (20:46)
[2020-05-01] MEDS: OLANZAPINE 5 MG PO SCH (20:47)
[2020-05-01] MEDS: ONDANSETRON 8 MG PO SCH (20:48)
[2020-05-02] MEDS: PROCHLORPERAZINE 10 MG PO SCH ×4 (01:06→17:00)
[2020-05-02] MEDS: OXYCODONE 10 MG PO PRN ×3 (03:06→16:55)
[2020-05-02 04:05] VITALS: BP 140/85; PULSE 96
[2020-05-02] MEDS: OXYBUTYNIN 5 MG PO SCH (08:13)
[2020-05-02] MEDS: Phytonadione 100 MCG Tab PO SCH (08:13)
[2020-05-02] MEDS: Calcium Carbonate/Vitamin D3 1250 MG-200 Unit Tab PO SCH (08:13)
[2020-05-02] MEDS: FLUOXETINE 20 MG PO SCH (08:14)
[2020-05-02] MEDS: ONDANSETRON 8 MG PO SCH ×2 (08:14→11:11)
[2020-05-02] MEDS: MORPHINE 30 MG PO SCH (08:15)
--- NOTE | 2020-05-02 17:19 | PCM.SN.2 ---
- Free Text/Narrative Note: Spoke with patient's sisters this afternoon. Patient seems to have had more confusion and tiredness over the past 2 days. Also had a fever yesterday. Suspect he is now in the actively dying stages. Discussed with them that I would not expect him to live longer than another 48-72 hours but that this is variable depending on each individual person. Goal of care is strictly comfort. Given he is now in the active stages of dying, will d/c all medications that are not for symptom management. His sisters voice understanding and are in agreement with this plan. My condolences are offered in this difficult time.
[2020-05-02] MEDS ORDERED: LORazepam Conc Solution 2 MG/ML 30 ML Bottle PO PRN (17:20)
[2020-05-02] MEDS ORDERED: Atropine 1% Ophth Soln 5 ML BOTTLE SL PRN (17:26)
[2020-05-02] MEDS: Morphine Oral Concentrate 20 MG/ML 30 ML Bottle SL PRN (19:59)
[2020-05-03] MEDS: Morphine Oral Concentrate 20 MG/ML 30 ML Bottle SL PRN ×3 (00:10→09:21)
[2020-05-03] MEDS ORDERED: ATROPINE 1% SL PRN (11:01)
[2020-05-03] MEDS: Morphine Oral Concentrate 20 MG/ML (OWN SUPPLY) SL PRN ×2 (14:47→20:05)
[2020-05-04] MEDS: Morphine Oral Concentrate 20 MG/ML (OWN SUPPLY) SL PRN ×3 (01:43→13:56)
[2020-05-05] MEDS: Morphine Oral Concentrate 20 MG/ML (OWN SUPPLY) SL PRN ×2 (08:58→18:14)
--- NOTE | 2020-05-05 10:56 | PCM.SN.2 ---
- Free Text/Narrative Note: Checked on patient. Sisters at bedside. Mentation has been fluctuating. Symptoms overall controlled. Wondering about something for nausea that is not lorazepam to limit sedation. Will decrease lorazepam dose and also add zofran back.
[2020-05-06] MEDS: Morphine Oral Concentrate 20 MG/ML (OWN SUPPLY) SL PRN ×5 (00:21→22:29)
[2020-05-06] MEDS: LORazepam Conc Solution 2 MG/ML 30 ML Bottle PO PRN (15:49)
[2020-05-07] MEDS: LORazepam Conc Solution 2 MG/ML 30 ML Bottle PO PRN ×4 (01:24→23:08)
[2020-05-07] MEDS: Morphine Oral Concentrate 20 MG/ML (OWN SUPPLY) SL PRN (05:32)
[2020-05-07] MEDS ORDERED: Morphine Oral Concentrate 20 MG/ML 30 ML Bottle SL PRN (08:33)
[2020-05-07] MEDS ORDERED: LORazepam Conc Solution 2 MG/ML 30 ML Bottle PO PRN (08:33)
[2020-05-07] MEDS: Morphine Oral Concentrate 20 MG/ML 30 ML Bottle SL PRN ×3 (12:16→21:12)
[2020-05-08] MEDS: Morphine Oral Concentrate 20 MG/ML 30 ML Bottle SL PRN ×5 (03:33→23:42)
[2020-05-08] MEDS: LORazepam Conc Solution 2 MG/ML 30 ML Bottle PO PRN ×4 (07:56→23:46)
[2020-05-09] MEDS: Morphine Oral Concentrate 20 MG/ML 30 ML Bottle SL PRN ×2 (03:49→08:22)
[2020-05-09] MEDS: LORazepam Conc Solution 2 MG/ML 30 ML Bottle PO PRN (08:23)
[2020-05-09] MEDS: LORAZEPAM 2 MG/ML PO PRN ×3 (10:53→14:56)
[2020-05-09] MEDS: Morphine Oral Concentrate 20 MG/ML (OWN SUPPLY) SL PRN ×3 (10:53→14:56)
[2020-05-10] MEDS: LORAZEPAM 2 MG/ML PO PRN ×4 (02:32→17:25)
[2020-05-10] MEDS: Morphine Oral Concentrate 20 MG/ML (OWN SUPPLY) SL PRN ×4 (02:32→17:23)
[2020-05-11] MEDS: Morphine Oral Concentrate 20 MG/ML (OWN SUPPLY) SL PRN ×3 (08:05→18:49)
[2020-05-11] MEDS: LORAZEPAM 2 MG/ML PO PRN ×2 (14:23→18:49)
[2020-05-11] MEDS ORDERED: Sodium Chloride 0.9% 1,000 ML IV SCH (15:15)
[2020-05-12] MEDS: LORAZEPAM 2 MG/ML PO PRN ×2 (07:39→15:18)
--- NOTE | 2020-05-12 13:42 | PCM.PN ---
- General Info Date of Service: 05/12/20 Subjective Update: 65 yo male seen today for swing bed follow-up. Sisters at bedside. Patient is resting comfortably in bed. They feel his symptoms are well controlled. They do not feel he is in pain or having any nausea. His medications seem to be working well. - Review of Systems Systems Review Comment:: Unable to assess as patient is unresponsive. - Patient Data Vitals - Most Recent: Last Vital Signs Temp 36.9 C 05/02/20 04:03 Pulse 96 05/02/20 04:03 Resp 20 05/02/20 04:03 BP 140/85 05/02/20 04:03 Pulse Ox 92 L 05/10/20 08:15 Weight - Most Recent: 98.339 kg I&O - Last 24 Hours: Intake & Output 05/11/20 05/12/20 05/12/20 22:59 06:59 14:59 Intake Total 0 Balance 0 Med Orders - Current: Current Medications Atropine Sulfate (Atropine 1% Ophth Soln) 0 ml SL Q2H PRN PRN Reason: Copius Secretions Lorazepam (Ativan) 1 mg PO Q1H PRN PRN Reason: Anxiety Last Admin: 05/12/20 07:39 Dose: 1 mg Documented by: Morphine Sulfate (Morphine 20 Mg/Ml Soln) 7.5 mg SL Q1H PRN PRN Reason: Pain Last Admin: 05/11/20 18:49 Dose: 1 each Documented by: Ondansetron HCl (Zofran Odt) 4 mg PO Q6H PRN PRN Reason: Nausea/Vomiting Last Admin: 05/06/20 22:48 Dose: 4 mg Documented by: Discontinued Medications Acetaminophen (Tylenol Extra Strength) 500 mg PO Q4H PRN PRN Reason: Pain (mild 1-3) Last Admin: 05/01/20 13:58 Dose: 500 mg Documented by: Acetaminophen/Diphenhydramine HCl (Tylenol Pm Extra Strength) 2 tab PO BEDTIME PRN PRN Reason: Sleep Atorvastatin Calcium (Lipitor) 40 mg PO BEDTIME KENZIE Last Admin: 05/01/20 20:46 Dose: 40 mg Documented by: Atorvastatin Calcium (Lipitor) 40 mg PO BEDTIME KENZIE Last Admin: 04/03/20 20:46 Dose: 40 mg Documented by: Atropine Sulfate (Atropine 1% Ophth Soln) 0 ml SL Q2H PRN PRN Reason: Copius Secretions Calcium Carbonate (Calcium Carbonate/Vitamin D 1250 Mg-200 Unit) 1 tab PO BID [facility] Last Admin: 05/02/20 08:13 Dose: Not Given Documented by: Calcium Carbonate/Glycine (Tums Extra Strength) 750 mg PO Q2H PRN PRN Reason: Dyspepsia Last Admin: 04/22/20 10:23 Dose: 750 mg Documented by: Cholecalciferol (Vitamin D3) 50 mcg PO DAILY [facility] Last Admin: 04/19/20 08:30 Dose: 50 mcg Documented by: Fluoxetine HCl (Prozac) 40 mg PO DAILY [facility] Last Admin: 05/02/20 08:14 Dose: 40 mg Documented by: Fluoxetine HCl (Prozac) 40 mg PO DAILY [facility] Last Admin: 04/04/20 09:15 Dose: 40 mg Documented by: Sodium Chloride (Normal Saline) 1,000 mls @ 50 mls/hr IV ASDIRECTED [facility] Lisinopril (Prinivil) 20 mg PO DAILY [facility] Last Admin: 04/03/20 08:16 Dose: Not Given Documented by: Lorazepam (Ativan) 1 mg PO DAILY PRN PRN Reason: Anxiety Last Admin: 04/25/20 02:54 Dose: 1 mg Documented by: Lorazepam (Ativan) 1 mg PO Q8H PRN PRN Reason: agitation/anxiety Lorazepam (Ativan) 1 mg PO Q8H PRN PRN Reason: agitation/anxiety Last Admin: 05/04/20 21:14 Dose: 1 mg Documented by: Lorazepam (Ativan) 0.5 mg PO Q8H PRN PRN Reason: agitation/anxiety Last Admin: 05/07/20 01:24 CDT Dose: 0.5 mg Documented by: Lorazepam (Ativan) 1 mg PO Q4H PRN PRN Reason: agitation/anxiety Last Admin: 05/07/20 08:44 Dose: 1 mg Documented by: Lorazepam (Ativan) 1 mg PO Q2H PRN PRN Reason: Anxiety Last Admin: 05/09/20 08:23 Dose: 1 mg Documented by: Lorazepam (Ativan) 1 mg PO DAILY PRN PRN Reason: Anxiety Magnesium Hydroxide (Milk Of Magnesia) 30 ml PO BID PRN PRN Reason: Constipation Last Admin: 04/19/20 15:04 Dose: 30 ml Documented by: Metformin HCl (Glucophage) 1,000 mg PO BIDMEALS [facility] Last Admin: 04/17/20 08:15 Dose: 1,000 mg Documented by: Metformin HCl (Glucophage) 1,000 mg PO BIDMEALS [facility] Last Admin: 04/04/20 09:15 Dose: 1,000 mg Documented by: Morphine Sulfate (Ms Contin) 30 mg PO BID [facility] Last Admin: 05/02/20 08:15 Dose: 30 mg Documented by: Morphine Sulfate (Morphine 20 Mg/Ml Soln) 5 mg SL Q4H PRN PRN Reason: Pain Last Admin: 05/03/20 09:21 Dose: 5 mg Documented by: Morphine Sulfate (Morphine 20 Mg/Ml Soln) 5 mg SL Q4H PRN PRN Reason: Pain Last Admin: 05/07/20 05:32 Dose: 5 mg Documented by: Morphine Sulfate (Morphine 20 Mg/Ml Soln) 7.5 mg SL Q4H PRN PRN Reason: Pain Last Admin: 05/07/20 08:47 Dose: 7.5 mg Documented by: Morphine Sulfate (Morphine 20 Mg/Ml Soln) 7.5 mg SL Q2H PRN PRN Reason: Pain Last Admin: 05/09/20 08:22 Dose: 7.5 mg Documented by: Morphine Sulfate (Ms Contin) 30 mg PO BID [facility] Last Admin: 04/04/20 09:16 Dose: 30 mg Documented by: Multivitamins/Minerals (Thera M Plus) 1 tab PO DAILY [facility] Last Admin: 04/19/20 08:31 Dose: 1 tab Documented by: Naproxen (Naproxen Sodium) 220 mg PO DAILY PRN PRN Reason: Pain Non-Formulary Medication (Insulin Degludec [Tresiba]) 0 unit SQ BEDTIME [facility] Last Admin: 04/01/20 20:34 Dose: 50 unit Documented by: Non-Formulary Medication (Insulin Degludec [Tresiba]) 0 unit SQ BEDTIME [facility] Last Admin: 04/03/20 20:47 Dose: Not Given Documented by: Leonelsiba Own Med 0 unit SQ BEDTIME [facility] Last Admin: 04/15/20 20:18 Dose: 30 unit Documented by: Warfarin 3.75mg (1/2 (X 7.5mg Tab)) 0 each PO MO@1999 [facility] Last Admin: 04/10/20 20:47 Dose: 1 each Documented by: Warfarin 7.5mg (Own (Supply)) 0 each PO SUTUWETHFRSA@1999 [facility] Last Admin: 04/09/20 21:00 Dose: 1 each Documented by: Ondansetron 8mg (Own (Supply)) 1 each PO TID PRN PRN Reason: Nausea Last Admin: 04/27/20 11:26 Dose: 1 each Documented by: Oxycodone 10mg (Own (Supply)) 1 each PO Q6H PRN PRN Reason: Pain (moderate 4-6) Last Admin: 04/21/20 12:25 Dose: 1 each Documented by: Prochlorperazine 10mg Tab (Own Supply ) 1 each PO QID PRN PRN Reason: nausea/vomiting Last Admin: 04/27/20 16:32 Dose: 1 each Documented by: Warfarin 11.25mg (1 (& 1/2 X 7.5mg Tab)) 0 each PO ONETIME ONE Stop: 04/11/20 20:01 Last Admin: 04/11/20 20:17 Dose: 11.25 each Documented by: Warfarin 7.5mg (Own (Supply)) 0 each PO BEDTIME [facility] Last Admin: 04/24/20 20:36 Dose: 1 each Documented by: Oxycodone 10 Mg (Own (Supply)) 1 each PO Q4H PRN PRN Reason: Pain (moderate 4-6) Last Admin: 05/02/20 16:55 Dose: 1 each Documented by: Warfarin 7.5mg (Own (Supply)) 0 each PO SuMoWeThFrSa@1999 [facility] Last Admin: 05/01/20 20:46 Dose: 1 each Documented by: Warfarin 3.75mg (1/2 (X 7.5mg Tab)) 1 each PO Tu@1999 [facility] Last Admin: 04/25/20 20:08 Dose: 1 each Documented by: Ondansetron 8mg Tab (Own Med) 0 each PO TID [facility] Last Admin: 04/30/20 09:22 Dose: 1 each Documented by: Prochlorperazine 10mg Tab Own Med* * 0 each PO 0000,0600,1200,1800 [facility] Last Admin: 05/02/20 17:00 Dose: 1 each Documented by: Ondansetron 8mg Tab ((Own Supply)) 1 each PO TID [facility] Last Admin: 05/02/20 11:11 Dose: 1 each Documented by: Insulin Degludec [ Tresiba] (Own Supply ) 0 unit SQ BEDTIME [facility] Last Admin: 03/22/20 19:54 Dose: 54 unit Documented by: Spencer Celaya To (Monitor Inrs) 1 each .XX ASDIRECTED PRN PRN Reason: other Olanzapine (Zyprexa) 5 mg PO BEDTIME PRN PRN Reason: Nausea Last Admin: 04/27/20 03:44 Dose: 5 mg Documented by: Olanzapine (Zyprexa) 5 mg PO BEDTIME [facility] Last Admin: 05/01/20 20:47 Dose: 5 mg Documented by: Olanzapine (Zyprexa) 5 mg PO BEDTIME PRN PRN Reason: Nausea Ondansetron HCl (Zofran Odt) 8 mg PO TID PRN PRN Reason: Nausea Ondansetron HCl (Zofran Odt) 8 mg PO TID [facility] Last Admin: 05/01/20 11:20 Dose: 8 mg Documented by: Ondansetron HCl (Zofran Odt) 8 mg PO TID PRN PRN Reason: Nausea Last Admin: 04/04/20 11:31 Dose: 8 mg Documented by: Oxybutynin Chloride (Oxybutynin Er) 5 mg PO DAILY [facility] Last Admin: 05/02/20 08:13 Dose: 5 mg Documented by: Oxybutynin Chloride (Oxybutynin Er) 5 mg PO DAILY [facility] Last Admin: 04/04/20 09:15 Dose: 5 mg Documented by: Oxycodone HCl (Oxycodone) 10 mg PO Q6H PRN PRN Reason: Pain (moderate 4-6) Oxycodone HCl (Oxycodone) 10 mg PO Q6H PRN PRN Reason: Pain (moderate 4-6) Last Admin: 03/31/20 06:10 Dose: 10 mg Documented by: Phytonadione (Vitamin K) 100 mcg PO DAILY [facility] Last Admin: 05/02/20 08:13 Dose: 100 mcg Documented by: Polyethylene Glycol (Miralax) 17 gm PO BID PRN PRN Reason: Constipation Last Admin: 05/01/20 08:23 Dose: 17 gm Documented by: Polyethylene Glycol (Miralax) 17 gm PO BID [facility] Last Admin: 03/27/20 08:35 Dose: Not Given Documented by: Prochlorperazine Maleate (Compazine) 10 mg PO QID PRN PRN Reason: Nausea Prochlorperazine Maleate (Compazine) 10 mg PO QID PRN PRN Reason: Nausea Last Admin: 04/04/20 09:16 Dose: 10 mg Documented by: Senna/Docusate Sodium (Senna Plus) 1 tab PO BID PRN PRN Reason: Constipation Last Admin: 05/01/20 08:23 Dose: 1 tab Documented by: Warfarin Sodium (Coumadin) 3.75 mg PO MoFr@1999 [facility] Last Admin: 03/27/20 22:06 Dose: 3.75 mg Documented by: Warfarin Sodium (Coumadin) 5 mg PO MO@1999 [facility] Last Admin: 04/03/20 20:46 Dose: 5 mg Documented by: Warfarin Sodium (Coumadin) 7.5 mg PO SUTUWETHFRSA@1999 [facility] Last Admin: 04/02/20 19:54 Dose: 7.5 mg Documented by: Warfarin Sodium (Coumadin) 3.75 mg PO MoFr@1999 [facility] Last Admin: 03/28/20 01:23 Dose: Not Given Documented by: Warfarin Sodium (Coumadin) 7.5 mg PO SuTuWeThSa@1999 [facility] Last Admin: 03/26/20 19:49 Dose: 7.5 mg Documented by: - Exam General: No Acute Distress HEENT: Mucous Membr. Moist/[place] Lungs: Clear to Auscultation, Normal Respiratory Effort Cardiovascular: No Murmurs, Irregular Rhythm, Tachycardia GI/Abdominal Exam: Normal Bowel Sounds, Soft, Non-Tender, No Distention, No Mass Extremities: Non-Tender, Normal Capillary Refill Peripheral Pulses: 2+: Radial (L), Radial (R) Skin: Warm, Dry, Intact Sepsis Event Note - Evaluation Sepsis Screening Result: No Definite Risk - Problem List & Annotations (1) Palliative care patient SNOMED Code(s): 331505803, 954952871 Code(s): Z51.5 - ENCOUNTER FOR PALLIATIVE CARE Status: Acute Current Visit: Yes (2) Need for comfort care SNOMED Code(s): 563134884, 620851551 Code(s): VPV9575 - Status: Acute Current Visit: Yes (3) Generalized weakness SNOMED Code(s): 40996485 Code(s): R53.1 - WEAKNESS Status: Acute Current Visit: No (4) Prostate cancer metastatic to bone SNOMED Code(s): 238535770 Code(s): C61 - MALIGNANT NEOPLASM OF PROSTATE; C79.51 - SECONDARY MALIGNANT NEOPLASM OF BONE Status: Chronic Current Visit: No (5) Constipation SNOMED Code(s): 31401752 Code(s): K59.00 - CONSTIPATION, UNSPECIFIED Status: Acute Current Visit: No Qualifiers: Constipation type: drug induced constipation Qualified Code(s): K59.03 - Drug induced constipation (6) Hypertension SNOMED Code(s): 34184736 Code(s): I10 - ESSENTIAL (PRIMARY) HYPERTENSION Status: Chronic Current Visit: No Qualifiers: Hypertension type: essential hypertension Qualified Code(s): I10 - Essential (primary) hypertension (7) Diabetes SNOMED Code(s): 21664118 Code(s): E11.9 - TYPE 2 DIABETES MELLITUS WITHOUT COMPLICATIONS Status: Chronic Current Visit: No Qualifiers: Diabetes mellitus type: type 2 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: with longterm use Diabetes mellitus complication status: without complication Qualified Code(s): E11.9 - Type 2 diabetes mellitus without complications; Z79.4 - correction (current) use of insulin (8) Hyperlipidemia SNOMED Code(s): 77341725 Code(s): E78.5 - HYPERLIPIDEMIA, UNSPECIFIED Status: Chronic Current Visit: No Qualifiers: Hyperlipidemia type: unspecified Qualified Code(s): E78.5 - Hyperlipidemia, unspecified (9) Hx TIA/stroke w/o resid SNOMED Code(s): 389890553, 315889907, 019237351 Code(s): Z86.73 - PRSNL HX OF TIA (TIA), AND CEREB INFRC W/O RESID DEFICITS Status: Chronic Current Visit: No (10) Depression SNOMED Code(s): 19763495 Code(s): F32.9 - MAJOR DEPRESSIVE DISORDER, SINGLE EPISODE, UNSPECIFIED Status: Chronic Current Visit: No Qualifiers: Depression Type: unspecified Qualified Code(s): F32.9 - Major depressive disorder, single episode, unspecified - Problem List Review Problem List Initiated/Reviewed/Updated: Yes - Assessment Assessment:: 65 yo male admitted to swing bed for assistance with ADL's and symptom management related to weakness/symptoms secondary to his metastatic cancer and related treatments. He is now on comfort cares and his symptoms are well controlled. Sisters have been at bedside. - Plan Plan:: #1 Comfort Cares #2 Palliative Care patient #3 Metastatic prostate cancer - Have stopped all medications besides those for comfort. - Symptoms are well controlled at this point. - Anticipate patient to pass away within the next week for sure, likely more on the order of 1-2 days. - He can eat/drink ad jose armando. - No indication for VTE prophylaxis. - He will remain on swing bed until his .
[2020-05-12] MEDS: Morphine Oral Concentrate 20 MG/ML (OWN SUPPLY) SL PRN ×2 (15:18→21:51)
[2020-05-13] MEDS: Morphine Oral Concentrate 20 MG/ML (OWN SUPPLY) SL PRN ×9 (01:00→23:27)
[2020-05-13] MEDS: LORAZEPAM 2 MG/ML PO PRN ×7 (04:44→23:27)
[2020-05-14] MEDS: Morphine Oral Concentrate 20 MG/ML (OWN SUPPLY) SL PRN ×2 (03:44→05:33)
[2020-05-14] MEDS: LORAZEPAM 2 MG/ML PO PRN ×2 (03:44→05:33)
--- NOTE | 2020-05-14 09:38 | PCM.DCSUM1 ---
Discharge Summary - Hospital Course Diagnosis: Stroke: No Modified Andrea Scale: No Symptoms at All Modified Andrea Scale Score: 0 - Discharge Data Discharge Date: 05/14/20 Discharge Disposition: 20 Condition: - Referral to Home Health Primary Care Physician: Sara Malin MD - Patient Summary/Data Consults: Consultations 03/20/20 10:02 OT Evaluation and Treatment [CONS] Routine PT Evaluation and Treatment [CONS] Routine - Discharge Plan *PRESCRIPTION DRUG MONITORING PROGRAM REVIEWED*: Not Applicable *COPY OF PRESCRIPTION DRUG MONITORING REPORT IN PATIENT VIELKA: Not Applicable Home Medications: Home Meds Acetaminophen [Tylenol Extra Strength] 500 - 1,000 mg PO Q4H PRN 11/03/14 [History] Acetaminophen/Diphenhydramine [Tylenol Pm Ex-Strength Caplet] 2 each PO BEDTIME PRN 11/03/14 [History] Cholecalciferol (Vitamin D3) [Vitamin D3] 2,000 unit PO DAILY 11/03/14 [History] FLUoxetine [PROzac] 40 mg PO DAILY 11/03/14 [History] Multivit,Calc,Mins/Iron/Folic [Thera-M] 1 tab PO DAILY 11/03/14 [History] Calcium Carbonate/Vitamin D3 [Os-Everett 500+D] 1 each PO BID 11/29/19 [History] LORazepam [Ativan] 1 mg PO DAILY PRN 11/29/19 [History] atorvaSTATin [Lipitor] 40 mg PO BEDTIME 11/29/19 [History] Docusate Sodium/Sennosides [Senna Plus] 1 tab PO BID PRN 03/06/20 [History] Morphine [MS Contin] 30 mg PO BID 03/06/20 [History] Naproxen Sodium [Aleve] 220 - 440 mg PO DAILY PRN 03/06/20 [History] OLANZapine [Zyprexa] 5 mg PO BEDTIME PRN 03/06/20 [History] Ondansetron [Zofran] 8 mg PO TID PRN 03/06/20 [History] Oxybutynin [Oxybutynin ER] 5 mg PO DAILY 03/06/20 [History] Phytonadione [Vitamin K] 100 mcg PO DAILY 03/06/20 [History] Prochlorperazine Maleate [Compazine] 10 mg PO QID PRN 03/06/20 [History] lisinopriL [Lisinopril] 20 mg PO DAILY 03/06/20 [History] metFORMIN [Glucophage XR] 1,000 mg PO BID 03/06/20 [History] oxyCODONE HCl [Oxycodone HCL] 10 mg PO Q6H PRN 03/06/20 [History] Insulin Degludec [Tresiba] 54 unit SQ DAILY #0 03/16/20 [Rx] Warfarin [Coumadin] 3.75 mg PO MoFr@1999 tablet 03/16/20 [Rx] Warfarin [Coumadin] 7.5 mg PO SuTuWeThSa@1999 tablet 03/16/20 [Rx] polyethylene glycoL 3350 [MiraLAX] 17 gm PO BID packet 03/16/20 [Rx] - Discharge Summary/Plan Comment DC Time >30 min.: No Discharge Summary/Plan Comment: Patient will be discharged to home. [facility] [facility] will recover eyes. Staff may release body when ready. Patient at 06:00 am on 05/14/2020. - General Info Date of Service: 05/14/20 Admission Dx/Problem (Free Text: Admission Diagnosis/Problem Admission Diagnosis/Problem Weakness Subjective Update: 65 yo male seen today for swing bed follow-up. Sisters at bedside. Patient is resting comfortably in bed. They feel his symptoms are well controlled. They do not feel he is in pain or having any nausea. His medications seem to be working well. - Review of Systems Systems Review Comment: Unable to obtain - Patient Data Vitals - Most Recent: Last Vital Signs Temp 98.4 F 05/02/20 04:03 Pulse 96 05/02/20 04:03 Resp 20 05/02/20 04:03 BP 140/85 05/02/20 04:03 Pulse Ox 92 L 05/13/20 20:00 Weight - Most Recent: 216 lb 12.8 oz Med Orders - Current: Current Medications Discontinued Medications Acetaminophen (Tylenol Extra Strength) 500 mg PO Q4H PRN PRN Reason: Pain (mild 1-3) Last Admin: 05/01/20 13:58 Dose: 500 mg Documented by: Acetaminophen/Diphenhydramine HCl (Tylenol Pm Extra Strength) 2 tab PO BEDTIME PRN PRN Reason: Sleep Atorvastatin Calcium (Lipitor) 40 mg PO BEDTIME KENZIE Last Admin: 05/01/20 20:46 Dose: 40 mg Documented by: Atorvastatin Calcium (Lipitor) 40 mg PO BEDTIME [facility] Last Admin: 04/03/20 20:46 Dose: 40 mg Documented by: Atropine Sulfate (Atropine 1% Ophth Soln) 0 ml SL Q2H PRN PRN Reason: [employer] Atropine Sulfate (Atropine 1% Ophth Soln) 0 ml SL Q2H PRN PRN Reason: [employer] Last Admin: 05/14/20 01:58 Dose: 0.33 ml Documented by: Calcium Carbonate (Calcium Carbonate/Vitamin D 1250 Mg-200 Unit) 1 tab PO BID [facility] Last Admin: 05/02/20 08:13 Dose: Not Given Documented by: Calcium Carbonate/Glycine (Tums Extra Strength) 750 mg PO Q2H PRN PRN Reason: Dyspepsia Last Admin: 04/22/20 10:23 Dose: 750 mg Documented by: Cholecalciferol (Vitamin D3) 50 mcg PO DAILY [facility] Last Admin: 04/19/20 08:30 Dose: 50 mcg Documented by: Fluoxetine HCl (Prozac) 40 mg PO DAILY [facility] Last Admin: 05/02/20 08:14 Dose: 40 mg Documented by: Fluoxetine HCl (Prozac) 40 mg PO DAILY [facility] Last Admin: 04/04/20 09:15 Dose: 40 mg Documented by: Sodium Chloride (Normal Saline) 1,000 mls @ 50 mls/hr IV ASDIRECTED [facility] Lisinopril (Prinivil) 20 mg PO DAILY [facility] Last Admin: 04/03/20 08:16 Dose: Not Given Documented by: Lorazepam (Ativan) 1 mg PO DAILY PRN PRN Reason: Anxiety Last Admin: 04/25/20 02:54 Dose: 1 mg Documented by: Lorazepam (Ativan) 1 mg PO Q8H PRN PRN Reason: agitation/anxiety Lorazepam (Ativan) 1 mg PO Q8H PRN PRN Reason: agitation/anxiety Last Admin: 05/04/20 21:14 Dose: 1 mg Documented by: Lorazepam (Ativan) 0.5 mg PO Q8H PRN PRN Reason: agitation/anxiety Last Admin: 05/07/20 01:24 CDT Dose: 0.5 mg Documented by: Lorazepam (Ativan) 1 mg PO Q4H PRN PRN Reason: agitation/anxiety Last Admin: 05/07/20 08:44 Dose: 1 mg Documented by: Lorazepam (Ativan) 1 mg PO Q2H PRN PRN Reason: Anxiety Last Admin: 05/09/20 08:23 Dose: 1 mg Documented by: Lorazepam (Ativan) 1 mg PO Q1H PRN PRN Reason: Anxiety Last Admin: 05/14/20 05:33 Dose: 1 mg Documented by: Lorazepam (Ativan) 1 mg PO DAILY PRN PRN Reason: Anxiety Magnesium Hydroxide (Milk Of Magnesia) 30 ml PO BID PRN PRN Reason: Constipation Last Admin: 04/19/20 15:04 Dose: 30 ml Documented by: Metformin HCl (Glucophage) 1,000 mg PO BIDMEALS [facility] Last Admin: 04/17/20 08:15 Dose: 1,000 mg Documented by: Metformin HCl (Glucophage) 1,000 mg PO BIDMEALS [facility] Last Admin: 04/04/20 09:15 Dose: 1,000 mg Documented by: Morphine Sulfate (Ms Contin) 30 mg PO BID [facility] Last Admin: 05/02/20 08:15 Dose: 30 mg Documented by: Morphine Sulfate (Morphine 20 Mg/Ml Soln) 5 mg SL Q4H PRN PRN Reason: Pain Last Admin: 05/03/20 09:21 Dose: 5 mg Documented by: Morphine Sulfate (Morphine 20 Mg/Ml Soln) 5 mg SL Q4H PRN PRN Reason: Pain Last Admin: 05/07/20 05:32 Dose: 5 mg Documented by: Morphine Sulfate (Morphine 20 Mg/Ml Soln) 7.5 mg SL Q4H PRN PRN Reason: Pain Last Admin: 05/07/20 08:47 Dose: 7.5 mg Documented by: Morphine Sulfate (Morphine 20 Mg/Ml Soln) 7.5 mg SL Q2H PRN PRN Reason: Pain Last Admin: 05/09/20 08:22 Dose: 7.5 mg Documented by: Morphine Sulfate (Morphine 20 Mg/Ml Soln) 7.5 mg SL Q1H PRN PRN Reason: Pain Last Admin: 05/14/20 05:33 Dose: 1 each Documented by: Morphine Sulfate (Ms Contin) 30 mg PO BID [facility] Last Admin: 04/04/20 09:16 Dose: 30 mg Documented by: Multivitamins/Minerals (Thera M Plus) 1 tab PO DAILY [facility] Last Admin: 04/19/20 08:31 Dose: 1 tab Documented by: Naproxen (Naproxen Sodium) 220 mg PO DAILY PRN PRN Reason: Pain Non-Formulary Medication (Insulin Degludec [Tresiba]) 0 unit SQ BEDTIME [facility] Last Admin: 04/01/20 20:34 Dose: 50 unit Documented by: Non-Formulary Medication (Insulin Degludec [Tresiba]) 0 unit SQ BEDTIME [facility] Last Admin: 04/03/20 20:47 Dose: Not Given Documented by: Orville Own Med 0 unit SQ BEDTIME [facility] Last Admin: 04/15/20 20:18 Dose: 30 unit Documented by: Warfarin 3.75mg (1/2 (X 7.5mg Tab)) 0 each PO MO@1999 [facility] Last Admin: 04/10/20 20:47 Dose: 1 each Documented by: Warfarin 7.5mg (Own (Supply)) 0 each PO SUTUWETHFRSA@1999 [facility] Last Admin: 04/09/20 21:00 Dose: 1 each Documented by: Ondansetron 8mg (Own (Supply)) 1 each PO TID PRN PRN Reason: Nausea Last Admin: 04/27/20 11:26 Dose: 1 each Documented by: Oxycodone 10mg (Own (Supply)) 1 each PO Q6H PRN PRN Reason: Pain (moderate 4-6) Last Admin: 04/21/20 12:25 Dose: 1 each Documented by: Prochlorperazine 10mg Tab (Own Supply ) 1 each PO QID PRN PRN Reason: nausea/vomiting Last Admin: 04/27/20 16:32 Dose: 1 each Documented by: Warfarin 11.25mg (1 (& 1/2 X 7.5mg Tab)) 0 each PO ONETIME ONE Stop: 04/11/20 20:01 Last Admin: 04/11/20 20:17 Dose: 11.25 each Documented by: Warfarin 7.5mg (Own (Supply)) 0 each PO BEDTIME [facility] Last Admin: 04/24/20 20:36 Dose: 1 each Documented by: Oxycodone 10 Mg (Own (Supply)) 1 each PO Q4H PRN PRN Reason: Pain (moderate 4-6) Last Admin: 05/02/20 16:55 Dose: 1 each Documented by: Warfarin 7.5mg (Own (Supply)) 0 each PO SuMoWeThFrSa@1999 [facility] Last Admin: 05/01/20 20:46 Dose: 1 each Documented by: Warfarin 3.75mg (07/08 (X 7.5mg Tab)) 1 each PO Tu@1999 [facility] Last Admin: 04/25/20 20:08 Dose: 1 each Documented by: Ondansetron 8mg Tab (Own Med) 0 each PO TID [facility] Last Admin: 04/30/20 09:22 Dose: 1 each Documented by: Prochlorperazine 10mg Tab Own Med* * 0 each PO 0000,0600,1200,1800 [facility] Last Admin: 05/02/20 17:00 Dose: 1 each Documented by: Ondansetron 8mg Tab ((Own Supply)) 1 each PO TID [facility] Last Admin: 05/02/20 11:11 Dose: 1 each Documented by: Insulin Degludec [ Tresiba] (Own Supply ) 0 unit SQ BEDTIME [facility] Last Admin: 03/22/20 19:54 Dose: 54 unit Documented by: Spencer Young (Monitor Inrs) 1 each .XX ASDIRECTED PRN PRN Reason: other Olanzapine (Zyprexa) 5 mg PO BEDTIME PRN PRN Reason: Nausea Last Admin: 04/27/20 03:44 Dose: 5 mg Documented by: Olanzapine (Zyprexa) 5 mg PO BEDTIME [facility] Last Admin: 05/01/20 20:47 Dose: 5 mg Documented by: Olanzapine (Zyprexa) 5 mg PO BEDTIME PRN PRN Reason: Nausea Ondansetron HCl (Zofran Odt) 8 mg PO TID PRN PRN Reason: Nausea Ondansetron HCl (Zofran Odt) 8 mg PO TID [facility] Last Admin: 05/01/20 11:20 Dose: 8 mg Documented by: Ondansetron HCl (Zofran Odt) 4 mg PO Q6H PRN PRN Reason: Nausea/Vomiting Last Admin: 05/06/20 22:48 Dose: 4 mg Documented by: Ondansetron HCl (Zofran Odt) 8 mg PO TID PRN PRN Reason: Nausea Last Admin: 04/04/20 11:31 Dose: 8 mg Documented by: Oxybutynin Chloride (Oxybutynin Er) 5 mg PO DAILY [facility] Last Admin: 05/02/20 08:13 Dose: 5 mg Documented by: Oxybutynin Chloride (Oxybutynin Er) 5 mg PO DAILY [facility] Last Admin: 04/04/20 09:15 Dose: 5 mg Documented by: Oxycodone HCl (Oxycodone) 10 mg PO Q6H PRN PRN Reason: Pain (moderate 4-6) Oxycodone HCl (Oxycodone) 10 mg PO Q6H PRN PRN Reason: Pain (moderate 4-6) Last Admin: 03/31/20 06:10 Dose: 10 mg Documented by: Phytonadione (Vitamin K) 100 mcg PO DAILY [facility] Last Admin: 05/02/20 08:13 Dose: 100 mcg Documented by: Polyethylene Glycol (Miralax) 17 gm PO BID PRN PRN Reason: Constipation Last Admin: 05/01/20 08:23 Dose: 17 gm Documented by: Polyethylene Glycol (Miralax) 17 gm PO BID [facility] Last Admin: 03/27/20 08:35 Dose: Not Given Documented by: Prochlorperazine Maleate (Compazine) 10 mg PO QID PRN PRN Reason: Nausea Prochlorperazine Maleate (Compazine) 10 mg PO QID PRN PRN Reason: Nausea Last Admin: 04/04/20 09:16 Dose: 10 mg Documented by: Senna/Docusate Sodium (Senna Plus) 1 tab PO BID PRN PRN Reason: Constipation Last Admin: 05/01/20 08:23 Dose: 1 tab Documented by: Warfarin Sodium (Coumadin) 3.75 mg PO MoFr@1999 [facility] Last Admin: 03/27/20 22:06 Dose: 3.75 mg Documented by: Warfarin Sodium (Coumadin) 5 mg PO MO@1999 [facility] Last Admin: 04/03/20 20:46 Dose: 5 mg Documented by: Warfarin Sodium (Coumadin) 7.5 mg PO SUTUWETHFRSA@1999 [facility] Last Admin: 04/02/20 19:54 Dose: 7.5 mg Documented by: Warfarin Sodium (Coumadin) 3.75 mg PO MoFr@1999 [facility] Last Admin: 03/28/20 01:23 Dose: Not Given Documented by: Warfarin Sodium (Coumadin) 7.5 mg PO AmauriClifford@2000 [facility] Last Admin: 03/26/20 19:49 Dose: 7.5 mg Documented by: - Exam Physical Findings Comments:: No spontaneous heart beat. No spontaneous respirations. No response to obnoxious stimuli. *Q Meaningful Use (DIS) - VTE *Q VTE Anticoagulation Contraindications: Med/TX Not Indicated/Need
== END 2020-05-14 06:00 | disposition expired | DRG 948 ==
LOC: VM.MS 09:53
PROVIDERS: ADMIT Family Medicine; ATTEND Family Medicine
DX: R53.1 Weakness (principal); C79.51 Secondary malignant neoplasm of bone; C61 Malignant neoplasm of prostate; R11.2 Nausea with vomiting, unspecified; T45.1X5A Adverse effect of antineoplastic and immunosuppressive drugs, initial encounter; Z51.5 Encounter for palliative care; Z66 Do not resuscitate; Z20.828 Contact with and (suspected) exposure to other viral communicable diseases; F32.9 Major depressive disorder, single episode, unspecified; E11.9 Type 2 diabetes mellitus without complications; E78.5 Hyperlipidemia, unspecified; I10 Essential (primary) hypertension; E66.9 Obesity, unspecified; H52.4 Presbyopia; H52.209 Unspecified astigmatism, unspecified eye; H52.7 Unspecified disorder of refraction; H53.16 Psychophysical visual disturbances; E78.00 Pure hypercholesterolemia, unspecified; M19.90 Unspecified osteoarthritis, unspecified site; M72.2 Plantar fascial fibromatosis; F41.9 Anxiety disorder, unspecified; Z96.659 Presence of unspecified artificial knee joint; K59.03 Drug induced constipation; I95.9 Hypotension, unspecified; Z79.4 Long term (current) use of insulin; Z86.73 Personal history of transient ischemic attack (TIA), and cerebral infarction without residual deficits; Z79.899 Other long term (current) drug therapy; Z79.01 Long term (current) use of anticoagulants; Z86.718 Personal history of other venous thrombosis and embolism; Z98.890 Other specified postprocedural states; Z87.891 Personal history of nicotine dependence; Z68.25 Body mass index [BMI] 25.0-25.9, adult; Z82.3 Family history of stroke; Z82.49 Family history of ischemic heart disease and other diseases of the circulatory system
CPT/HCPCS: 36415; 80053; 82962; 84153; 84154; 85025; 85610; 94760; 97110-GO; 97110-GP; 97116-GP; 97161-GP; 97168-GO; A9270-GY; Q0164; U0002